=== PATIENT | female | born 1945 | race Caucasian/White ===

== ENCOUNTER 2020-02-07 12:49 | Inpatient (IN) | payer MEDICARE, OTHER, SELFPAY ==
[2020-02-07] VITALS (9 sets, daily range): BP systolic 96–131; BP diastolic 62–90; PULSE 85–101; RESP 18; TEMP 36.6–36.7; O2SAT 87–96; BMI 32.1
--- NOTE | 2020-02-07 13:00 | W.ED.FALL ---
HPI - Fall General: Chief Complaint: Fall Stated Complaint: FALL-HIP PAIN Time Seen by Provider: 02/07/20 13:00 History of Present Illness: HPI Narrative: 79-year-old female presents the emergency room via EMS from home. She had a mechanical fall around 730 this morning eventually her although the assistance of neighbors were able to get her up into a chair. She tried to maintain in the chair for a while realize she was not able to get up and get moving on her own and eventually did call the emergency room. She denied loss consciousness denied any other injuries not recently been sick she has any chest pain shortness of breath UTI symptoms any GI or symptoms. complaint: fall Onset (ago): hour(s) Fall witnessed: yes, by family Place fall occurred: home Loss of consciousness: None Symptoms prior to fall: none Context: tripped/slipped Associated symptoms-after fall: Denies abdominal pain or chest pain Review of Systems Const: Denies: fever(s), chills, body aches, change in appetite, fatigue or malaise ENMT: Denies: throat pain, ear or mastoid pain, nasal discharge or nasal congestion Card: Denies: chest pain, edema, dyspnea on exertion or orthopnea Resp: Denies: dyspnea, productive cough or non-productive cough GI: Denies: abdominal pain, nausea, vomiting, hematemesis, coffee ground emesis, diarrhea, constipation, bloating, hematochezia or melena : Denies: flank pain, difficulty voiding, dysuria, urinary frequency or urinary urgency Musc: Reports: joint pain (Left hip external rotation and shortening) Skin/Breast: Denies: rash or pruritus PFSH ED PFSH: Medical History Atrial fibrillation Branchial cleft cyst Congestive heart failure Diabetes mellitus Sciatica Surgical History H/O section H/O vein stripping History of appendectomy Family History Father Cancer Colon cancer - of this. Mother Broken hip Social History Smoking and tobacco status: former smoker Physical Exam Const: COMMON NORMALS: no acute distress GENERAL APPEARANCE: cooperative and comfortable ORIENTATION/CONSCIOUSNESS: Yes awake, Yes oriented to person, Yes oriented to place and Yes oriented to time HENMT: COMMON NORMALS: normocephalic, atraumatic, hearing grossly normal bilaterally, external ears normal, EAC's normal, TM's normal bilaterally, Normal nasal mucous membranes and turbinates present, moist oral mucous membranes and oropharynx normal HEAD & SCALP: normocephalic and atraumatic NOSE: Normal nasal mucous membranes and turbinates present EXTERNAL EAR: Yes external ears normal EXTERNAL AUDITORY CANAL: EAC's normal TYMPANIC MEMBRANE: TM's normal bilaterally Eye: COMMON NORMALS: Equal, round and reactive pupils present, EOMs intact bilaterally, conjunctivae normal and no scleral icterus CONJUNCTIVA: Yes conjunctivae normal PUPIL: Yes Equal, round and reactive pupils present Neck/C-Spine: COMMON NORMALS: full ROM, no lymphadenopathy, supple and no JVD Lymph: LYMPHATIC: no lymphadenopathy noted and no lymphedema noted Resp: COMMON NORMALS: normal respiratory effort, No retractions, No use of accessory muscles and clear to auscultation bilaterally AUSCULTATION: clear to auscultation bilaterally Cardio: COMMON NORMALS: no JVD, regular rate, regular rhythm and No murmurs present (Cardio) RATE: regular rate RHYTHM: regular rhythm GI: COMMON NORMALS: Soft to palpation and No hepatosplenomegaly present AUSCULTATION: Yes normoactive bowel sounds PALPATION: Yes Soft to palpation, No Tenderness to palpation present (GI), No Guarding due to palpation present (GI) and Yes No hepatosplenomegaly present Extremity: NARRATIVE EXTREMITY EXAM: External rotation and shortening of the left hip pulses at dorsalis pedis and posterior tibialis are present. Deformities consistent with fracture. Neuro: SENSORIUM/ORIENTATION: Yes oriented to person, Yes oriented to place and Yes oriented to time Skin: COMMON NORMALS: no rashes or lesions noted GENERAL SKIN EXAM: no rashes or lesions noted Course Vital Signs: Vital signs: Vital Signs Temperature 99.0 F 02/10/20 12:20 Pulse Rate 81 02/10/20 12:20 Respiratory Rate 16 02/10/20 12:20 Blood Pressure 106/61 02/10/20 12:20 Pulse Oximetry 97 02/10/20 11:35 MDM - Fall MDM Narrative: Medical decision making narrative: Intertrochanteric hip fracture. Discussed with Ortho and to the hospitalist will admit patient will need further evaluation prior to surgery. Lab Data: Labs: Lab Results 02/07/20 02/07/20 02/07/20 Range/Units 13:04 13:04 13:04 WBC 14.6 H (4.0-10.0) 10^3/ uL RBC 4.27 (4.1-5.3) 10^6/u L Hgb 11.8 (11.5-15.3) g/dL Hct 40.5 (37.0-47.0) % MCV 94.8 (81-99) fL MCH 27.6 L (28.0-34.0) pg MCHC 29.1 L (30.0-36.0) g/dL RDW 14.2 (12.1-15.1) % Plt Count 394 (130-400) 10^3/c mm MPV 10.2 (7.4-10.4) fL Neut % (Auto) 82.1 % Lymph % (Auto) 10.2 % [place] % (Auto) 6.5 % Eos % (Auto) 0.5 % Baso % (Auto) 0.3 % Neut # (Auto) 12.0 H (1.8-7.7) 10^3/u L Lymph # (Auto) 1.5 (0.8-4.8) 10^3/u L [place] # (Auto) 1.0 H (0.2-0.9) 10^3/u L Eos # (Auto) 0.1 (0.0-0.8) 10^3/u L Baso # (Auto) 0.1 (0.0-0.1) 10^3/u L Nucleated RBC % (a uto) 0 % Nucleated RBCs # 0.0 /100WBC PT 38.20 H (10.5-13.3) SECO NDS INR 3.71 H (0.8-1.2) Sodium 135 L (136-145) mmol/L Potassium 4.8 (3.5-5.1) mmol/L Chloride 95 L (98-107) mmol/L Carbon Dioxide 27 (22-29) mmol/L Anion Gap 17.8 (5-19) BUN 17 (8-23) mg/dL Creatinine 0.9 (0.5-0.9) mg/dL Glucose 193 H (65-115) mg/dL Calculated Osmolal ity 282 L (285-295) mOsm/k g Calcium 9.7 (8.5-10.5) mg/dL Total Bilirubin 0.3 (0.15-1.2) mg/dL AST 10 (0-32) U/L ALT 9 (0-33) U/L Alkaline Phosphata se 69 (35-105) IU/L Total Protein 8.2 (6.6-8.7) g/dL Albumin 4.1 (3.5-5.2) g/dL Globulin 4.1 (1.3-4.6) g/dL Discharge Plan Discharge Patient Disposition: Admitted As Inpatient Admit Provider: Yuni Weems Clinical Impression: Closed intertrochanteric fracture of left hip Qualifiers: Encounter type: subsequent encounter Fracture alignment: displaced Fracture healing: with routine healing Qualified Code(s): S72.142D - Displaced intertrochanteric fracture of left femur, subsequent encounter for closed fracture with routine healing Condition: Stable Referrals: Reece Garcia MD [Primary Care Provider] - Discharge Date/Time: 02/07/20 18:35 Coding Level of Care Code ED Manager Technical Training for Chg Fwd Exam Comprehensive
--- NOTE | 2020-02-07 13:01 | XR_ITS ---
WS: [id number] PELVIS AND LEFT HIP HISTORY: fall pain COMPARISON: None available. LEFT hip: Acute intertrochanteric hip fracture with avulsion of the lesser trochanter. There is impac tion along the fracture line. Osteophytic ridging around the acetabulum and mild joint space narrowin g. Bones are diffusely osteopenic throughout the pelvis. Bilateral osteoarthritis at the hip joints. XR/XR hip LT 2-3V wo/w pel* [id number] IMPRESSION: 1. Acute impacted LEFT intertrochanteric hip fracture with avulsion of the les ser trochanter. 2. Bilateral hip joint osteoarthritis.
[2020-02-07 13:41] LABS: Basophils # 0.1 10^3/uL (0.0-0.1); Basophils % 0.3 %; Eosinophils # 0.1 10^3/uL (0.0-0.8); Eosinophils % 0.5 %; Hematocrit 40.5 % (37.0-47.0); Hemoglobin 11.8 g/dL (11.5-15.3); Lymphocytes # 1.5 10^3/uL (0.8-4.8); Lymphocytes % 10.2 %; Mean Corpuscular HGB Conc 29.1 g/dL (30.0-36.0); Mean Corpuscular Hemoglobin 27.6 pg (28.0-34.0); Mean Corpuscular Volume 94.8 fL (81-99); Mean Platelet Volume 10.2 fL (7.4-10.4); Monocytes % 6.5 %; Neutrophils % 82.1 %; Nucleated Red Blood Cells % 0 %; Platelet Count 394 10^3/cmm (130-400); Red Blood Count 4.27 10^6/uL (4.1-5.3); Red Cell Distribution Width 14.2 % (12.1-15.1); White Blood Count 14.6 10^3/uL (4.0-10.0)
[2020-02-07 13:46] LABS: INR 3.71 (0.8-1.2)
--- NOTE | 2020-02-07 13:49 | PC.NURSE ---
portable xray at bedside
[2020-02-07 13:59] LABS: Alanine Aminotransferase 9 U/L (0-33); Albumin Level 4.1 g/dL (3.5-5.2); Alkaline Phosphatase 69 IU/L (35-105); Anion Gap 17.8 (5-19); Aspartate Amino Transferase 10 U/L (0-32); Blood Urea Nitrogen 17 mg/dL (8-23); Calcium 9.7 mg/dL (8.5-10.5); Carbon Dioxide 27 mmol/L (22-29); Chloride 95 mmol/L (98-107); Globulin 4.1 g/dL (1.3-4.6); Glucose 193 mg/dL (65-115); Osmolality Calculated 282 mOsm/kg (285-295); Potassium 4.8 mmol/L (3.5-5.1); Sodium 135 mmol/L (136-145); Total Bilirubin 0.3 mg/dL (0.15-1.2); Total Protein 8.2 g/dL (6.6-8.7)
--- NOTE | 2020-02-07 14:06 | XR_ITS ---
WS: [id number] PORTABLE CHEST HISTORY: hip fracture COMPARISON: 03/23/2008 Hyperinflated lungs. Slight elevation of the LEFT hemidiaphragm. No pleural effusion or pneumothorax. Cardiac size: Mildly enlarged cardiac silhouette. Mediastinum/Aorta: Ectatic thoracic aorta. No osseous abnormality seen. XR/XR chest 1V portable [id number] IMPRESSION: Chronic emphysema and cardiomegaly. No pneumonia.
[2020-02-07] MEDS: morphine 4 mg/mL SDV 1 mL IVP ×2 (14:13→18:26)
[2020-02-07] MEDS: ondansetron 2 mg/ML SDV 2 mL 4 MG IVP (14:13)
--- NOTE | 2020-02-07 17:24 | PM.CONSULT ---
Providers/Reason For Consult Consulting Physican/Specialty*: Mason fabian [facility]– [place][note 2] Orthopedic surgery Reason for Consult*: Left hip pain Primary Care Provider: Reece Garcia MD History of Present Illness History of Present Illness Darshana Puri is a 74 year old female who sustained a mechanical fall today. She had complaints of left hip pain. She was brought to the [facility] emergency room x-rays were taken which show displaced left intertrochanteric hip fracture and mild underlying osteoarthritis of the left hip. Review of Systems Const: Denies: fever(s) or chills Card: Reports: irregular heart rhythm (due to chronic afib) and swelling of feet/ankles; Denies: chest pain, palpitations, syncope or pre-syncope GI: Denies: abdominal pain, nausea or vomiting Musc: Reports: extremity pain (left hip due to fall) and joint pain (left hip); Denies: neck pain or back pain Neuro: Denies: frequent falls, dizziness or vertigo Psych: Denies: anxiety or depression Kade/Lymph: Reports: easy bruising (on coumadin) Meds/Allergies Home Medications and Allergies Home Medications Medication Instructions Recorded Confirmed Last Taken Type acetaminophen [Tylenol] 325 mg PO QID PRN 02/07/20 02/07/20 02/07/20 History amlodipine 2.5 mg PO DAILY 02/07/20 02/07/20 02/06/20 History carvedilol 25 mg PO BID 02/07/20 02/07/20 02/06/20 History citalopram 40 mg PO DAILY 02/07/20 02/07/20 02/06/20 History digoxin 0.25 mcg PO DAILY 02/07/20 02/07/20 02/06/20 History ferrous sulfate 65 mg PO BID 02/07/20 02/07/20 02/06/20 History furosemide 40 mg PO DAILY 02/07/20 02/07/20 02/06/20 History gabapentin 100 mg PO BID 02/07/20 02/07/20 02/06/20 History lisinopril 20 mg PO DAILY 02/07/20 02/07/20 02/06/20 History metformin See Rx Instructions .ROUTE .COMPLEX 02/07/20 02/07/20 02/06/20 History potassium chloride 20 meq PO DAILY 02/07/20 02/07/20 02/06/20 History simvastatin 40 mg PO DAILY 02/07/20 02/07/20 02/06/20 History warfarin See Rx Instructions .ROUTE .COMPLEX 02/07/20 02/07/20 02/06/20 History 5.5MG Allergies Allergy/AdvReac Type Severity Reaction Status Date / Time meperidine [From Demerol] Allergy Unknown Verified 02/07/20 13:00 PFSH Acute PFSH: Medical History (Updated 02/07/20 @ 20:31 by Reece Garcia MD) Atrial fibrillation Branchial cleft cyst Congestive heart failure Diabetes mellitus Sciatica Surgical History (Updated 02/07/20 @ 20:31 by Reece Garcia MD) H/O section H/O vein stripping History of appendectomy Family History (Updated 02/07/20 @ 20:33 by Reece Garcia MD) Father Cancer Colon cancer - of this. Mother Broken hip Social History (Updated 02/07/20 @ 15:11 by Alvaro Hillman DO) Smoking and tobacco status: former smoker Vitals/I&O/Wt Last Vital Signs Pulse 85 02/07/20 14:50 Resp 18 02/07/20 12:54 BP 109/65 02/07/20 14:50 Pulse Ox 90 02/07/20 14:50 Weight last 48 hrs Weight 250 lb Physical Exam Const: COMMON NORMALS: no acute distress, average body habitus, patient oriented x3, healthy appearing, alert and well nourished HENMT: COMMON NORMALS: atraumatic and moist oral mucous membranes HEAD & SCALP: atraumatic Neck/C-Spine: COMMON NORMALS: supple and no JVD Resp: COMMON NORMALS: normal respiratory effort, No use of accessory muscles and clear to auscultation bilaterally EFFORT & INSPECTION: Yes able to speak in complete sentences AUSCULTATION: clear to auscultation bilaterally Cardio: COMMON NORMALS: no JVD, regular rate, S1 normal heart sound present and S2 normal heart sound present; negative for regular rhythm RATE: regular rate RHYTHM: abnormal rhythm HEART SOUNDS: S1 normal heart sound present and S2 normal heart sound present Extremity: OTHER: left lower extremity shortened and externally rotated compared to right Neuro: COMMON NORMALS: patient oriented x3 SENSORIUM/ORIENTATION: Yes alert Urinary Catheter Management^: Cates: Cath Placed During This Visit: yes Reason for Continuing Indwelling Catheter: Required Immobilization for Trauma or Surgery or Anesthesia Urinary Catheter Date of Insertion: 02/07/20 Urinary Catheter Time of Insertion: 16:30 A&P Assessment and plan (1) Closed intertrochanteric fracture of left hip: Patient to be medically optimized prior to surgery for tomorrow. Coumadin placed on hold hospital team to work on reversing her Coumadin. The ER has already ordered a dose of oral vitamin K. Patient will most likely require fresh frozen plasma in the morning prior to surgery to normalize her INR Prophylactic antibiotic ordered prior to surgery but with IV cefazolin and vancomycin due to the high prevalence of MRSA in the local area and cefazolin as it is better to use for gram-positive organisms other than MRSA Tranexamic acid ordered preop and will be ordered prior to closure to decrease blood loss due to the patient's anticoagulation status Patient to be n.p.o. after midnight Type and screen and type and cross orders have been placed as well as a.m. labs to check CBC, BMP and INR Status: Acute (2) Diabetes mellitus: Status: Acute (3) Atrial fibrillation: Status: Acute (4) Congestive heart failure: Status: Acute (5) Sciatica: Status: Acute Consult Attestations Medical Necessity Statement: Patient's care will likely cover 2 overnight stays depending on her postoperative progress discharge from facility to long-term versus home. Plan will be for the patient be weightbearing as tolerated postoperatively Time Spent in Patient Care: 16 - 35 minutes (>than 50% of time spent in counselling and/or direct pt care on unit). Coding Level of Care Code Acute Nursing Informatics Specialist for Junior Kumar Diagnoses Closed intertrochanteric fracture of left hip S72.142A Diabetes mellitus E11.9 Atrial fibrillation I48.91 Congestive heart failure I50.9 Sciatica M54.30
[2020-02-07] MEDS: phytonadione (ADULT) 10 mg/mL Ampule 1 mL 5 MG PO (17:30)
[2020-02-07 17:45] LABS: Add Urine Microscopic? YES; Bilirubin Urine 1+ (NEGATIVE); Blood Urine 2+ (Negative); Glucose Urine UA Norm (Normal); Ketones Urine Negative (Negative); Leukocyte Esterase Urine Trace (Negative); Nitrate Urine Positive (Negative); Protein Urine Neg (Negative); Specific Gravity, Urine 1.015 (1.005-1.030); Urine Appearance Cloudy (CLEAR); Urine Color Yellow (Yellow); Urobilinogen Urine 1 mg/dL (Negative); pH Urine 5 (5-7)
[2020-02-07 17:58] LABS: Add Urine Culture? Yes; Bacteria Urine 4+; Squamous Epithelial Cell Urine 0-4 (0-5)
--- NOTE | 2020-02-07 20:25 | ECG_ITS ---
Measurements Intervals Winner Rate: 101 P: MT: 0 QRS: -44 QRSD: 101 T: 58 QT: 339 QTc: 439 ATRIAL FIBRILLATION WITH RAPID VENTRICULAR RESPONSE MARKED LEFT AXIS DEVIATION [QRS AXIS < -30] INCOMPLETE RIGHT BUNDLE BRANCH BLOCK [90+ ms QRS DURATION, TERMINAL R IN V1/V2, 40+ ms S IN I/aVL/V4/V5/V6] SEPTAL MYOCARDIAL INFARCTION [40+ ms Q WAVE IN V1/V2], PROBABLY OLD No previous ECG available for comparison Electronically Signed On 02-08-2020 11:49:23 CDT by Gigi Ortega M.D. [email or web address]
--- NOTE | 2020-02-07 20:26 | PM.HP ---
Providers/Chief Complaint Admitting Physician: Reece Garcia MD Primary Care Provider: Reece Garica MD Chief Complaint: fall History of Present Illness Darshana Puri is a 74 year old female with past medical history of CHF with ejection fraction of 35% in 2007, diabetes mellitus type 2, hypertension, atrial fibrillation on Coumadin, dyslipidemia, chronic low back pain. The patient was in her home and making her bed, when she got tripped up in her sheets and fell onto her left side. The patient says that she hit her head but did not lose consciousness. The patient noted significant pain in the left hip. She had difficulty with standing so her and a friend helped her and they came to the emergency department. In the ER the patient was found to have a fracture of the left hip. Dr. Russell has evaluated the patient. I have been consulted to address medical issues. The patient denies any current or recent chest pains. She denies any tightness, squeezing or pressure in her chest. Patient states that she could typically walk around without having significant dyspnea. The patient denies any cough, fever, nausea, vomiting, diarrhea, constipation, abdominal pain. She notes incontinence that is chronic in nature without dysuria. Medications/Allergies Home Medications Medication Instructions Recorded Confirmed Last Taken Type acetaminophen [Tylenol] 325 mg PO QID PRN 02/07/20 02/07/20 02/07/20 History amlodipine 2.5 mg PO DAILY 02/07/20 02/07/20 02/06/20 History carvedilol 25 mg PO BID 02/07/20 02/07/20 02/06/20 History citalopram 40 mg PO DAILY 02/07/20 02/07/20 02/06/20 History digoxin 0.25 mcg PO DAILY 02/07/20 02/07/20 02/06/20 History ferrous sulfate 65 mg PO BID 02/07/20 02/07/20 02/06/20 History furosemide 40 mg PO DAILY 02/07/20 02/07/20 02/06/20 History gabapentin 100 mg PO BID 02/07/20 02/07/20 02/06/20 History lisinopril 20 mg PO DAILY 02/07/20 02/07/20 02/06/20 History metformin See Rx Instructions .ROUTE .COMPLEX 02/07/20 02/07/20 02/06/20 History potassium chloride 20 meq PO DAILY 02/07/20 02/07/20 02/06/20 History simvastatin 40 mg PO DAILY 02/07/20 02/07/20 02/06/20 History warfarin See Rx Instructions .ROUTE .COMPLEX 02/07/20 02/07/20 02/06/20 History 5.5MG Allergies Allergy/AdvReac Type Severity Reaction Status Date / Time meperidine [From Demerol] Allergy Unknown Verified 02/07/20 13:00 PFSH Acute PFSH: Medical History (Updated 02/07/20 @ 20:31 by Reece Garcia MD) Atrial fibrillation Branchial cleft cyst Congestive heart failure Diabetes mellitus Sciatica Surgical History (Updated 02/07/20 @ 20:31 by Reece Garcia MD) H/O section H/O vein stripping History of appendectomy Family History (Updated 02/07/20 @ 20:33 by Reece Garcia MD) Father Cancer Colon cancer - of this. Mother Broken hip Social History (Updated 02/07/20 @ 20:33 by Reece Garcia MD) Smoking and tobacco status: former smoker Vitals/I&O/Wt Last Vital Signs Temp 98.0 F 02/07/20 19:55 Pulse 101 H 02/07/20 19:55 Resp 18 02/07/20 19:55 BP 131/90 02/07/20 19:55 Pulse Ox 91 02/07/20 19:55 02/07/20 02/07/20 02/07/20 06:59 14:59 22:59 Output Total 550 / 550 Balance -550 / -550 Weight last 48 hrs Weight 250 lb Physical Exam Narrative: EXAM NARRATIVE: General: Alert and oriented x3 Eyes: PERRLA, EOMI Mouth: Mildly dry mucous membranes without lesions Cardiac: Regular rate with irregularly irregular rhythm. No significant murmurs appreciated. Lungs: Decreased air entry bilaterally with occasional wheezes, without crackles or rhonchi. Abdomen: Soft, nontender, no hepatosplenomegaly noted Extremities: No edema. Good pulses in the bilateral feet. Tenderness over the left hip to palpation. Left leg is shorter than the right and everted. Urinary Catheter Management^: Cates: Cath Placed During This Visit: yes Reason for Continuing Indwelling Catheter: Required Immobilization for Trauma or Surgery or Anesthesia Urinary Catheter Date of Insertion: 02/07/20 Urinary Catheter Time of Insertion: 16:30 Data : 02/07/20 13:04 02/07/20 13:04 A&P Assessment and plan (1) Congestive heart failure: Status: Acute (2) Atrial fibrillation: Status: Acute (3) Diabetes mellitus: Status: Acute (4) Closed intertrochanteric fracture of left hip: Status: Acute (5) Hypertension: Status: Acute Additional A&P Information 1. Acute fracture of the left hip -the patient had a traumatic fracture of the left hip. She has been seen by Dr. Russell who plans to do surgery tomorrow. From a medical standpoint, the patient does have some underlying risks specifically related to her heart. I would like to get an echocardiogram to look for signs of change compared to her last done in 2007. This has been ordered for tomorrow morning. We will keep the patient n.p.o. after midnight and plan tentatively for surgery tomorrow depending on results. 2. Congestive heart failure -the patient had an ejection fraction of 35% on echocardiogram done in 2007. She had not wanted to follow-up with further testing in the past. The patient currently denies any chest pains, shortness of breath or other cardiac related symptoms. She has been able to ambulate well without significant dyspnea. I would like to get an echocardiogram to further evaluate her overall function prior to surgery if possible. If there are concerning signs, I may recommend that cardiology sees the patient prior to surgery to help assess the overall risk of a significant surgery. I did speak with the patient regarding her CODE STATUS and she would like to be full code at this time. She will speak with her and discuss possible nuances with him tomorrow morning prior to surgery. 3. Atrial fibrillation -the patient is currently rate controlled with her A. fib and has been on Coumadin. She was given vitamin K in the ER. We will recheck INR tomorrow. 4. Diabetes mellitus -I will check an A1c and have the patient use sliding scale insulin while in the hospital. 5. Hypertension -the patient's blood pressures currently stable. Continue with home medications. 6. Urinary tract infection -patient has a UTI and we will make sure that she gets IV antibiotics prior to surgery. Urine cultures currently pending. 7. Prophylaxis -SCDs for now and after surgery will plan for prophylactic medications per surgery's recommendations. Attestations Medical Necessity Statement*: The patient will be here for greater than 2 midnights due to treatment of hip fracture. Inpatient care is required. Coding Level of Care Code Acute Commercial Light Fixture Assembler for Junior Kumar Diagnoses Congestive heart failure I50.9 Atrial fibrillation I48.91 Diabetes mellitus E11.9 Closed intertrochanteric fracture of left hip S72.142A Hypertension I10
[2020-02-07] MEDS: sodium chloride 0.9% 1,000 ML 100 ML IV (20:35)
[2020-02-07] MEDS: carvedilol 25 mg Tablet PO (20:36)
[2020-02-07] MEDS: gabapentin 100 mg Capsule PO (20:36)
[2020-02-07 22:00] LABS: Glucose Point of Care 189 mg/dL (70-110)
[2020-02-07] MEDS: cefTRIAXone 2,000 MG in sodium chloride 0.9% (plus) 50 ML 100 MG IV (22:07)
[2020-02-08] VITALS (33 sets, daily range): BP systolic 91–140; BP diastolic 49–81; PULSE 77–112; RESP 15–21; TEMP 36.5–37.2; O2SAT 91–99
--- NOTE | 2020-02-08 | XR_ITS ---
WS: [id number] C-ARM RADIOGRAPHS LEFT HIP; 6 IMAGES HISTORY: Fracture fixation COMPARISON: 02/07/2020 Intraoperative imaging during intramedullary stefania and femoral neck screw placement for fixation of an intertrochanteric fracture. Fracture is now in good position alignment. Avulsion of the greater troch anter is also evident. XR/XR hip LT 2-3V wo/w pel* [id number] IMPRESSION: Status post ORIF LEFT intertrochanteric hip fracture in good alignment.
--- NOTE | 2020-02-08 | SCC_ITS ---
Procedure Done: Attempted closed followed by open reduction internal fixation with intramedullary nailing with proximal distal interlocking left intertrochanteric hip fracture 218.5 seconds of fluoroscopic guidance, for a cumulative dose of 60.14 mGy, was provided to Dr. Russell by the radiology department. C-arm images of the LEFT hip were saved for the patient's permanent record. [facility]
[2020-02-08 02:47] LABS: Alanine Aminotransferase 8 U/L (0-33); Albumin Level 3.4 g/dL (3.5-5.2); Alkaline Phosphatase 56 IU/L (35-105); Anion Gap 12.5 (5-19); Aspartate Amino Transferase 10 U/L (0-32); Blood Urea Nitrogen 14 mg/dL (8-23); Calcium 8.3 mg/dL (8.5-10.5); Carbon Dioxide 31 mmol/L (22-29); Chloride 97 mmol/L (98-107); Glucose 149 mg/dL (65-115); Osmolality Calculated 281 mOsm/kg (285-295); Phosphorus 3.9 mg/dL (2.5-4.5); Potassium 4.5 mmol/L (3.5-5.1); Sodium 136 mmol/L (136-145); Total Bilirubin 0.3 mg/dL (0.15-1.2); Total Protein 6.4 g/dL (6.6-8.7)
[2020-02-08 02:48] LABS: Basophils % 0.3 %; Eosinophils # 0.1 10^3/uL (0.0-0.8); Eosinophils % 0.9 %; Hemoglobin 9.4 g/dL (11.5-15.3); Lymphocytes # 1.2 10^3/uL (0.8-4.8); Lymphocytes % 14.8 %; Mean Corpuscular HGB Conc 29.4 g/dL (30.0-36.0); Mean Corpuscular Hemoglobin 27.8 pg (28.0-34.0); Mean Corpuscular Volume 94.7 fL (81-99); Mean Platelet Volume 9.9 fL (7.4-10.4); Monocytes # 0.8 10^3/uL (0.2-0.9); Monocytes % 10.5 %; Neutrophils # 5.7 10^3/uL (1.8-7.7); Neutrophils % 73.1 %; Nucleated Red Blood Cells % 0 %; Platelet Count 288 10^3/cmm (130-400); Red Blood Count 3.38 10^6/uL (4.1-5.3); Red Cell Distribution Width 14.2 % (12.1-15.1); White Blood Count 7.8 10^3/uL (4.0-10.0)
[2020-02-08 03:07] LABS: Estmated Average Glucose 154
[2020-02-08] MEDS: morphine 4 mg/mL SDV 1 mL 2 MG IVP ×2 (05:39→09:29)
[2020-02-08 06:12] LABS: Glucose Point of Care 170 mg/dL (70-110)
[2020-02-08] MEDS: sodium chloride 0.9% 1,000 ML 100 ML IV ×2 (07:26→17:19)
--- NOTE | 2020-02-08 07:56 | P.PN_ITS ---
Subjective Subjective: Interval history: Patient is feeling well today. She denies any chest pains or shortness of breath. She has had some pain with the hip fracture that is been well controlled with morphine as long as she does not move. Vitals/I&O/Wt Last Vital Signs Temp 98.2 F 02/08/20 04:00 Pulse 103 H 02/08/20 04:00 Resp 18 02/08/20 05:39 BP 132/70 02/08/20 04:00 Pulse Ox 96 02/08/20 04:00 02/07/20 02/08/20 02/08/20 22:59 06:59 14:59 Intake Total 1000 / 1000 50 / 50 Output Total 550 / 550 400 / 950 Balance -550 / -550 600 / 50 50 / 50 Weight last 48 hrs Weight 250 lb Physical Exam Narrative: EXAM NARRATIVE: General: Alert and oriented x3 Eyes: PERRLA, EOMI Mouth: Mucous membranes moist. Cardiac: Regular rate with irregularly irregular rhythm. No significant murmurs appreciated. Lungs: Decreased air entry bilaterally with occasional wheezes, without crackles or rhonchi. Abdomen: Soft, nontender, no hepatosplenomegaly noted Extremities: No edema. Good pulses in the bilateral feet. Tenderness over the left hip to palpation. Left leg is shorter than the right and everted. Urinary Catheter Management^: Cates: Cath Placed During This Visit: yes Reason for Continuing Indwelling Catheter: Required Immobilization for Trauma or Surgery or Anesthesia Urinary Catheter Date of Insertion: 02/07/20 Urinary Catheter Time of Insertion: 16:30 Data : 02/08/20 02:05 02/08/20 02:05 Micro: Microbiology 02/07/20 21:01 Blood Culture - Preliminary Blood SPECIMEN COLLECTED 02/07/20 20:53 Blood Culture - Preliminary Blood SPECIMEN COLLECTED A&P Assessment and plan (1) Congestive heart failure: Status: Acute (2) Atrial fibrillation: Status: Acute (3) Diabetes mellitus: Status: Acute (4) Closed intertrochanteric fracture of left hip: Status: Acute (5) Hypertension: Status: Acute Additional A&P Information 1. Acute fracture of the left hip -the patient had a traumatic fracture of the left hip. She has been seen by Dr. Russell who plans to do surgery later today. From a medical standpoint, the patient does have some underlying risks specifically related to her heart. Echocardiogram was done this morning and I would like to have cardiology look for signs of change compared to her last done in 2007. We will keep the patient n.p.o. after midnight and plan tentatively for surgery tomorrow depending on results. 2. Congestive heart failure -the patient had an ejection fraction of 35% on echocardiogram done in 2007. She had not wanted to follow-up with further testing in the past. The patient currently denies any chest pains, shortness of breath or other cardiac related symptoms. She has been able to ambulate well without significant dyspnea. Echocardiogram was done this morning. If there are concerning signs, I may recommend that cardiology sees the patient prior to surgery to help assess the overall risk of a significant surgery. I did speak with the patient regarding her CODE STATUS and she would like to be full code at this time. She will speak with her and discuss possible nuances with him tomorrow morning prior to surgery. 3. Atrial fibrillation -the patient is currently rate controlled with her A. fib and has been on Coumadin. She was given vitamin K in the ER. INR for this morning is pending. 4. Diabetes mellitus -I will check an A1c and have the patient use sliding scale insulin while in the hospital. 5. Hypertension -the patient's blood pressures currently stable. Continue with home medications. 6. Urinary tract infection -patient has a UTI and was given 2 g of Rocephin last night. We will continue with this every 24 hours unless she is given other antibiotics for surgical prophylaxis which would also cover. 7. Prophylaxis -SCDs for now and after surgery will plan for prophylactic medications per surgery's recommendations. Attestations Medical Necessity Statement*: The patient will be here for greater than 2 midnights for treatment of acute hip fracture. She continues to need inpatient care. Coding Level of Care Code Acute Phlebotomy Services Technician for Junior Kumar Diagnoses Congestive heart failure I50.9 Atrial fibrillation I48.91 Diabetes mellitus E11.9 Closed intertrochanteric fracture of left hip S72.142A Hypertension I10
[2020-02-08 08:08] LABS: INR 2.44 (0.8-1.2)
[2020-02-08] MEDS: amlodipine 5 mg Tablet 2.5 MG PO (08:53)
[2020-02-08] MEDS: FUROsemide 40 mg Tablet PO (08:53)
[2020-02-08] MEDS: atorvastatin 40 mg Tablet 20 MG PO (08:53)
[2020-02-08] MEDS: citalopram 20 mg Tablet 40 MG PO (08:53)
[2020-02-08] MEDS: carvedilol 25 mg Tablet PO ×2 (08:53→17:31)
[2020-02-08] MEDS: lisinopril 20 mg Tablet PO (08:54)
[2020-02-08] MEDS: gabapentin 100 mg Capsule PO ×2 (08:54→17:31)
[2020-02-08] MEDS: sodium chloride 0.9% (100 ml) 100 ML 50 ML (09:16)
[2020-02-08] MEDS: digoxin 250 mcg Tablet PO (09:30)
[2020-02-08 10:54] LABS: INR 1.43 (0.8-1.2)
[2020-02-08 11:04] LABS: Glucose Point of Care 169 mg/dL (70-110)
--- NOTE | 2020-02-08 11:24 | PC.CHAP ---
Pastoral Care Encounter/Spiritual Assessment Type of Contact [] Declined engine room helper visit [] Patient/Family/Request visit [] Outpatient visit [] Follow-up visit [] Physician referral [] Code/Alert [x] Routine visit [] Staff referral [] Actively dying [] Patient sleeping [] Family support [] [] Out of room [] Palliative care [] [] Receiving care in room [] Pre-surgical visit [] Trauma [] Long length of stay [] ICU visit [] Other: Relational/Emotional Strength [x] Patient feels connected with others/family/visitors/staff [] Distress [] Loneliness/isolation [] Abandonment Spirituality of Patient [x] Person of Mago [x] Attends Evangelical of their Mago [x] Believes in Prayer [x] Reads Bible or Oriental Orthodox materials [] There are Spiritual issues to be addressed Supervisor Garage Interventions [x] Prayer [x] Active listening [x] Non-anxious presence [x] Spiritual/emotional support [] Crisis/trauma care [] Spiritual counseling [] Bereavement support [] Provided bereavement packet [] Provided Bible/devotional materials [] Provided toy/stuffed animal, coloring book to patient or family member [] Provided Communion [] Anointing/[place] [] Salvation [x] Completed spiritual assessment [] Other: Impact on Illness or Injury [] Angry [] Fearful [] Anxious [] Often cries [] Exhaustion [] Unable to work [] Unable to attend buddhism [] Unable to walk/stand [] Unable to read [] Unable to drive [] Unable to eat/drink [] Unable to sleep [] Unable to be with family [] Patient intubated [x] Other: Summary Patient is strong in her committed mago in the person and work of Robert Jang. Time spent with patient 15 minutes
--- NOTE | 2020-02-08 11:37 | ANES.PREANE2 ---
Pre-Anesthetic Assessment Pre-Anesthetic Assessment: Height/Weight: Height 1.88 m Weight 113.398 kg Temp Pulse Resp BP Pulse Ox 98.5 F 84 16 100/56 94 02/08/20 10:55 02/08/20 10:55 02/08/20 10:55 02/08/20 10:55 02/08/20 10:55 Preop Diagnosis: displaced lef tintertrochanteric hip fracture Proposed Procedure: Operation Date: 02/08/20 12:30 Proposed Procedures p Hip Screw Closed Reduction Percutaneous Pinning Hip Screw(Left) - Mason Russell DO Last intake: Intake Last Liquid Date 02/07/20 Last Liquid Time 08:00 Last Solid Date 02/07/20 Last Solid Time 08:00 Social: Social History: Tobacco (quit) and No alcohol Exam: Pre-Anes Outpt Exam: alert, oriented x 3, clear to auscultation bilaterally and regular rate & rhythm (irreg rhythm) Airway: Submandibular: WNL Cervical ROM: WNL MP: 2 Dentition: False (upper and lower) History/ROS: No significant history except as noted Pulmonary: Pulmonary: PGAE CV/HEM: CV/HEM: Arrythmia (afib), CHF and HTN : : None reported Hepatic: Hepatic: None reported GI: GI: None reported Metabolic: Metabolic: DM, Hyperlipidemia and Morbid obesity Musc/skel: Musc/skel: OA/DJD Neuropsych: Neuropsych: Anxiety and Depression Anesthetic Plan: ASA status: 4 Anesthesia: Anesthesia Evaluation and General Risk of > 500 ml blood loss (7ml/kg in children): No Meds/Allergies Current Medications: Current Medications Generic Name Dose Route Start Last Admin Trade Name Freq PRN Reason Stop Dose Admin Amlodipine Besylat e 2.5 mg 02/08/20 09:00 02/08/20 08:53 Norvasc PO 2.5 mg DAILY EMY Administration Atorvastatin Calci um 20 mg 02/08/20 09:00 02/08/20 08:53 Lipitor PO 20 mg DAILY EMY Administration Carvedilol 25 mg 02/07/20 19:14 02/08/20 08:53 Coreg PO 25 mg BID EMY Administration Citalopram Hydrobr omide 40 mg 02/08/20 09:00 02/08/20 08:53 Celexa PO 40 mg DAILY EMY Administration Digoxin 250 mcg 02/08/20 09:30 02/08/20 09:30 Lanoxin PO 250 mcg DAILY EMY Administration Furosemide 40 mg 02/08/20 09:00 02/08/20 08:53 Lasix PO 40 mg DAILY EMY Administration Gabapentin 100 mg 02/07/20 19:14 02/08/20 08:54 Neurontin PO 100 mg BID EMY Administration Sodium Chloride 1,000 mls @ 100 m ls/hr 02/07/20 19:14 02/08/20 07:26 Sodium Chloride 0.9% IV 100 mls/hr .Q10H EMY Administration Insulin Aspart 0 unit 02/07/20 21:00 02/08/20 11:34 Novolog SUBCUT Not Given WM&BEDTIME EMY Protocol Lisinopril 20 mg 02/08/20 09:00 02/08/20 08:54 Prinivil PO 20 mg DAILY EMY Administration Morphine Sulfate 2 mg 02/07/20 19:14 02/08/20 09:29 Morphine IVP 2 mg Q4H PRN Administration SEVERE PAIN Non-Formulary Medi cation 65 mg 02/07/20 19:14 02/08/20 08:54 Ferrous Sulfate PO Not Given BID EMY Potassium Chloride 20 meq 02/08/20 09:00 02/08/20 08:53 Klor-Con 10 PO 20 meq DAILY EMY Administration PFSH Anesthesia PFSH: Medical History Atrial fibrillation Branchial cleft cyst Congestive heart failure Diabetes mellitus Sciatica Surgical History H/O section H/O vein stripping History of appendectomy Family History Father Cancer Colon cancer - of this. Mother Broken hip Social History Smoking and tobacco status: former smoker Data Anesthesia CBC & Chem 7: 02/08/20 02:05 02/08/20 02:05 Other Labs: Laboratory Results - last 48 hr 02/07/20 02/07/20 02/07/20 13:04 13:04 13:04 WBC 14.6 H RBC 4.27 Hgb 11.8 Hct 40.5 MCV 94.8 MCH 27.6 L MCHC 29.1 L RDW 14.2 Plt Count 394 MPV 10.2 Neut % (Auto) 82.1 Lymph % (Auto) 10.2 [place] % (Auto) 6.5 Eos % (Auto) 0.5 Baso % (Auto) 0.3 Neut # (Auto) 12.0 H Lymph # (Auto) 1.5 [place] # (Auto) 1.0 H Eos # (Auto) 0.1 Baso # (Auto) 0.1 Nucleated RBC % (auto) 0 Nucleated RBCs # 0.0 PT 38.20 H INR 3.71 H Sodium 135 L Potassium 4.8 Chloride 95 L Carbon Dioxide 27 Anion Gap 17.8 BUN 17 Creatinine 0.9 Glucose 193 H POC Glucose Estimat Average Glucose Hemoglobin A1c Calculated Osmolality 282 L Calcium 9.7 Phosphorus Magnesium Total Bilirubin 0.3 AST 10 ALT 9 Alkaline Phosphatase 69 C-React Prot High Sens Total Protein 8.2 Albumin 4.1 Globulin 4.1 Urine Color Urine Appearance Urine pH Ur Specific [place] Urine Protein Urine Glucose (UA) Urine Ketones Urine Blood Urine Nitrate Urine Bilirubin Urine Urobilinogen Ur Leukocyte Esterase Urine RBC Urine WBC Ur Squamous Epith Cells Urine Bacteria Blood Type Rho(D) Type Antibody Screen Crossmatch 02/07/20 02/07/20 02/07/20 16:24 17:29 21:58 WBC RBC Hgb Hct MCV MCH MCHC RDW Plt Count MPV Neut % (Auto) Lymph % (Auto) [place] % (Auto) Eos % (Auto) Baso % (Auto) Neut # (Auto) Lymph # (Auto) [place] # (Auto) Eos # (Auto) Baso # (Auto) Nucleated RBC % (auto) Nucleated RBCs # PT INR Sodium Potassium Chloride Carbon Dioxide Anion Gap BUN Creatinine Glucose POC Glucose 189 Estimat Average Glucose Hemoglobin A1c Calculated Osmolality Calcium Phosphorus Magnesium Total Bilirubin AST ALT Alkaline Phosphatase C-React Prot High Sens Total Protein Albumin Globulin Urine Color Yellow Urine Appearance Cloudy Urine pH 5 Ur Specific [place] 1.015 Urine Protein Neg Urine Glucose (UA) Norm Urine Ketones Negative Urine Blood 2+ H Urine Nitrate Positive H Urine Bilirubin 1+ H Urine Urobilinogen 1 H Ur Leukocyte Esterase Trace H Urine RBC 5-10 H Urine WBC 10-15 H Ur Squamous Epith Cells 0-4 H Urine Bacteria 4+ H Blood Type A Positive Rho(D) Type Positive Antibody Screen Negative Crossmatch See Detail 02/08/20 02/08/20 02/08/20 02:05 02:05 02:05 WBC 7.8 RBC 3.38 L Hgb 9.4 L Hct 32.0 L MCV 94.7 MCH 27.8 L MCHC 29.4 L RDW 14.2 Plt Count 288 MPV 9.9 Neut % (Auto) 73.1 Lymph % (Auto) 14.8 [place] % (Auto) 10.5 Eos % (Auto) 0.9 Baso % (Auto) 0.3 Neut # (Auto) 5.7 Lymph # (Auto) 1.2 [place] # (Auto) 0.8 Eos # (Auto) 0.1 Baso # (Auto) 0.0 Nucleated RBC % (auto) 0 Nucleated RBCs # 0.0 PT INR Sodium 136 Potassium 4.5 Chloride 97 L Carbon Dioxide 31 H Anion Gap 12.5 BUN 14 Creatinine 0.7 Glucose 149 H POC Glucose Estimat Average Glucose 154 Hemoglobin A1c 7.0 H Calculated Osmolality 281 L Calcium 8.3 L Phosphorus 3.9 Magnesium 2.0 Total Bilirubin 0.3 AST 10 ALT 8 Alkaline Phosphatase 56 C-React Prot High Sens 6.550 H Total Protein 6.4 L D Albumin 3.4 L Globulin 3.0 Urine Color Urine Appearance Urine pH Ur Specific [place] Urine Protein Urine Glucose (UA) Urine Ketones Urine Blood Urine Nitrate Urine Bilirubin Urine Urobilinogen Ur Leukocyte Esterase Urine RBC Urine WBC Ur Squamous Epith Cells Urine Bacteria Blood Type Rho(D) Type Antibody Screen Crossmatch 02/08/20 02/08/20 02/08/20 02:05 06:09 10:35 WBC RBC Hgb Hct MCV MCH MCHC RDW Plt Count MPV Neut % (Auto) Lymph % (Auto) [place] % (Auto) Eos % (Auto) Baso % (Auto) Neut # (Auto) Lymph # (Auto) [place] # (Auto) Eos # (Auto) Baso # (Auto) Nucleated RBC % (auto) Nucleated RBCs # PT 27.40 H 17.90 H D INR 2.44 H 1.43 H Sodium Potassium Chloride Carbon Dioxide Anion Gap BUN Creatinine Glucose POC Glucose 170 Estimat Average Glucose Hemoglobin A1c Calculated Osmolality Calcium Phosphorus Magnesium Total Bilirubin AST ALT Alkaline Phosphatase C-React Prot High Sens Total Protein Albumin Globulin Urine Color Urine Appearance Urine pH Ur Specific [place] Urine Protein Urine Glucose (UA) Urine Ketones Urine Blood Urine Nitrate Urine Bilirubin Urine Urobilinogen Ur Leukocyte Esterase Urine RBC Urine WBC Ur Squamous Epith Cells Urine Bacteria Blood Type Rho(D) Type Antibody Screen Crossmatch 02/08/20 10:51 WBC RBC Hgb Hct MCV MCH MCHC RDW Plt Count MPV Neut % (Auto) Lymph % (Auto) [place] % (Auto) Eos % (Auto) Baso % (Auto) Neut # (Auto) Lymph # (Auto) [place] # (Auto) Eos # (Auto) Baso # (Auto) Nucleated RBC % (auto) Nucleated RBCs # PT INR Sodium Potassium Chloride Carbon Dioxide Anion Gap BUN Creatinine Glucose POC Glucose 169 Estimat Average Glucose Hemoglobin A1c Calculated Osmolality Calcium Phosphorus Magnesium Total Bilirubin AST ALT Alkaline Phosphatase C-React Prot High Sens Total Protein Albumin Globulin Urine Color Urine Appearance Urine pH Ur Specific [place] Urine Protein Urine Glucose (UA) Urine Ketones Urine Blood Urine Nitrate Urine Bilirubin Urine Urobilinogen Ur Leukocyte Esterase Urine RBC Urine WBC Ur Squamous Epith Cells Urine Bacteria Blood Type Rho(D) Type Antibody Screen Crossmatch Micro: Microbiology 02/07/20 21:01 Blood Culture - Preliminary Blood SPECIMEN COLLECTED 02/07/20 20:53 Blood Culture - Preliminary Blood SPECIMEN COLLECTED Cardiac Studies: No Data to Display
[2020-02-08] MEDS: sodium chloride 0.9% 1,000 ML 30 ML IV (12:01)
[2020-02-08] MEDS: fentaNYL 50 mcg/mL INJ 2mL IVP (12:02)
--- NOTE | 2020-02-08 12:22 | W.PM.OPSUD ---
Surgery/Procedure H&P Update DATE OF PROCEDURE: February 08, 2020 DATE H&P PERFORMED: 02/07/20 H&P UPDATE INFORMATION: I have examined patient prior to procedure CHANGES TO PREVIOUS DOCUMENTATION: INR improved with vit K and 2 units of FFP now 1.43 down from 3.72 PREOP DIAGNOSIS: displaced left intertrochanteric hip fracture PRIMARY INDICATION FOR PROCEDURE: as above PLANNED PROCEDURE: Operation Date: 02/08/20 12:30 Proposed Procedures p Hip Screw Closed Reduction Percutaneous Pinning Hip Screw(Left) - Mason Russell DO
--- NOTE | 2020-02-08 12:33 | P.OP_ITS ---
Operative Report Date of procedure: February 08, 2020 Pre-op Diagnosis: displaced left intertrochanteric hip fracture Post-op diagnosis: same Post-op Findings: Satisfactory reduction of fracture placement of intramedullary nail with lag screw and distal interlocking screw. Procedure Done: Attempted closed followed by open reduction internal fixation with intramedullary nailing with proximal distal interlocking left intertrochanteric hip fracture Specimens removed/disposition: Not applicable Pathology: none sent Surgeon: Mason Russell Anesthesia: General Estimated blood loss (mL): 1,000 Urine output (mL): 350 Findings: Difficult fracture to reduce with interposed soft tissue requiring us to open the fracture site and put a bone-holding forceps on to reduce the fracture prior to perform the intramedullary nailing. Intraoperative risk against the knee demonstrate reduction of fracture and appropriate placement of implants within the intramedullary canal distal locking hole and within the femoral head and neck. Condition: stable Disposition: PACU Brief History: 74 y/o white female who fell at home yesterday while making her bed. She sustained a displaced intertrochanteric hip fracture. Patient on Coumadin for atrial fibrillation. Coumadin is been reversed. We discussed risks, benefits potential complications of surgery with the patient she is agreeable to proceed with surgery. Risk of surgery include are not limited to failure of all pain potential cut out or breakage of implants, failure fracture to heal, wound healing complications, blood clots, heart attack, stroke risk up to including . All questions were answered patient can be proceed with surgery. We discussed the potential for use of blood blood products to reverse the effect of her Coumadin as well as the potential need for blood neither during surgery or after surgery. All the patient's questions were answered she is agreeable to proceed with surgery. Procedure: Patient identified. Surgical site was signed. Surgical permit was signed. Patient received 2 g of Ancef intravenously for surgical prophylaxis. She was taken the operating. She was placed under general anesthesia. She was transferred to the fracture table. She was positioned for left hip surgery. The well leg was suspended in the well-leg [place]. The affected lower extremity was positioned in adduction, internal rotation and longitudinal traction. X- ray appeared well aligned on the AP imaging however lateral imaging demonstrated an offset anteriorly of the base of the femoral neck in the intertrochanteric region to the proximal femur. Attempted several different repositionings with no improved alignment. It appeared that there was interposed soft tissue. The patient was sterilely prepped and draped in usual fashion. A timeout was performed. An initial 4 inch incision was made proximal to the greater trochanter dissection was carried down deeply to the tip the greater trochanter. I placed a Zamorano elevator in line with the femoral head and neck and made a separate incision to allow us to place the Zamorano elevator and attempt to manipulate the base of the femoral neck and reapproximated to the shaft. This was not successful. I used a bone hook to attempt to disengage the head and neck from these shaft and potentially displace interposed tissue and this again was not successful. At this point I connected a proximal and distal incision made full-thickness skin flaps and dissected down to the fracture. There were small fragments of bone and interposed fracture hematoma. I was able to place a linear bone-holding forcep the inferior aspect of the neck fragment and compress it to the lateral aspect of the proximal femur. Fluoroscopic imaging in AP and lateral images demonstrated satisfactory reduction. Initial guidewire was plac ed through the tip of the greater trochanter which was very comminuted in nature from the patient's fracture. The guidewire was put in place and then was overdrilled with the starting drill reamer. A long guidewire was placed down the intramedullary canal of the femur and we reamed from a size 9 to a size 13 to allow for passage of the 11 x 120 degree neck angle by 180 mm length nail. Were able to insert the nail to the appropriate depth and adjusted the version trying to achieve a center center position in the femoral head. We inserted 105mm lag screw and then placed the set screw and then backed it off to allow compression the fracture was compressed. We then placed a distal interlocking screw using the set of cannulated sleeves. Fluoroscopic imaging demonstrated satisfactory placement of the implants and reduction of the fracture. I passed 2 limbs of a large Hemovac from anterior down to the neck as we made a separate incision and attempted to put pressure directly on the base of the neck for reduction. The incision was irrigated with Betadine containing saline solution followed by antibiotic daily saline solution. FloSeal was placed in the wound to achieve hemostasis. The wound was closed in layers followed by claire skin as well as the anterior incision were replaced her drain limbs 3-0 nylon sutures were placed. The incisions were injected with 20 cc of one-to-one mixture of 1% lidocaine with epinephrine half percent Marcaine. Antibiotic ointment was applied followed by sterile dressings. The Hemovac drain was hooked to the reservoir. The patient was transferred to her hospital bed. She was aroused from general anesthesia. She was taken recovery room. She tolerated surgery well. All counts are correct. Patient received 1 unit of packed red blood cells and 1 unit of fresh frozen plasma during the course of the surgical procedure.
--- NOTE | 2020-02-08 13:53 | SUR.OPER ---
1340 - Pt's updated via charge nurse.
[2020-02-08] MEDS: neomycin-poly-bacitracin oint 28 gm 1 APPLIC TOPICAL (14:50)
--- NOTE | 2020-02-08 14:54 | SUR.OPER ---
1453 - Pt's updated on surgery progress and pt status via his cell phone.
--- NOTE | 2020-02-08 15:59 | SUR.PHASEI ---
1400 BG 214 1400 PT L. PEDAL PULSE PALPATED, CAP REFILL <3 SEC, MOVEMENT TO L. FOOT, FIRST ICE APPLIED TO HIP
[2020-02-08 16:31] LABS: Glucose Point of Care 214 mg/dL (70-110)
[2020-02-08 17:05] LABS: Glucose Point of Care 228 mg/dL (70-110)
[2020-02-08] MEDS: iron polysaccharide complex 150 mg Capsule PO (17:31)
[2020-02-08] MEDS: sennosides-docusate Tablet 2 TAB PO (17:31)
[2020-02-08] MEDS: calcium carbonate 500 mg Chew Tablet 1000 MG PO (17:31)
--- NOTE | 2020-02-08 19:01 | PC.NURSE ---
150 drainage from hemovac emptied at this time.
--- NOTE | 2020-02-08 19:57 | USCV_ITS ---
Darshana Puri Age: 74 Gender: F : 1945 Exam Date: 02/08/2020 05:39 Ordering Phys: Reece Garcia MD Technologist: Skye Little [place] [facility] [place] PRE OP LT HIP FX HISTORY OF CHF BP: 132 / 70 HR: 82 Rhythm: Atrial fibrillation Technical Quality: TDS MEASUREMENTS (Male / Female) Normal Values 2D ECHO LV Diastolic Diameter PLAX 3.8 cm 4.2 - 5.9 / 3.9 - 5.3 cm LV Systolic Diameter PLAX 2.2 cm LV Chamber Size 4.2 cm IVS Diastolic Thickness 1.6 cm 0.6 - 1.0 / 0.6 - 0.9 cm IVS Systolic Thickness 2.4 cm LVPW Diastolic Thickness 1.7 cm 0.6 - 1.0 / 0.6 - 0.9 cm LVPW Systolic Thickness 1.9 cm RV Chamber Size 3.8 cm LVOT Diameter 2.1 cm LV Ejection Fraction 2D Teich 72.0 % LV Ejection Fraction MOD 2C 55.5 % LV Ejection Fraction 2C AL 55.9 % LA Diameter 5.3 cm LA Width 2.7 cm LA Height 6.3 cm RA Width 3.4 cm RA Height 6.1 cm Aorta at Sinotubular Diameter 2.8 cm M-MODE LV Diastolic Diameter MM 6.5 cm 4.2 - 5.9 / 3.9 - 5.3 cm LV Systolic Diameter MM 4.6 cm LV Ejection Fraction MM Teich 56.0 % IVS Diastolic Thickness MM 0.9 cm 0.6 - 1.0 / 0.6 - 0.9 cm IVS Systolic Thickness MM 1.9 cm LVPW Diastolic Thickness MM 1.5 cm 0.6 - 1.0 / 0.6 - 0.9 cm LVPW Systolic Thickness MM 1.4 cm RV Diastolic Diameter MM 2.4 cm Aortic Annulus Diameter 3.8 cm LA Ao Ratio MM 1.4 MV E Point Septal Separation 1.9 cm DOPPLER AV Peak Velocity 149.0 cm/s LVOT Peak Velocity 91.0 cm/s AV Area Cont Eq vti 2.7 cm squared AV Area Cont Eq pk 2.2 cm squared MV Area PHT 3.1 cm squared MV E' Velocity 15.0 cm/s Mitral E to MV E' Ratio 7.0 Mitral E to LV E' Lateral Ratio 6.5 Mitral E to LV E' Septal Ratio 7.7 TR Peak Velocity 7.0 cm/s TR Peak Gradient 0.0 mmHg TR Mean Velocity 195.8 cm/s TR Mean Gradient 20.0 mmHg TR Velocity Time Integral 67.7 cm TV Peak E Velocity 50.0 cm/s Right Atrial Pressure 3.0 mmHg Pulmonary Artery Systolic Pressu 3.0 mmHg PV Peak Velocity 67.0 cm/s RV Acceleration Time 0.2 s RV Ejection Time 0.3 s RV AcT/ET 0.6 FINDINGS Left Ventricle The ventricles not well seen. The rhythm is atrial fibrillation which decreases the sensitivity of the exam. The size and thickness of the ventricle is probably within normal limits. At least there is lower limit of normal left ventricular function. Wall motion disturbances cannot be determined. Diastolic function cannot be determined due to the rhythm. A rough estimate of the ejection fraction is 55%. Right Ventricle Normal right ventricular size and systolic function. Normal right ventricular systolic pressure. Right Atrium Moderately increased right atrial size. Left Atrium Moderately increased left atrial size. Mitral Valve Mitral valve not well visualized. Trace mitral valve regurgitation. Aortic Valve Aortic valve not well visualized. Tricuspid Valve Tricuspid valve not well visualized. [id number] tricuspid valve regurgitation. Pulmonic Valve Pulmonic valve not well visualized. Pericardium Normal pericardium without effusion. Aorta Normal ascending aorta dimension. CONCLUSIONS The ventricles not well seen. The rhythm is atrial fibrillation which decreases the sensitivity of the exam. The size and thickness of the ventricle is probably within normal limits. At least there is lower limit of normal left ventricular function. Wall motion disturbances cannot be determined. Diastolic function cannot be determined due to the rhythm. A rough estimate of the ejection fraction is 55%. Moderately increased right atrial size. Moderately increased left atrial size. Mitral valve not well visualized. Trace mitral valve regurgitation. Technically limited study. There are no prior echocardiogram studies to compare. Dr. Gigi Ortega MD (Electronically Signed) Final Date: 08 Feb 2020 08:13 S
[2020-02-08 20:26] LABS: Glucose Point of Care 205 mg/dL (70-110)
[2020-02-08] MEDS: acetaminophen 500 mg Tablet 1000 MG PO (20:35)
--- NOTE | 2020-02-08 20:49 | PC.NURSE ---
Transfusion started verified with jen cuba. pt notified to call with any changes.
[2020-02-08] MEDS: sodium chloride 0.9% (100 ml) 100 ML (23:12)
--- NOTE | 2020-02-08 23:14 | PC.NURSE ---
Transfusion complete pt without known reactions, will cont to monitor.
[2020-02-09] VITALS (9 sets, daily range): BP systolic 98–153; BP diastolic 60–79; PULSE 85–109; RESP 16–18; TEMP 36.2–37.4; O2SAT 92–98
[2020-02-09] MEDS: TRAMadol 50 mg Tablet PO (00:29)
[2020-02-09] MEDS: sodium chloride 0.9% 1,000 ML 100 ML IV ×3 (03:56→22:48)
[2020-02-09] MEDS: acetaminophen 500 mg Tablet 1000 MG PO ×3 (03:57→22:47)
[2020-02-09] MEDS: oxyCODONE 5 mg IR Tab/Cap PO ×2 (05:20→12:16)
[2020-02-09 06:34] LABS: Basophils % 0.3 %; Eosinophils # 0.1 10^3/uL (0.0-0.8); Eosinophils % 1.3 %; Hematocrit 28.5 % (37.0-47.0); Hemoglobin 8.9 g/dL (11.5-15.3); Lymphocytes % 10.1 %; Mean Corpuscular HGB Conc 31.2 g/dL (30.0-36.0); Mean Corpuscular Hemoglobin 29.7 pg (28.0-34.0); Neutrophils % 77.7 %; Nucleated Red Blood Cells % 0 %; Platelet Count 224 10^3/cmm (130-400); Red Cell Distribution Width 15.3 % (12.1-15.1); White Blood Count 10.3 10^3/uL (4.0-10.0)
[2020-02-09 06:42] LABS: INR 1.22 (0.8-1.2)
[2020-02-09 06:51] LABS: Glucose Point of Care 157 mg/dL (70-110)
[2020-02-09 06:52] LABS: Chloride 99 mmol/L (98-107); Potassium 4.3 mmol/L (3.5-5.1); Sodium 137 mmol/L (136-145)
[2020-02-09 07:34] LABS: Anion Gap 14.3 (5-19); Blood Urea Nitrogen 7 mg/dL (8-23); Calcium 8.5 mg/dL (8.5-10.5); Carbon Dioxide 28 mmol/L (22-29); Glucose 149 mg/dL (65-115); Osmolality Calculated 283 mOsm/kg (285-295)
[2020-02-09] MEDS: gabapentin 100 mg Capsule PO ×2 (08:54→18:00)
[2020-02-09] MEDS: iron polysaccharide complex 150 mg Capsule PO ×2 (08:54→18:00)
[2020-02-09] MEDS: FUROsemide 40 mg Tablet PO (08:56)
[2020-02-09] MEDS: multivitamin therapeutic Tablet 1 TAB PO (08:56)
[2020-02-09] MEDS: atorvastatin 40 mg Tablet 20 MG PO (08:56)
[2020-02-09] MEDS: digoxin 250 mcg Tablet PO (08:57)
[2020-02-09] MEDS: calcium carbonate 500 mg Chew Tablet 1000 MG PO ×2 (08:59→18:01)
[2020-02-09] MEDS: amlodipine 5 mg Tablet 2.5 MG PO (08:59)
[2020-02-09] MEDS: cholecalciferol (vitamin D3) 1,000 unit Tablet 1000 UNIT PO (09:00)
[2020-02-09] MEDS: citalopram 20 mg Tablet 40 MG PO (09:00)
[2020-02-09] MEDS: carvedilol 25 mg Tablet PO ×2 (09:01→18:00)
[2020-02-09 11:07] LABS: Glucose Point of Care 246 mg/dL (70-110)
--- NOTE | 2020-02-09 11:39 | PM.PN ---
Subjective Subjective: Interval history: 74-year-old white female postoperative day 1 status post ORIF with intramedullary nailing of comminuted and displaced left intertrochanteric hip fracture. Patient with no complaints of chest pain shortness of breath. She has no lightheadedness when she transfers. She has no complaints of palpitations or near syncope with activity. She states her left hip pain is much improved. In fact she has more complaints of discomfort from sciatica which is a chronic concern for her. Medications: Reviewed: Yes Vitals/I&O/Wt Last Vital Signs Temp 99.4 F 02/09/20 11:23 Pulse 91 02/09/20 11:23 Resp 16 02/09/20 11:23 BP 100/60 02/09/20 11:23 Pulse Ox 92 02/09/20 11:23 02/08/20 02/09/20 02/09/20 22:59 06:59 14:59 Intake Total 1557 / 2863 510 / 3373 240 / 240 Output Total 1999 / 2700 825 / 3525 Balance -443 / 163 -315 / -152 240 / 240 Weight last 48 hrs Weight 250 lb Physical Exam Narrative: EXAM NARRATIVE: 74-year-old white female in no acute distress. She is alert cooperative. Lungs are clear. Heart is regular rate. Abdomen soft/nontender. dressings are clean dry and intact. Hemovac drain with 2 limbs for wound drainage of the left hip are in place. Calves nontender Bilaterally Urinary Catheter Management^: Cates: Cath Placed During This Visit: yes Reason for Continuing Indwelling Catheter: Acute Urinary Retention or Obstruction Urinary Catheter Date of Insertion: 02/07/20 Urinary Catheter Time of Insertion: 16:30 Data : 02/10/20 04:53 02/10/20 04:53 Micro: Microbiology 02/07/20 21:01 Blood Culture - Preliminary Blood NEGATIVE TO DATE 02/07/20 20:53 Blood Culture - Preliminary Blood NEGATIVE TO DATE A&P Assessment and plan (1) Closed intertrochanteric fracture of left hip: Finish perioperative antibiotics Monitor hemoglobin hematocrit for potential need for further transfusion Mobilize Coumadin is restarted for her atrial fibrillation and chronic anticoagulation status Patient would like to be discharged home with home health depending on her postoperative progress I think this may be able to happen by Wednesday or Wednesday. Drain will be pulled tomorrow as well as dressing change. Status: Acute Qualifiers: Encounter type: subsequent encounter Fracture alignment: displaced Fracture healing: with routine healing Qualified Code(s): S72.142D - Displaced intertrochanteric fracture of left femur, subsequent encounter for closed fracture with routine healing (2) Postoperative anemia due to acute blood loss: Status: Acute Attestations Medical Necessity Statement*: Patient requires continued inpatient level care following her open external fixation of her left intertrochanteric hip fracture. Patient surgery was rather extensive. She is required 2 units of packed red blood cells transfusion following surgery may require more. She is being restarted on oral anticoagulant. Time Spent in Patient Care: less than 15 minutes (>than 50% of time spent in counselling and/or direct pt care on unit). 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
--- NOTE | 2020-02-09 13:47 | P.PN_ITS ---
Subjective Subjective: Interval history: The patient is awake and her pain is currently well controlled. The patient is sleepy. The patient states that she has more pain in her right sciatica region, than her left hip. She denies any chest pains or dyspnea. Overall she feels well. Medications: Reviewed: Yes Vitals/I&O/Wt Last Vital Signs Temp 99.4 F 02/09/20 11:23 Pulse 91 02/09/20 11:23 Resp 16 02/09/20 12:16 BP 100/60 02/09/20 11:23 Pulse Ox 92 02/09/20 11:23 02/08/20 02/09/20 02/09/20 22:59 06:59 14:59 Intake Total 1557 / 2863 560 / 3423 240 / 240 Output Total 1999 / 0 825 / 3525 1000 / 1000 Balance -443 / 163 -265 / -102 -760 / -760 Physical Exam Narrative: EXAM NARRATIVE: General: Alert and oriented x3 Cardiac: Regular rate with irregularly irregular rhythm. No significant murmurs appreciated. Lungs: Decreased air entry bilaterally with occasional wheezes, without crackles or rhonchi. Abdomen: Soft, nontender, no hepatosplenomegaly noted Extremities: Trace edema in the bilateral lower extremities. Left hip with drain in place. Urinary Catheter Management^: Cates: Cath Placed During This Visit: yes, but has since been removed by the nurse Reason for Continuing Indwelling Catheter: Decision to DC Catheter Urinary Catheter Date of Insertion: 02/07/20 Urinary Catheter Time of Insertion: 16:30 Date Urinary Catheter Removed: 02/09/20 Time Urinary Catheter Discontinued: 13:00 Data : 02/09/20 06:18 02/09/20 06:18 Micro: Microbiology 02/07/20 16:24 Urine Culture - Preliminary Urine,Clean Catch Gram Negative Rods 02/07/20 21:01 Blood Culture - Preliminary Blood NEGATIVE TO DATE 02/07/20 20:53 Blood Culture - Preliminary Blood NEGATIVE TO DATE A&P Assessment and plan (1) Congestive heart failure: Status: Acute (2) Atrial fibrillation: Status: Acute (3) Diabetes mellitus: Status: Acute (4) Closed intertrochanteric fracture of left hip: Status: Acute Qualifiers: Encounter type: subsequent encounter Fracture alignment: displaced Fracture healing: with routine healing Qualified Code(s): S72.142D - Displaced intertrochanteric fracture of left femur, subsequent encounter for closed fracture with routine healing (5) Hypertension: Status: Acute Additional A&P Information 1. Acute fracture of the left hip -the patient had a traumatic fracture of the left hip. She had an open reduction with internal fixation of the left hip done on 02/08/[address] Russell. The patient is recovering from this well. Continue with recommendations for this per Dr. Russell. 2. Congestive heart failure -the patient had an ejection fraction of 35% on echocardiogram done in 2007. Her follow-up echocardiogram on 02/08/2020 showed an estimated ejection fraction of 55%, however was difficult to give a good estimation secondary to atrial fibrillation. Overall the patient seems to be stable from a cardiac standpoint. We will continue to monitor this. 3. Atrial fibrillation -the patient is currently rate controlled with her A. fib. The patient has been on Coumadin for quite some time for this and I discussed the option of switching her to Eliquis today and she is in agreement. We will start her on 2.5 mg twice a day for prophylaxis after surgery and plan to increase to 5 mg twice a day for A. fib prophylaxis once her bleeding risk is decreasing. 4. Diabetes mellitus -sliding scale while the patient is in the hospital. Current A1c is 7.0. 5. Hypertension -the patient's blood pressure is on the low side. I will hold the amlodipine for now. 6. Urinary tract infection -patient has a UTI and was given 2 g of Rocephin last night. We will continue with this every 24 hours. Urine culture pending. 7. Prophylaxis -SCDs and Eliquis. Attestations Medical Necessity Statement*: Patient continues to need inpatient care as she recovers after hip surgery. She will likely be her for the next 2 to 3 days. 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
[2020-02-09 17:07] LABS: Glucose Point of Care 178 mg/dL (70-110)
[2020-02-09] MEDS: apixaban 5 mg Tablet 2.5 MG PO (18:00)
[2020-02-09] MEDS: sennosides-docusate Tablet 2 TAB PO (18:03)
[2020-02-09 21:33] LABS: Glucose Point of Care 169 mg/dL (70-110)
[2020-02-10] VITALS (19 sets, daily range): BP systolic 93–127; BP diastolic 59–80; PULSE 72–97; RESP 15–22; TEMP 36.6–37.3; O2SAT 90–98
[2020-02-10] MEDS: acetaminophen 500 mg Tablet 1000 MG PO ×3 (05:28→19:59)
[2020-02-10 06:00] LABS: Basophils % 0.2 %; Eosinophils # 0.1 10^3/uL (0.0-0.8); Eosinophils % 1.4 %; Hematocrit 26.7 % (37.0-47.0); Lymphocytes # 0.9 10^3/uL (0.8-4.8); Lymphocytes % 9.3 %; Mean Corpuscular Hemoglobin 29.1 pg (28.0-34.0); Mean Corpuscular Volume 97.1 fL (81-99); Mean Platelet Volume 10.1 fL (7.4-10.4); Monocytes # 1.3 10^3/uL (0.2-0.9); Monocytes % 12.6 %; Neutrophils # 7.6 10^3/uL (1.8-7.7); Neutrophils % 75.9 %; Nucleated Red Blood Cells % 0 %; Platelet Count 217 10^3/cmm (130-400); Red Blood Count 2.75 10^6/uL (4.1-5.3); Red Cell Distribution Width 14.8 % (12.1-15.1)
[2020-02-10 06:21] LABS: Alanine Aminotransferase 7 U/L (0-33); Alkaline Phosphatase 54 IU/L (35-105); Anion Gap 15.2 (5-19); Aspartate Amino Transferase 19 U/L (0-32); Blood Urea Nitrogen 9 mg/dL (8-23); Calcium 8.6 mg/dL (8.5-10.5); Carbon Dioxide 27 mmol/L (22-29); Chloride 100 mmol/L (98-107); Globulin 3.2 g/dL (1.3-4.6); Glucose 151 mg/dL (65-115); Osmolality Calculated 285 mOsm/kg (285-295); Potassium 4.2 mmol/L (3.5-5.1); Sodium 138 mmol/L (136-145); Total Bilirubin 0.4 mg/dL (0.15-1.2); Total Protein 6.2 g/dL (6.6-8.7)
[2020-02-10 06:50] LABS: Glucose Point of Care 166 mg/dL (70-110)
--- NOTE | 2020-02-10 08:56 | PC.NURSE ---
First unit of blood started at this time. Patient is tolerating well. Will remain at bedside to continue to monitor for the next 30 mins.
[2020-02-10] MEDS: sodium chloride 0.9% 1,000 ML 100 ML IV (09:09)
[2020-02-10] MEDS: iron polysaccharide complex 150 mg Capsule PO ×2 (09:09→18:07)
[2020-02-10] MEDS: multivitamin therapeutic Tablet 1 TAB PO (09:10)
[2020-02-10] MEDS: gabapentin 100 mg Capsule PO ×2 (09:10→18:07)
[2020-02-10] MEDS: citalopram 20 mg Tablet 40 MG PO (09:11)
[2020-02-10] MEDS: carvedilol 25 mg Tablet PO ×2 (09:12→18:07)
[2020-02-10] MEDS: digoxin 250 mcg Tablet PO (09:12)
[2020-02-10] MEDS: calcium carbonate 500 mg Chew Tablet 1000 MG PO (09:12)
[2020-02-10] MEDS: cholecalciferol (vitamin D3) 1,000 unit Tablet 1000 UNIT PO (09:12)
[2020-02-10] MEDS: atorvastatin 40 mg Tablet 20 MG PO (09:13)
--- NOTE | 2020-02-10 09:30 | PC.NURSE ---
First unit of blood continues to infuse without problem. Patient tolerating well. No obvious signs of a reaction.
[2020-02-10] MEDS: apixaban 5 mg Tablet 2.5 MG PO ×2 (09:56→18:03)
[2020-02-10 10:52] LABS: Glucose Point of Care 189 mg/dL (70-110)
--- NOTE | 2020-02-10 11:36 | PC.SOCIAL ---
*IMM* Patient received (updated) Important Message from Medicare. patient signed, original in chart, copy gave to the patient
[2020-02-10] MEDS: FUROsemide 10 mg/mL SDV 4mL 40 MG IVP (12:01)
--- NOTE | 2020-02-10 12:20 | PC.NURSE ---
Second unit of blood transfusing at this time. No obvious sign of reaction at this time. Patient up to recliner by PT.
--- NOTE | 2020-02-10 14:44 | P.PN_ITS ---
Subjective Subjective: Interval history: Darshana reports she is doing well. Minimal pain. No other specific complaints currently. Medications: Reviewed: Yes Vitals/I&O/Wt Last Vital Signs Temp 99.0 F 02/10/20 12:20 Pulse 81 02/10/20 12:20 Resp 16 02/10/20 12:20 BP 106/61 02/10/20 12:20 Pulse Ox 97 02/10/20 11:35 02/09/20 02/10/20 02/10/20 22:59 06:59 14:59 Intake Total 711.667 / 1951.667 0 / 4352.805 8349 / 1240 Output Total 0 / 1000 315 / 1315 600 / 600 Balance 711.667 / 951.667 -315 / 636.667 640 / 640 Physical Exam Narrative: EXAM NARRATIVE: General exam no apparent distress Cardiovascular regular rate and rhythm without murmur Lungs clear Abdomen soft, positive bowel sounds Surgical site clean and dry Extremities no cyanosis clubbing or edema Urinary Catheter Management^: Cates: Cath Placed During This Visit: yes, but has since been removed by the nurse Reason for Continuing Indwelling Catheter: Decision to DC Catheter Urinary Catheter Date of Insertion: 02/07/20 Urinary Catheter Time of Insertion: 16:30 Date Urinary Catheter Removed: 02/09/20 Time Urinary Catheter Discontinued: 13:00 Data : 02/10/20 04:53 02/10/20 04:53 Micro: Microbiology 02/07/20 16:24 Urine Culture - Final Urine,Clean Catch Klebsiella pneumoniae A&P Assessment and plan (1) Congestive heart failure: Compensated Last ejection fraction 55%2019 Status: Acute (2) Atrial fibrillation: Rate controlled Plan to discharge on 5 mg of Eliquis twice daily after risk of bleeding is less Status: Acute (3) Diabetes mellitus: Sliding scale insulin Status: Acute (4) Closed intertrochanteric fracture of left hip: Postoperative day #2 She appears to be progressing well She would like to be discharged home. Perhaps in the next 1 to 2 days depending upon progress with therapy Status: Acute Qualifiers: Encounter type: subsequent encounter Fracture alignment: displaced Fracture healing: with routine healing Qualified Code(s): S72.142D - Displaced intertrochanteric fracture of left femur, subsequent encounter for closed fracture with routine healing (5) Hypertension: Reduce lisinopril secondary to borderline hypotension. Status: Acute Additional A&P Information Acute postoperative blood loss anemia. She is receiving 1 unit of packed red blood cells currently by orthopedics for hemoglobin of 8. She has received 2 units previously. Repeat hemoglobin tomorrow. UTI, continue Rocephin. Urine grew Klebsiella Eliquis for DVT prophylaxis. Full code Attestations Medical Necessity Statement*: Specialization for close monitoring status post ORIF, left hip. Coding Level of Care Code Acute Consultant Intern for [facility] Diagnoses Congestive heart failure I50.9 Atrial fibrillation I48.91 Diabetes mellitus E11.9 Closed intertrochanteric fracture of left hip S72.142D Encounter type: subsequent encounter Fracture alignment: displaced Fracture healing: with routine healing Hypertension I10
[2020-02-10 16:12] LABS: Glucose Point of Care 152 mg/dL (70-110)
[2020-02-10] MEDS: oxyCODONE 5 mg IR Tab/Cap PO (18:14)
--- NOTE | 2020-02-10 19:40 | P.PN_ITS ---
Subjective Subjective: Interval history: 74-year-old white female postoperative day 2 status post open reduction internal fixation left intertrochanteric hip fracture. Patient received 1 unit of packed red blood cells during the surgical procedure and one unit of packed red blood cells the evening of surgery because of low or soft blood pressure. Despite her low hemoglobin she's been minimally symptomatic. She has no complaints of left hip pain her left-sided sciatica is improving. Physical therapy reports that she's having difficulty with ambulation and transfer. Notably that she would be safe to go home in the near future because of her difficulties with requiring significant assistance with transfer. She has no complaints of chest pain and lightheadedness palpitations cough. She has no complaints of nausea, vomiting or abdominal discomfort. Vitals/I&O/Wt Last Vital Signs Temp 97.9 F 02/10/20 19:26 Pulse 86 02/10/20 19:26 Resp 17 02/10/20 19:26 BP 127/80 02/10/20 19: Pulse Ox 90 02/10/20 19:26 02/10/20 02/10/20 02/10/20 06:59 14:59 22:59 Intake Total 0 / 1201.971 0729 / 1240 590 / 1830 Output Total 315 / 1315 600 / 600 600 / 1200 Balance -315 / 636.667 640 / 640 -10 / 630 Physical Exam Narrative: EXAM NARRATIVE: 74 female no distress. She is alert and cooperative. Lungs are clear heart regular rate rhythm at a soft nontender her dressings are removed her incision is intact with no evidence of erythema no active bleeding. Dressing is changed her drain is removed. She has no calf tenderness bilaterally Urinary Catheter Management^: Cates: Cath Placed During This Visit: yes, but has since been removed by the nurse Reason for Continuing Indwelling Catheter: Decision to DC Catheter Urinary Catheter Date of Insertion: 02/07/20 Urinary Catheter Time of Insertion: 16:30 Date Urinary Catheter Removed: 02/09/20 Time Urinary Catheter Discontinued: 13:00 Data : 02/10/20 04:53 02/10/20 04:53 Micro: Microbiology 02/07/20 16:24 Urine Culture - Final Urine,Clean Catch Klebsiella pneumoniae A&P Assessment and plan (1) Closed intertrochanteric fracture of left hip: patient's hemoglobin down to 8 g today and I will transfuse 2 units packed red blood cells with Lasix in between units and recheck hemoglobin hematocrit tomorrow. She's been changed from Coumadin to Eliquis at a decreased dose by the medical team. Will work on aggressive physical therapy. Informed the patient she is unable to do well with transfers she may require a brief stay at a rehabilitation. She is agreeable with this plan. Patient is weightbearing as tolerated on her postoperative left lower extremity. After discharge her plan will be to see her in the office in approximately 2 weeks on 02/23/2020 for staple removal application of Steri-Strips and follow-up x-rays. Status: Acute Qualifiers: Encounter type: subsequent encounter Fracture alignment: displaced Fracture healing: with routine healing Qualified Code(s): S72.142D - Displaced intertrochanteric fracture of left femur, subsequent encounter for closed fracture with routine healing (2) Postoperative anemia due to acute blood loss: Status: Acute Attestations Medical Necessity Statement*: patient requires continued inpatient level care. Working in physical therapy. Patient being transfused today. May require arrangements for transfer to skilled facility when medically stable. Time Spent in Patient Care: 16 - 35 minutes (>than 50% of time spent in counselling and/or direct pt care on unit) . 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
[2020-02-10 21:51] LABS: Glucose Point of Care 176 mg/dL (70-110)
[2020-02-11] VITALS (7 sets, daily range): BP systolic 90–127; BP diastolic 58–77; PULSE 75–88; RESP 17–20; TEMP 36.3–36.7; O2SAT 90–97
[2020-02-11] MEDS: sodium chloride 0.9% 1,000 ML 100 ML IV (00:54)
[2020-02-11] MEDS: acetaminophen 500 mg Tablet 1000 MG PO ×2 (04:34→12:18)
[2020-02-11 05:50] LABS: Basophils % 0.3 %; Eosinophils # 0.2 10^3/uL (0.0-0.8); Eosinophils % 2.9 %; Hematocrit 30.3 % (37.0-47.0); Hemoglobin 9.1 g/dL (11.5-15.3); Lymphocytes # 0.8 10^3/uL (0.8-4.8); Lymphocytes % 10.2 %; Mean Corpuscular Hemoglobin 28.3 pg (28.0-34.0); Mean Corpuscular Volume 94.1 fL (81-99); Mean Platelet Volume 9.5 fL (7.4-10.4); Monocytes # 0.9 10^3/uL (0.2-0.9); Monocytes % 11.8 %; Neutrophils # 5.8 10^3/uL (1.8-7.7); Neutrophils % 74.2 %; Nucleated Red Blood Cells % 0 %; Platelet Count 230 10^3/cmm (130-400); Red Blood Count 3.22 10^6/uL (4.1-5.3); Red Cell Distribution Width 15.6 % (12.1-15.1); White Blood Count 7.9 10^3/uL (4.0-10.0)
[2020-02-11 07:12] LABS: Glucose Point of Care 175 mg/dL (70-110)
[2020-02-11] MEDS: cholecalciferol (vitamin D3) 1,000 unit Tablet 1000 UNIT PO (08:51)
[2020-02-11] MEDS: calcium carbonate 500 mg Chew Tablet 1000 MG PO (08:51)
[2020-02-11] MEDS: gabapentin 100 mg Capsule PO (08:51)
[2020-02-11] MEDS: carvedilol 25 mg Tablet PO (08:51)
[2020-02-11] MEDS: multivitamin therapeutic Tablet 1 TAB PO (08:51)
[2020-02-11] MEDS: digoxin 250 mcg Tablet PO (08:52)
[2020-02-11] MEDS: sennosides-docusate Tablet 2 TAB PO (08:52)
[2020-02-11] MEDS: iron polysaccharide complex 150 mg Capsule PO (08:53)
[2020-02-11] MEDS: atorvastatin 40 mg Tablet 20 MG PO (08:53)
[2020-02-11] MEDS: apixaban 5 mg Tablet 2.5 MG PO (08:53)
[2020-02-11] MEDS: FUROsemide 40 mg Tablet PO (08:53)
[2020-02-11] MEDS: lisinopril 10 mg Tablet PO (08:53)
[2020-02-11] MEDS: citalopram 20 mg Tablet 40 MG PO (08:54)
[2020-02-11] MEDS: oxyCODONE 5 mg IR Tab/Cap PO ×2 (08:54→16:08)
[2020-02-11] MEDS: mupirocin oint 22 gm 1 APPLIC NASAL (09:00)
[2020-02-11 11:29] LABS: Glucose Point of Care 179 mg/dL (70-110)
--- NOTE | 2020-02-11 13:00 | P.PN_ITS ---
Subjective Subjective: Interval history: 74-year-old white female who is in good spirits today. She is having no complaints of postoperative left hip pain at all. Her sciatica complaints appear to be improving as well. She was able to ambulate with her up walker approximately 30feet. She would like to go home. Vitals/I&O/Wt Last Vital Signs Temp 98.1 F 02/11/20 11:10 Pulse 75 02/11/20 11:10 Resp 18 02/11/20 11:10 BP 107/66 02/11/20 11:10 Pulse Ox 90 02/11/20 11:10 02/10/20 02/11/20 02/11/20 22:59 06:59 14:59 Intake Total 1590 / 2830 240 / 3070 360 / 360 Output Total 600 / 1200 1200 / 2400 Balance 990 / 1630 -960 / 670 360 / 360 Physical Exam Narrative: EXAM NARRATIVE: 74-year-old white female in no acute distress. She is alert and cooperative. Dressing left thigh intact. She has no calf tenderness bilaterally. Urinary Catheter Management^: Cates: Cath Placed During This Visit: yes, but has since been removed by the nurse Reason for Continuing Indwelling Catheter: Decision to DC Catheter Urinary Catheter Date of Insertion: 02/07/20 Urinary Catheter Time of Insertion: 16:30 Date Urinary Catheter Removed: 02/09/20 Time Urinary Catheter Discontinued: 13:00 Data : 02/11/20 05:34 02/10/20 04:53 Micro: Microbiology 02/07/20 16:24 Urine Culture - Final Urine,Clean Catch Klebsiella pneumoniae A&P Assessment and plan (1) Closed intertrochanteric fracture of left hip: Status post open external fixation with intramedullary nail date of surgery 02/08/2020 Status: Acute Qualifiers: Encounter type: subsequent encounter Fracture alignment: displaced Fracture healing: with routine healing Qualified Code(s): S72.142D - Displaced intertrochanteric fracture of left femur, subsequent encounter for closed fracture with routine healing (2) Atrial fibrillation: Status: Acute (3) Congestive heart failure: Status: Acute (4) Sciatica: Improved during this hospitalization Status: Acute (5) Postoperative anemia due to acute blood loss: Improved following transfusion of blood products Status: Acute (6) Hypertension: Status: Acute Attestations Medical Necessity Statement*: Per patient request she would like to go home today we will set up home health for her with follow-up in the orthopedic clinic in 2 weeks follow-up per recommendations of medical team Time Spent in Patient Care: 16 - 35 minutes (>than 50% of time spent in counselling and/or direct pt care on unit) . 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
--- NOTE | 2020-02-11 13:30 | PM.DCS ---
Discharge Providers Date of Admission: 02/07/20 14:47 Date of Discharge: February 11, 2020 Attending Provider at Admission: Yuni Weems MD Attending Provider at Discharge: Paul Mitchell MD Primary Care Provider: Reece Garcia MD Diagnoses at Discharge Discharge Diagnosis (1) Closed intertrochanteric fracture of left hip: Status: Acute Problem details: Status post repair Qualifiers: Encounter type: subsequent encounter Fracture alignment: displaced Fracture healing: with routine healing Qualified Code(s): S72.142D - Displaced intertrochanteric fracture of left femur, subsequent encounter for closed fracture with routine healing (2) Atrial fibrillation: Status: Acute Problem details: Rate controlled (3) Congestive heart failure: Status: Acute (4) Sciatica: Status: Acute (5) Postoperative anemia due to acute blood loss: Status: Acute (6) Hypertension: Status: Acute Reason for Visit Reason for Visit: Reason For Visit: fall Hospital Course Hospital Course: Darshana is a 74-year-old white female who presented following a fall, and sustained a hip fracture, left side. Orthopedics was consulted. Urinary tract infection was also noted. She was placed on Rocephin for this. ORIF left hip was performed by orthopedics on February 07. She received 2 units of blood during or following the procedure. She had previously been on Coumadin for atrial fibrillation prior to the surgery. Postoperatively she did well and recovered with minimal discomfort. Urine culture ultimately grew Klebsiella and she will discharge on 5 more days of cefdinir. Coumadin therapy was changed to Eliquis which she will discharge on. She did receive 1 more unit of blood during her hospital stay, for hemoglobin drifting down to approximately 8. She will have home health and home physical therapy and follow-up with her primary care provider as well as orthopedics. She had no evidence of any active bleeding following the procedure. Physical Exam Narrative: EXAM NARRATIVE: General exam is no apparent distress Cardiovascular irregular, irregular Lungs clear Abdomen is soft with positive bowel sounds Left hip with dressing clean and dry. No significant edema, cap refill brisk Urinary Catheter Management^: Cates: Cath Placed During This Visit: yes, but has since been removed by the nurse Reason for Continuing Indwelling Catheter: Decision to DC Catheter Urinary Catheter Date of Insertion: 02/07/20 Urinary Catheter Time of Insertion: 16:30 Date Urinary Catheter Removed: 05/15/20 Time Urinary Catheter Discontinued: 13:00 Discharge Data Data Completed and Pending: Completed Studies During Hospitalization Category Date Time Status XR chest 1V alexy ble 23220 Stat Exams 02/07/20 14:06 Completed XR hip LT 2-3V wo /w pel* [id number] Rout ine Exams 02/08/20 Completed XR hip LT 2-3V wo /w pel* [id number] Stat Exams 02/07/20 13:01 Completed CV echo complete* [id number] Routine Ultrasound 02/08/20 19:57 Completed Pending at discharge Category Date Time Status ABO/Rh Type Routi ne Lab 02/08/20 04:00 Results Blood Culture Sta t Lab 02/07/20 21:01 Results Complete Crossmat ch Routine Lab 02/08/20 04:00 Results Frozem Plasma FZ <24 1st Cont Routi ne Lab 02/08/20 04:00 Results Leukocyte Reduced RBC Routine Lab 02/08/20 04:00 Results Retype for XM Rou alfa Lab 02/07/20 17:29 Results Type and Screen R outine Lab 02/08/20 04:00 Results Labs from last 24 hours 02/11/20 02/11/20 02/11/20 11:09 06:42 05:34 WBC 7.9 RBC 3.22 L Hgb 9.1 L Hct 30.3 L MCV 94.1 MCH 28.3 MCHC 30.0 RDW 15.6 H Plt Count 230 MPV 9.5 Neut % (Auto) 74.2 Lymph % (Auto) 10.2 Kinney % (Auto) 11.8 Eos % (Auto) 2.9 Baso % (Auto) 0.3 Neut # (Auto) 5.8 Lymph # (Auto) 0.8 Kinney # (Auto) 0.9 Eos # (Auto) 0.2 Baso # (Auto) 0.0 Nucleated RBC % (a uto) 0 Nucleated RBCs # 0.0 POC Glucose 179 175 Crossmatch 02/10/20 02/10/20 02/07/20 21:47 16:00 17:29 WBC RBC Hgb Hct MCV MCH MCHC RDW Plt Count MPV Neut % (Auto) Lymph % (Auto) Kinney % (Auto) Eos % (Auto) Baso % (Auto) Neut # (Auto) Lymph # (Auto) Kinney # (Auto) Eos # (Auto) Baso # (Auto) Nucleated RBC % (a uto) Nucleated RBCs # POC Glucose 176 152 Crossmatch See Detail Vitals: Last Vital Signs Temp 98.1 F 02/11/20 11:10 Pulse 75 02/11/20 11:10 Resp 18 02/11/20 11:10 BP 107/66 02/11/20 11:10 Pulse Ox 90 02/11/20 11:10 Discharge Plan Discharge Patient Disposition: Home Health Service Condition: Stable Prescriptions: New hydrocodone-acetaminophen 5-325 mg tablet 1 tab PO Q4H PRN (Reason: pain) Qty: 40 RF: 0 cefdinir 300 mg capsule 300 mg PO Q12H 5 Days Qty: 10 RF: 0 Eliquis 5 mg tablet 5 mg PO BID Qty: 60 RF: 0 Continued furosemide 40 mg tablet 40 mg PO DAILY RF: 0 metformin 500 mg tablet See Rx Instructions .ROUTE .COMPLEX RF: 0 carvedilol 25 mg tablet 25 mg PO BID RF: 0 Tylenol 325 mg Tablet 325 mg PO QID PRN (Reason: Pain) RF: 0 citalopram 40 mg tablet 40 mg PO DAILY RF: 0 lisinopril 20 mg tablet 20 mg PO DAILY RF: 0 amlodipine 2.5 mg tablet 2.5 mg PO DAILY RF: 0 digoxin 250 mcg (0.25 mg) tablet 0.25 mcg PO DAILY RF: 0 simvastatin 40 mg tablet 40 mg PO DAILY RF: 0 potassium chloride 20 mEq tablet,ER particles/crystals 20 meq PO DAILY RF: 0 ferrous sulfate 325 mg (65 mg iron) tablet 65 mg PO BID RF: 0 gabapentin 100 mg capsule 100 mg PO BID RF: 0 Discontinued warfarin 5 mg tablet See Rx Instructions .ROUTE .COMPLEX RF: 0 Discharge Orders: Discharge Order (Routine); Ordered 02/11/20 Ordered By: Mason Russell Referrals: [facility] [Outside] (Call [facility] Wednesdayand let them know that you have been discharge home and can continue services.) Mason Russell DO [Physician] - 02/23/20 (Call [phone] to set up precise appointment time for February 23, 2020. Crystal to be removed at that time. Follow-up x-rays of the left hip to be performed at that time as well.) Reece Garcia MD [Primary Care Provider] - 4-7 days (Call Wednesday and make a hospital follow up appointment in 4-[address] Garcia.) Discharge Diet: Diabetic Discharge Activity: Increase activity as tolerated and Use walker/crutches as instructed Activity Restrictions/Additional Instructions: Weightbearing as tolerated left lower extremity May shower if he can coordinate with the visiting nurse to do dressing change after showering may get soap and water on the incision line. 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
== END 2020-02-11 16:45 | disposition home health service (06) | DRG 481 ==
LOC: ER 18:11 → MEDSURG 18:14
PROVIDERS: Family Medicine; Orthopaedic Surgery; Admitting Provider Hospitalist; PCP Family Medicine; Visit Provider Internal Medicine
PROC: (CPT 27245; principal; 2020-02-08 12:30)
DX: S72.142A Displaced intertrochanteric fracture of left femur, initial encounter for closed fracture (principal); N39.0 Urinary tract infection, site not specified; D62 Acute posthemorrhagic anemia; W01.0XXA Fall on same level from slipping, tripping and stumbling without subsequent striking against object, initial encounter; M16.12 Unilateral primary osteoarthritis, left hip; I48.91 Unspecified atrial fibrillation; I50.9 Heart failure, unspecified; I11.0 Hypertensive heart disease with heart failure; E11.9 Type 2 diabetes mellitus without complications; M54.30 Sciatica, unspecified side; Z87.891 Personal history of nicotine dependence; Z79.01 Long term (current) use of anticoagulants; E78.5 Hyperlipidemia, unspecified; G89.29 Other chronic pain; M54.5 Low back pain; B96.1 Klebsiella pneumoniae [K. pneumoniae] as the cause of diseases classified elsewhere; Z79.84 Long term (current) use of oral hypoglycemic drugs
CPT/HCPCS: 12345; 36415; 36416; 36430; 51702; 71045; 73502; 76000; 80048; 80053; 81001; 82962; 83036; 83735; 84100; 85025; 85610; 86141; 86850; 86900; 86920; 86927; 87040; 87077; 87086; 87186; 93005; 93306; 96365; 96372; 96374; 96375; 97110; 97116; 97161; 97167; 97530; 97535; 99283; C1713; J0131; J0690; J0696; J1580; J1815; J1940; J2001; J2270; J2370; J2405; J2710; J3010; J3370; J3430; J3490; J7030; J7050; P9016; P9017

== ENCOUNTER → 2020-02-23 09:05 | Outpatient (BNVA) | payer MEDICARE, OTHER, SELFPAY | PROVIDERS: PCP Family Medicine; Visit Provider Orthopaedic Surgery | DX: M25.551 Pain in right hip (principal); Z48.89 Encounter for other specified surgical aftercare; Z87.81 Personal history of (healed) traumatic fracture | CPT/HCPCS: 73502 ==

== ENCOUNTER → 2020-03-22 11:20 | Outpatient (BNVA) | payer MEDICARE, OTHER, SELFPAY | PROVIDERS: PCP Family Medicine; Visit Provider Orthopaedic Surgery | DX: T84.125A Displacement of internal fixation device of left femur, initial encounter (principal); X58.XXXA Exposure to other specified factors, initial encounter | CPT/HCPCS: 73502 ==

== ENCOUNTER 2020-03-26 15:57 | Inpatient (IN) | payer MEDICARE, OTHER, SELFPAY ==
[2020-03-22 13:38] VITALS: BMI 38.5
[2020-03-22 14:19] LABS: Basophils % 0.3 %; Eosinophils # 0.1 10^3/uL (0.0-0.8); Eosinophils % 1.3 %; Hematocrit 43.7 % (37.0-47.0); Hemoglobin 12.7 g/dL (11.5-15.3); Lymphocytes # 1.2 10^3/uL (0.8-4.8); Lymphocytes % 13.3 %; Mean Corpuscular HGB Conc 29.1 g/dL (30.0-36.0); Mean Corpuscular Hemoglobin 27.9 pg (28.0-34.0); Monocytes # 0.6 10^3/uL (0.2-0.9); Monocytes % 6.5 %; Neutrophils # 7.2 10^3/uL (1.8-7.7); Neutrophils % 78.3 %; Nucleated Red Blood Cells % 0 %; Platelet Count 417 10^3/cmm (130-400); Red Blood Count 4.55 10^6/uL (4.1-5.3); Red Cell Distribution Width 14.9 % (12.1-15.1); White Blood Count 9.1 10^3/uL (4.0-10.0)
[2020-03-22 14:24] LABS: INR 1.33 (0.8-1.2)
[2020-03-22 14:29] LABS: Alanine Aminotransferase 12 U/L (0-33); Albumin Level 3.7 g/dL (3.5-5.2); Alkaline Phosphatase 138 IU/L (35-105); Anion Gap 14.7 (5-19); Aspartate Amino Transferase 13 U/L (0-32); Blood Urea Nitrogen 16 mg/dL (8-23); Calcium 9.9 mg/dL (8.5-10.5); Carbon Dioxide 28 mmol/L (22-29); Chloride 97 mmol/L (98-107); Creatinine Clr Calc Pharmacy 98.4197; Globulin 3.6 g/dL (1.3-4.6); Glucose 131 mg/dL (65-115); Osmolality Calculated 278 mOsm/kg (285-295); Potassium 4.7 mmol/L (3.5-5.1); Sodium 135 mmol/L (136-145); Total Bilirubin 0.4 mg/dL (0.15-1.2); Total Protein 7.3 g/dL (6.6-8.7)
[2020-03-26] VITALS (15 sets, daily range): BP systolic 81–118; BP diastolic 60–76; PULSE 72–114; RESP 18–25; TEMP 36.2–37.2; O2SAT 89–98
--- NOTE | 2020-03-26 | XR_ITS ---
WS: [id number] INTRAOPERATIVE TECHNIQUE: 4 Spot fluoroscopic images for intraoperative purposes. FLUOROSCOPY TIME: 47.5 seconds CLINICAL INFORMATION: ORIF LEFT HIP COMPARISON: None. FINDINGS: Left JILLIAN with intramedullary stefania. Hardware appears in good position. Acetabular fixation screws. XR/XR hip LT 1V wo/w pel [id number] IMPRESSION: Images obtained for intraoperative purposes.
--- NOTE | 2020-03-26 | SCC_ITS ---
Procedure Done: removal of retained deep hardware left hip left total hip arthroplasty using revision stem for femur 57.4 seconds of fluoroscopic guidance, for a cumulative dose of 14.33 mGy, was provided to Dr. Russell by the radiology department. C-arm images of the LEFT hip were saved for the patient's permanent record. ISSAC
--- NOTE | 2020-03-26 07:14 | ANES.PREANE2 ---
Pre-Anesthetic Assessment Pre-Anesthetic Assessment: Height/Weight: Height 1.88 m Weight 136.078 kg Temp Pulse Resp BP Pulse Ox 97.1 F L 96 18 118/73 91 03/26/20 06:57 03/26/20 06:57 03/26/20 06:57 03/26/20 06:57 03/26/20 06:57 Preop Diagnosis: orthopedic implant complication left hip Proposed Procedure: Operation Date: 03/26/20 07:00 Proposed Procedures p Hardware Removal Hip Screw 82921 20704 lateral position(Left) - Mason Russell DO s Total Hip Arthroplasty(Left) - Mason Russell DO Last intake: Intake Last Liquid Date 03/25/20 Last Liquid Time 17:30 Last Solid Date 03/25/20 Last Solid Time 17:30 Social: Comment: former smoker Airway: Cervical ROM: WNL MP: 2 Dentition: False Pulmonary: Pulmonary: PAGE CV/HEM: CV/HEM: AIDS, CHF and HTN Metabolic: Metabolic: DM, Hyperlipidemia and Morbid obesity Musc/skel: Musc/skel: OA/DJD Neuropsych: Neuropsych: Anxiety Anesthetic Plan: Anesthesia: General Risk of > 500 ml blood loss (7ml/kg in children): Yes, adequate IV access and fluids planned PFSH Anesthesia PFSH: Medical History (Updated 03/24/20 @ 15:14 by Mason Russell DO) Atrial fibrillation Rate controlled Branchial cleft cyst Complication involving orthopedic internal fixation device Congestive heart failure Diabetes mellitus History of fracture of left hip Sciatica Surgical History H/O section H/O vein stripping History of appendectomy Family History Father Cancer Colon cancer - of this. Mother Broken hip Social History Smoking and tobacco status: former smoker Data Anesthesia CBC & Chem 7: 03/22/20 13:24 03/22/20 13:24 Cardiac Studies: No Data to Display
[2020-03-26 07:22] LABS: Glucose Point of Care 158 mg/dL (70-110)
[2020-03-26] MEDS: sodium chloride 0.9% 1,000 ML 30 ML IV (07:25)
--- NOTE | 2020-03-26 08:46 | W.PM.OPSUD ---
Surgery/Procedure H&P Update DATE OF PROCEDURE: March 26, 2020 DATE H&P PERFORMED: 03/22/20 H&P UPDATE INFORMATION: I have reviewed H&P completed within last 30 days and I have examined patient prior to procedure PREOP DIAGNOSIS: orthopedic implant complication left hip PRIMARY INDICATION FOR PROCEDURE: as above PLANNED PROCEDURE: Operation Date: 03/26/20 07:00 Proposed Procedures p Hardware Removal Hip Screw 82974 18400 lateral position(Left) - DO mirna Romero Total Hip Arthroplasty(Left) - Mason Russell DO
--- NOTE | 2020-03-26 08:47 | PM.OP ---
Operative Report Date of procedure: March 26, 2020 Pre-op Diagnosis: orthopedic implant complication left hip Post-op diagnosis: same Procedure Done: removal of retained deep hardware left hip left total hip arthroplasty using revision stem for femur Implants: Trident II Tritanium clusterhole 58 mm Alpha code F #2-6.5 mm x 30 mm low-profile hex screws Trident X3 10? polyethylene insert 36 mm inner diameter alpha code F oriental orthodox modular hip system stem length 195 mm distal diameter 16mm bowed stem Zoroastrianism modular hip size 23 mm height +10 mm V 40 taper L fit anatomic V 40 fem 36 mm diameter head -5 mm offset Specimens removed/disposition: gamma nail, lag screw, distal interlocking screw Femoral head and neck Pathology: portions of femoral head and neck submitted for pathology Surgeon: Mason Russell Anesthesia: General Estimated blood loss (mL): 1,500 IV fluids (mL): 1,500 (+ 700 mL (2 units of PRBCs)) Urine output (mL): 300 Findings: cut out of gamma nail lag screw from left femoral head and neck Condition: stable Brief History: 74-year-old white female who previously sustained a left basocervical intertrochanteric type fracture. She underwent surgery in January of this year. She had no intraoperative and postoperative complications. The patient was doing well. She had initial postoperative follow-up in the office which showed stable appearance of her implants with some compression at the fracture site but no evidence of cut out of the lag screw of her cephalo-medullary nail (gamma nail). She's having no complaints of pain at that time. She was seen at approximately one month after surgery for routine follow-up visit. The patient's incision is having increasing complaints of discomfort. Radiographs at that time showed that the patient sustained complete cut out of the lag screw from the femoral head and is now impinging on the superolateral rim of the acetabulum. The components of the gamma nail appeared to be intact with no fracture of any screws the lag screw or the nail itself. The patient was fully anticoagulated on Coumadin for this time. We had her hold her Coumadin and arrangements were made to admit the patient when arrangements could be made to revise her gamma nail to a total hip arthroplasty. Due to the lack of a femoral neck because of her fracture type we needed to use a revision stem. I discussed with her that performing this surgery would be extensive. There is risk for limb length inequality and instability of her hip. Other risks include infection, nerve/blood vessel/tendon injury, potential of failure of the implants. She could require revision surgery at a later date. Due to the extensive nature of the surgery she will most likely require transfusions of packed red blood cells or potentially other blood products. Risks of transfusion include but aren't limited to transmission of infectious diseases such as hepatitis and AIDS all of which can be fatal. Medical complications associated with surgery can include blood clots, heart attack, stroke risk up to including . All questions were answered the patient is agreeable to proceed with surgery. Procedure: 3 gram Ancef repeat 3 g p 2 hrs 1.5 g Vancomycin 1 g TXA at incision and the closure Patient identified. Surgical site was signed. Surgical permit was signed. The patient received 3 g of cefazolin and 1.5 g of vancomycin intravenously for surgical prophylaxis. She was taken back to the operating room. She was placed supine on the operating room table and placed under general endotracheal anesthesia without difficulty. Cates catheter is placed for urinary drainage. Urine specimen submitted. Results of urine specimen showed no evidence of urinary tract infection. The patient is then positioned in the right lateral decubitus position with the left hip superior. She was then sterilely prepped and draped usual fashion. We made sure that we were able to appreciate the patient's patellar height as well as the medial malleoli for later assessment of limb length. After timeout was performed. the patient received 1 g of the x-ray intravenously for additional hemostasis. We used the patient's previous incision to begin our incision proximally and continued it distally for a total length was approximately 35 cm. Skin edge bleeders were coagulated with the bipolar cautery and regular cautery. We incised through the iliotibial band. Charnley retractor was put into place. Then split at the tip of the greater trochanter along the outline of the insertion of gluteus medius tendon and elevated this off using electrocautery the full thickness sleeve extending around the anterior aspect of the femoral neck to the level of the normal location of the lesser trochanter. We incised the vastus lateralis muscle in line with its fibers and using a Zamorano elevator to elevate the fibers off of the bone. Using a screwdriver remove the set screw from the gamma nail. We then removed the lag screw. We then identified the distal locking screw. The patella extraction bolt into the proximal aspect of the gamma nail. Removed the distal interlocking screw and then back slapped to extricate the gamma nail from the femur. Fluoroscopic imaging demonstrated this was done without any complication. We now turned our attention to elevation of the anterior capsule along with the gluteus medius and minimus muscles at the anterior aspect of the femoral neck. Retractors were placed about the acetabulum. We used a T-handle corkscrew to remove the femoral head and neck. Otherwise unable to perform this in one piece due to the soft nature of the bone. The head and neck were removed piecemeal and cemented for pathologic exam. Then excised the labrum. We then performed successive reaming with fluoroscopic guidance and inserted a 58 mm acetabular shell which was impacted into place again with fluoroscopic guidance and inserted to 6.5 mm x 30 mm cancellus screws for additional fixation. We then elected to place a 10? elevated liner to assist with stability of the hip. Fluoroscopic images demonstrated satisfactory placement of the acetabular components. We now turned our attention to the femoral stem. We performed successive reaming of the proximal femur after using the canal finder from 11 up to 16 mm. We selected a 16 mm diameter bowed stem and inserted as to the appropriate depth. Fluoroscopic imaging was performed and demonstrated appropriate placement of the distal portion of the stem without complication. We then reamed for the proximal body. We reamed proximally to a size 23 and measured that we delay +10 mm in length. We then a trial body and then performed a closed reduction initially trying to do a 0 neck length followed by decreasing to a -5 neck length as the standard neck length was too long and difficult to reduce. Fluoroscopic imaging with the trial components in place showed no apparent complication. The tip of the greater trochanter was at the level of the center of rotation of the femoral head. Patient had approximately 1-2 mm of shuck with traction. There is good stability of the hip with range of motion. The hip was dislocated. The actual body or proximal component was inserted and tightened into place using the torque limiter with the appropriate version. We did a trial reduction once more time with -5 neck extension is been no changes. Stability was identical shuck was 1-2 mm. We dislocated the hip for more time and then impacted the actual 36 mm outer diameter -5 mm cobalt chrome femoral head component into place. We reduced the hip. Fluoroscopic images demonstrated no apparent complications. Stiffly no fractures about the stem. The distal aspect the stem went at least 3 shaft diameters distal to the distal interlocking screw decrease risk of fractured the tip of the stem. Patellar heights and medial malleolar position was found to be a symmetric indicating appropriate oriental orthodox of limb length. The operative wound was irrigated with pulsatile lavage containing antibiotic solution. We then placed a Betadine -containing saline solution and the wound to allow the wound to do so. This was then suctioned and rinsed with antibiotic containing saline solution. A large Hemovac drain was placed from inside out. 2 suture anchors were placed in the proximal femur and this was used to repair the gluteus medius medius and minimus tendons along with the anterior joint capsule back down to bone. Surgical floor was placed in the wound. As we were closing the wound the patient received an additional 1 g of training scenic acid for hemostasis. She had been transfused at this 2 units of packed red blood cells. Due to an estimated blood loss approximately 1500 mL. Vancomycin powder was placed in the wound. We then repaired the iliotibial band with multiple inverted sutures of #2 FiberWire. The wound was then closed in layers with claire and skin glue on skin. Sterile dressings were applied. The patient had a a hip abduction wedge put into place. She is then transferred to her hospital bed in stable and satisfactory condition having total procedure well. She was extubated and taken to the Intensive Care Unit per plan due to the lateness of the hour and for close monitoring. All her splint needle and sponge counts were correct. The patient tolerated procedure well.
[2020-03-26 08:54] LABS: INR 0.97 (0.8-1.2)
[2020-03-26] MEDS: ceFAZolin 3,000 MG in sodium chloride 0.9% (100 ml) 100 ML 200 MG IV ×3 (12:00→21:22)
[2020-03-26 12:31] LABS: Bacteria Urine TRACE; Bilirubin Urine 1+ (NEGATIVE); Blood Urine Neg (Negative); Glucose Urine UA Norm (Normal); Ketones Urine 1+ (Negative); Leukocyte Esterase Urine Negative (Negative); Nitrate Urine Negative (Negative); Protein Urine Neg (Negative); Urine Appearance Clear (CLEAR); Urine Color Yellow (Yellow); Urobilinogen Urine 4 mg/dL (Negative); pH Urine 5 (5-7)
[2020-03-26 12:32] LABS: Add Urine Culture? No; Mucus Urine 4+; Squamous Epithelial Cell Urine 0-4 (0-5); WBC Urine 0-4 /hpf (0-5)
[2020-03-26] MEDS: vancomycin 1,000 MG SDV 1000 MG XX (12:41)
[2020-03-26] MEDS: neomycin-poly-bacitracin oint 28 gm 1 APPLIC TOPICAL (15:06)
--- NOTE | 2020-03-26 17:16 | XR_ITS ---
WS: [id number] HIP WITH PELVIS LEFT TECHNIQUE: 3 views of the left hip with pelvis CLINICAL INFORMATION: post op thr COMPARISON: None. FINDINGS: Postoperative left JILLIAN. Intramedullary femoral stefania. Acetabular screws. Postoperative changes in left thigh with subcutaneous air. XR/XR hip LT 2-3V wo/w pel* [id number] IMPRESSION: Satisfactory early postoperative left JILLIAN with intramedullary femoral stefania
[2020-03-26] MEDS: sodium chloride 0.9% 1,000 ML 100 ML IV (17:39)
[2020-03-26] MEDS: acetaminophen 500 mg Tablet 1000 MG PO ×2 (17:42→23:49)
[2020-03-26] MEDS: warfarin 5 mg Tablet 10 MG PO (17:42)
[2020-03-26] MEDS: carvedilol 25 mg Tablet PO (17:42)
[2020-03-26] MEDS: chlorhexidine gluconate 0.12% Btl 473 mL 30 ML MUCOUS MEM (19:28)
[2020-03-26] MEDS: sennosides-docusate Tablet 2 TAB PO (19:29)
[2020-03-26] MEDS: calcium carbonate 500 mg Chew Tablet 1000 MG PO (19:29)
[2020-03-26] MEDS: iron polysaccharide complex 150 mg Capsule PO (19:30)
[2020-03-26] MEDS: gabapentin 100 mg Capsule PO (19:30)
[2020-03-26 20:06] LABS: Glucose Point of Care 187 mg/dL (70-110)
--- NOTE | 2020-03-26 20:38 | PM.CONSULT ---
Providers/Reason For Consult Consulting Physican/Specialty*: Reece Garcia MD, family medicine Reason for Consult*: Consult for medical complications Attending Physician: Mason Russell DO Primary Care Provider: Reece Garcia MD History of Present Illness History of Present Illness Darshana Puri is a 74 year old female who presented for a scheduled revision of her left hip. The patient had a hip fracture in January 2020 and had pinning done, however this did not hold. For this reason the patient presented for follow-up with Dr. Russell and a revision was planned with a total left hip arthroplasty. Patient had this done on 03/26/2020. The patient currently feels well. She denies any chest pains, shortness breath, abdominal pain, nausea, vomiting, diarrhea, constipation. Her pain is currently well controlled. Meds/Allergies Home Medications and Allergies Home Medications Medication Instructions Recorded Confirmed Last Taken Type acetaminophen [Tylenol] 325 mg PO QID PRN 02/07/20 03/26/20 03/25/20 History amlodipine 2.5 mg PO DAILY 02/07/20 03/26/20 03/25/20 History carvedilol 25 mg PO BID 02/07/20 03/26/20 03/25/20 History citalopram [Celexa] 40 mg PO DAILY 02/07/20 03/26/20 03/25/20 History digoxin 0.25 mcg PO DAILY 02/07/20 03/26/20 03/25/20 History ferrous sulfate 65 mg PO BID 02/07/20 03/26/20 03/25/20 History furosemide 40 mg PO DAILY 02/07/20 03/26/20 03/25/20 History gabapentin 100 mg PO BID 02/07/20 03/26/20 03/25/20 History lisinopril 20 mg PO DAILY 02/07/20 03/26/20 03/25/20 History metformin See Rx Instructions .ROUTE .COMPLEX 02/07/20 03/26/20 03/24/20 History potassium chloride 20 meq PO DAILY 02/07/20 03/26/20 03/25/20 History simvastatin 40 mg PO DAILY 02/07/20 03/26/20 03/25/20 History oxycodone-acetaminophen 5 mg-325 1 tab PO Q4H PRN 6 Days #40 tab 0603/26/20 03/19/20 Rx mg tablet warfarin [Coumadin] 5 mg PO DAILY 03/22/20 03/22/20 03/22/20 History tramadol 25 mg PO BID PRN 03/26/20 03/26/20 03/26/20 04:30 History Allergies Allergy/AdvReac Type Severity Reaction Status Date / Time meperidine [From Demerol] Allergy Unknown Verified 03/22/20 11:21 Current Medications Current Medications Generic Name Dose Route Start Last Admin Trade Name Freq PRN Reason Stop Dose Admin Acetaminophen 1,000 mg 03/26/20 17:30 03/26/20 17:42 Tylenol PO 1,000 mg Q8H EMY Administration Calcium Carbonate 1,000 mg 03/26/20 18:00 03/26/20 19:29 Tums PO 1,000 mg BID EMY Administration Carvedilol 25 mg 03/26/20 18:00 03/26/20 17:42 Coreg PO 25 mg BID EMY Administration Chlorhexidine Gluconate 30 ml 03/26/20 17:16 03/26/20 19:31 Perigard MUCOUS MEM Not Given QID EMY Gabapentin 100 mg 03/26/20 18:00 03/26/20 19:30 Neurontin PO 100 mg BID EMY Administration Sodium Chloride 1,000 mls @ 100 mls/hr 03/26/20 17:16 03/26/20 20:22 Sodium Chloride 0.9% IV 100 mls/hr .Q10H EMY Infusion Insulin Aspart 0 unit 03/26/20 18:00 03/26/20 20:05 Novolog SUBCUT 6 unit WM&BEDTIME EMY Administration Protocol Mupirocin 1 applic 03/26/20 18:00 03/26/20 19:30 Bactroban NASAL 03/31/20 17:59 Not Given BID EMY Polysaccharide Iron Complex 150 mg 03/26/20 18:00 03/26/20 19:30 Ferrex PO 150 mg BIDWM EMY Administration Senna/Docusate Sodium 2 tab 03/26/20 18:00 03/26/20 19:29 Senna-S PO 2 tab BID EMY Administration PFSH Acute PFSH: Medical History Atrial fibrillation Rate controlled Branchial cleft cyst Complication involving orthopedic internal fixation device Congestive heart failure Diabetes mellitus History of fracture of left hip Sciatica Surgical History H/O section H/O vein stripping History of appendectomy Family History Father Cancer Colon cancer - of this. Mother Broken hip Social History Smoking and tobacco status: former smoker Vitals/I&O/Wt Last Vital Signs Temp 98.5 F 03/26/20 20:17 Pulse 94 03/26/20 20:17 Resp 21 H 03/26/20 20:17 BP 104/60 03/26/20 20:17 Pulse Ox 95 03/26/20 20:17 03/26/20 03/26/20 03/26/20 06:59 14:59 22:59 Intake Total 560 / 560 391.667 / 951.667 Output Total 300 / 300 200 / 500 Balance 260 / 260 191.667 / 451.667 Physical Exam Narrative: EXAM NARRATIVE: General: Alert and oriented x3. Eyes: PERRLA, EOMI Mouth: Mucous membranes moist without lesions Cardiac: Mild tachycardia with irregularly irregular rhythm without murmurs. Distant heart sounds. Lungs: Clear to auscultation bilaterally Abdomen: Soft, nontender without appreciable masses Extremities: Left hip has a Hemovac drain. Bilateral lower extremities with 1+ pitting edema. SCDs in place. Urinary Catheter Management^: Cates: Cath Placed During This Visit: yes Urinary Catheter Date of Insertion: 03/26/20 Urinary Catheter Time of Insertion: 11:35 A&P Assessment and plan (1) Hypertension: Status: Acute (2) Diabetes mellitus: Status: Acute (3) Atrial fibrillation: Status: Acute (4) Congestive heart failure: Status: Acute (5) Complication involving orthopedic internal fixation device: Status: Acute Qualifiers: Internal fixation site: femur Device complication type: mechanical Mechanical complication type: displacement Encounter type: initial encounter Laterality: left Qualified Code(s): T84.125A - Displacement of internal fixation device of left femur, initial encounter Additional A&P Information 1. Status post left hip arthroplasty -the patient had a left hip arthroplasty done and is currently doing well with it. She did have blood loss during the surgery and we will expect anemia. We will recheck hemoglobin at 4 AM and transfuse if needed. Patient's pain is currently well controlled. Continue with pain medications as scheduled. 2. Hypertension -the patient's blood pressure is currently soft. We will hold blood pressure meds for now and restart them as needed. This is likely low secondary to postoperative changes. 3. Diabetes mellitus -insulin sliding scale. Hold metformin. 4. Atrial fibrillation -currently rate controlled. We will need to restart Coumadin postoperatively. This can be done likely starting tomorrow if orthopedics is okay with this. We will need to bridge with Lovenox. I will await recommendations from orthopedics before starting medication for this. 5. Congestive heart failure -the patient's ejection fraction was 55% in January of this year. We will be careful with any additional fluids, however she is currently stable. 6. Blood loss complicating surgery -check hemoglobin in the morning and follow. Will likely need to transfuse depending on levels. 7. Prophylaxis -SCDs for now. Transition to Lovenox and Coumadin as able per orthopedics findings. Consult Attestations Medical Necessity Statement: The patient will be here for greater than 2 midnights due to postoperative changes and recovery after hip surgery. Coding Level of Care Code Acute Special Warfare Boat Operator for Junior Kumar Diagnoses Hypertension I10 Diabetes mellitus E11.9 Atrial fibrillation I48.91 Congestive heart failure I50.9 Complication involving orthopedic internal fixation device T84.125A Internal fixation site: femur Device complication type: mechanical Mechanical complication type: displacement Encounter type: initial encounter Laterality: left
[2020-03-27] VITALS (62 sets, daily range): BP systolic 92–134; BP diastolic 63–82; PULSE 74–127; RESP 15–28; TEMP 37.2–37.4; O2SAT 89–98
[2020-03-27] MEDS: sodium chloride 0.9% 1,000 ML 100 ML IV (04:21)
[2020-03-27 04:53] LABS: Basophils % 0.2 %; Eosinophils % 0.5 %; Hemoglobin 10.1 g/dL (11.5-15.3); Lymphocytes # 0.9 10^3/uL (0.8-4.8); Lymphocytes % 11.2 %; Mean Corpuscular HGB Conc 29.7 g/dL (30.0-36.0); Mean Corpuscular Hemoglobin 28.5 pg (28.0-34.0); Mean Platelet Volume 10.3 fL (7.4-10.4); Monocytes # 0.8 10^3/uL (0.2-0.9); Monocytes % 10.1 %; Neutrophils # 6.4 10^3/uL (1.8-7.7); Neutrophils % 77.6 %; Nucleated Red Blood Cells % 0 %; Platelet Count 262 10^3/cmm (130-400); Red Blood Count 3.54 10^6/uL (4.1-5.3); Red Cell Distribution Width 15.2 % (12.1-15.1); White Blood Count 8.3 10^3/uL (4.0-10.0)
[2020-03-27 04:54] LABS: INR 1.43 (0.8-1.2)
[2020-03-27 05:19] LABS: Anion Gap 13.6 (5-19); Blood Urea Nitrogen 10 mg/dL (8-23); Calcium 8.8 mg/dL (8.5-10.5); Carbon Dioxide 28 mmol/L (22-29); Chloride 104 mmol/L (98-107); Creatinine Clr Calc Pharmacy 98.4197; Glucose 140 mg/dL (65-115); Osmolality Calculated 290 mOsm/kg (285-295); Potassium 4.6 mmol/L (3.5-5.1); Sodium 141 mmol/L (136-145)
[2020-03-27] MEDS: ceFAZolin 3,000 MG in sodium chloride 0.9% (100 ml) 100 ML 200 MG IV ×2 (05:24→15:48)
[2020-03-27] MEDS: oxyCODONE 5 mg IR Tab/Cap PO ×2 (05:38→09:34)
[2020-03-27 05:59] LABS: Glucose Point of Care 140 mg/dL (70-110)
--- NOTE | 2020-03-27 07:24 | P.PN_ITS ---
Subjective Subjective: Interval history: 74-year-old white female postoperative day 1 status post removal of gamma nail which had cut out through the left femoral head and neck impinging on the acetabulum. Patient then underwent essentially a revision stem placement with total hip arthroplasty. Patient was transferred to the ICU per plan postoperatively for close monitoring overnight. No complaints of lightheadedness, dizziness, chest pain or shortness of breath. No complaints of nausea or vomiting. Hip pain and sciatica pain that the patient was having has now resolved largely. She is quite pleased. Vitals/I&O/Wt Last Vital Signs Temp 98.9 F 03/27/20 04:00 Pulse 115 H 03/27/20 07:10 Resp 15 03/27/20 07:10 BP 110/68 03/27/20 07:10 Pulse Ox 94 03/27/20 07:10 03/26/20 03/27/20 03/27/20 22:59 06:59 14:59 Intake Total 595.001 / 2048.566 6678.667 / 2241.668 Output Total 510 / 810 605 / 1415 Balance 85.001 / 345.001 481.667 / 826.668 Physical Exam Narrative: EXAM NARRATIVE: 74-year-old white female no acute distress. She is alert and cooperative. Speech is fluent. Lungs are clear to auscultation. No rales crackles or wheezes appreciated. Heart tachycardic without appreciated. Abdomen soft. Abdomen is non-tender nor distended. Hip incision is intact with minor strikethrough through dressing. Hemovac remains in place. Significant output overnight will leave drain in an additional day but will be removed without fail tomorrow. No calf tenderness bilaterally. Patient is an abduction wedge to prevent hip instability. Limb length compared using medial malleoli. Limb lengths appear equivalent. Patient is able to actively dorsiflex and plantarflex her ankle as well as her toes. She reports no numbness. Urinary Catheter Management^: Cates: Cath Placed During This Visit: yes, but has since been removed by the nurse Reason for Continuing Indwelling Catheter: Decision to DC Catheter Urinary Catheter Date of Insertion: 03/26/20 Urinary Catheter Time of Insertion: 11:35 Date Urinary Catheter Removed: 03/27/20 Time Urinary Catheter Discontinued: 05:55 Data : 03/27/20 04:20 03/27/20 04:20 A&P Assessment and plan (1) History of total left hip arthroplasty: Postoperative day 1 for left total hip arthroplasty Finish IV perioperative antibiotics, startextended oral ceftin tomorrow VTE prophylaxis, pharmacologic ( bridging lovenox with restart of coumadin), sequential compression devices, mobilization?highest risk Pain control Remove drain from operative site with dressing change Remove Cates catheter today Weight bearing status: Weight bearing as tolerated on operative limb Anterior latera hip precautions Monitor hemoglobin and hematocrit Transfer to regular medical surgical floor today Discharge planning SNF preferred versus home health Status: Acute (2) Complication involving orthopedic internal fixation device: Status: Acute Qualifiers: Device complication type: mechanical Encounter type: initial encounter Internal fixation site: femur Laterality: left Mechanical complication type: displacement Qualified Code(s): T84.125A - Displacement of internal fixation device of left femur, initial encounter (3) At risk for falls: Status: Acute (4) Hypertension: Status: Acute Qualifiers: Hypertension type: essential hypertension Qualified Code(s): I10 - Essential (primary) hypertension (5) Diabetes mellitus: Status: Acute Qualifiers: Diabetes mellitus complication status: without complication Diabetes mellitus assisted insulin use: without buttermaker use Diabetes mellitus type: type 2 Qualified Code(s): E11.9 - Type 2 diabetes mellitus without complications (6) Atrial fibrillation: Status: Acute Qualifiers: Atrial fibrillation type: unspecified Qualified Code(s): I48.91 - Unspecified atrial fibrillation (7) Congestive heart failure: Status: Acute Qualifiers: Heart failure chronicity: chronic Heart failure type: unspecified Qualified Code(s): I50.9 - Heart failure, unspecified Attestations Medical Necessity Statement*: Patient requires continued inpatient level care following removal of hardware with complications from previous hip fracture surgery requiring us to perform a total hip arthroplasty using revision stem components. Depending on patient's postoperative progress she may benefit from short stay in a retirement facility versus being discharged to home with home health. Her favors a short-term stay in a retirement facility as he is having issues with low back pain and does not feel that he is able to provide significant assistance to his Time Spent in Patient Care: 16 - 35 minutes (>than 50% of time spent in counselling and/or direct pt care on unit) . Coding Level of Care Code Acute Forepart Reducer for Chg Fwd Diagnoses History of total left hip arthroplasty Z96.642 Complication involving orthopedic internal fixation device T84.125A Device complication type: mechanical Encounter type: initial encounter Internal fixation site: femur Laterality: left Mechanical complication type: displacement At risk for falls Z91.81 Hypertension I10 Hypertension type: essential hypertension Diabetes mellitus E11.9 Diabetes mellitus complication status: without complication Diabetes mellitus buttermaker insulin use: without assisted use Diabetes mellitus type: type 2 Atrial fibrillation I48.91 Atrial fibrillation type: unspecified Congestive heart failure I50.9 Heart failure chronicity: chronic Heart failure type: unspecified
--- NOTE | 2020-03-27 07:50 | P.PN_ITS ---
Subjective Subjective: Interval history: The patient is feeling well today. She denies any chest pains or shortness of breath. She does have pain from the surgical area and oral pain meds are controlling it for now. Patient denies any constipation or diarrhea. She states that she does not want to go to the assisted for rehab. Vitals/I&O/Wt Last Vital Signs Temp 98.9 F 03/27/20 04:00 Pulse 115 H 03/27/20 07:10 Resp 15 03/27/20 07:10 BP 110/68 03/27/20 07:10 Pulse Ox 94 03/27/20 07:10 03/26/20 03/27/20 03/27/20 22:59 06:59 14:59 Intake Total 595.001 / 3602.732 3881.667 / 2241.668 Output Total 510 / 810 605 / 1415 Balance 85.001 / 345.001 481.667 / 826.668 Physical Exam Narrative: EXAM NARRATIVE: General: Alert and oriented x3. Eyes: PERRLA, EOMI Mouth: Mucous membranes moist without lesions Cardiac: Mild tachycardia with irregularly irregular rhythm without murmurs. Distant heart sounds. Lungs: Clear to auscultation bilaterally Abdomen: Soft, nontender without appreciable masses Extremities: Left hip has a Hemovac drain. Bilateral lower extremities with 1+ pitting edema. SCDs in place. Urinary Catheter Management^: Cates: Cath Placed During This Visit: yes, but has since been removed by the nurse Reason for Continuing Indwelling Catheter: Decision to DC Catheter Urinary Catheter Date of Insertion: 03/26/20 Urinary Catheter Time of Insertion: 11:35 Date Urinary Catheter Removed: 03/27/20 Time Urinary Catheter Discontinued: 05:55 Data : 03/27/20 04:20 03/27/20 04:20 A&P Assessment and plan (1) Hypertension: Status: Acute Qualifiers: Hypertension type: essential hypertension Qualified Code(s): I10 - Essential (primary) hypertension (2) Diabetes mellitus: Status: Acute Qualifiers: Diabetes mellitus type: type 2 Diabetes mellitus skilled nursing insulin use: without skilled nursing use Diabetes mellitus complication status: without complication Qualified Code(s): E11.9 - Type 2 diabetes mellitus without complications (3) Atrial fibrillation: Status: Acute Qualifiers: Atrial fibrillation type: unspecified Qualified Code(s): I48.91 - Unspecified atrial fibrillation (4) Congestive heart failure: Status: Acute Qualifiers: Heart failure type: unspecified Heart failure chronicity: chronic Qualified Code(s): I50.9 - Heart failure, unspecified (5) Complication involving orthopedic internal fixation device: Status: Acute Qualifiers: Internal fixation site: femur Device complication type: mechanical Mechanical complication type: displacement Encounter type: initial encounter Laterality: left Qualified Code(s): T84.125A - Displacement of internal fixation device of left femur, initial encounter Additional A&P Information 1. Status post left hip arthroplasty -the patient had a left hip arthroplasty done on 03/26/2020 and is currently doing well with it. She did have blood loss during the surgery but her hemoglobin is stable at this time. We will recheck hemoglobin at 3 PM and transfuse if needed. Patient's pain is currently well controlled. Continue with pain medications as scheduled. 2. Hypertension -the patient's blood pressure is currently soft. I will continue with carvedilol for rate control, but hold her other blood pressure meds for now. 3. Diabetes mellitus -insulin sliding scale. Hold metformin. 4. Atrial fibrillation -currently mildly tachycardic. Coumadin will be started and bridged with Lovenox. Currently the patient is asymptomatic. 5. Congestive heart failure -the patient's ejection fraction was 55% in January of this year. We will be careful with any additional fluids, however she is currently stable. Okay to continue with Lasix. 6. Blood loss complicating surgery -so far we will not need to transfusion. We will follow hemoglobin to see if this is necessary. 7. Prophylaxis -SCDs for now. Transition to Lovenox and Coumadin as able per orthopedics recommendations. Attestations Medical Necessity Statement*: The patient continues need inpatient care and will be here for greater than 2 midnights. She continues need ICU care to follow her multiple comorbidities. She may be able to be transferred out later this afternoon depending on her course. 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 Machine Feeder for Junior Kumar Diagnoses Hypertension I10 Hypertension type: essential hypertension Diabetes mellitus E11.9 Diabetes mellitus type: type 2 Diabetes mellitus skilled nursing insulin use: without skilled nursing use Diabetes mellitus complication status: without complication Atrial fibrillation I48.91 Atrial fibrillation type: unspecified Congestive heart failure I50.9 Heart failure type: unspecified Heart failure chronicity: chronic Complication involving orthopedic internal fixation device T84.125A Internal fixation site: femur Device complication type: mechanical Mechanical complication type: displacement Encounter type: initial encounter Laterality: left
[2020-03-27] MEDS: enoxaparin 40 mg/0.4 mL Syringe SUBCUT (07:56)
[2020-03-27] MEDS: digoxin 250 mcg Tablet PO (07:56)
[2020-03-27] MEDS: iron polysaccharide complex 150 mg Capsule PO ×2 (07:56→17:01)
[2020-03-27] MEDS: FUROsemide 40 mg Tablet PO (07:57)
[2020-03-27] MEDS: citalopram 20 mg Tablet 40 MG PO (07:57)
[2020-03-27] MEDS: atorvastatin 40 mg Tablet 20 MG PO (07:57)
[2020-03-27] MEDS: carvedilol 25 mg Tablet PO ×2 (07:57→17:00)
[2020-03-27] MEDS: cholecalciferol (vitamin D3) 1,000 unit Tablet 1000 UNIT PO (07:58)
[2020-03-27] MEDS: multivitamin therapeutic Tablet 1 TAB PO (07:58)
[2020-03-27] MEDS: acetaminophen 500 mg Tablet 1000 MG PO ×2 (07:58→16:57)
[2020-03-27] MEDS: gabapentin 100 mg Capsule PO ×2 (07:58→17:00)
[2020-03-27] MEDS: sennosides-docusate Tablet 2 TAB PO ×2 (07:58→17:00)
[2020-03-27] MEDS: calcium carbonate 500 mg Chew Tablet 1000 MG PO ×2 (07:58→17:01)
[2020-03-27] MEDS: chlorhexidine gluconate 0.12% Btl 473 mL 30 ML MUCOUS MEM ×4 (07:59→20:57)
[2020-03-27] MEDS: potassium chloride ER 10 mEq Tablet 20 MEQ PO (07:59)
[2020-03-27 11:20] LABS: Glucose Point of Care 202 mg/dL (70-110)
[2020-03-27 15:24] LABS: Hematocrit 32.2 % (37.0-47.0); Hemoglobin 9.5 g/dL (11.5-15.3)
[2020-03-27] MEDS: warfarin 5 mg Tablet 7.5 MG PO (15:41)
[2020-03-27] MEDS: mupirocin oint 22 gm 1 APPLIC NASAL (17:01)
[2020-03-27 17:16] LABS: Glucose Point of Care 154 mg/dL (70-110)
[2020-03-27 20:52] LABS: Glucose Point of Care 172 mg/dL (70-110)
--- NOTE | 2020-03-27 21:02 | PC.NURSE ---
Patient refused to wear embolic stockings but agrees to wearing scd's.
[2020-03-28] VITALS (9 sets, daily range): BP systolic 86–121; BP diastolic 52–74; PULSE 48–118; RESP 18–20; TEMP 36.4–36.9; O2SAT 89–94
[2020-03-28] MEDS: acetaminophen 500 mg Tablet 1000 MG PO ×3 (03:31→18:27)
[2020-03-28 06:01] LABS: Basophils % 0.2 %; Eosinophils # 0.1 10^3/uL (0.0-0.8); Eosinophils % 0.8 %; Hematocrit 30.4 % (37.0-47.0); Hemoglobin 9.1 g/dL (11.5-15.3); Lymphocytes % 11.4 %; Mean Corpuscular HGB Conc 29.9 g/dL (30.0-36.0); Mean Corpuscular Hemoglobin 29.2 pg (28.0-34.0); Mean Corpuscular Volume 97.4 fL (81-99); Mean Platelet Volume 10.1 fL (7.4-10.4); Monocytes % 10.6 %; Neutrophils # 6.9 10^3/uL (1.8-7.7); Neutrophils % 76.6 %; Nucleated Red Blood Cells % 0 %; Platelet Count 231 10^3/cmm (130-400); Red Blood Count 3.12 10^6/uL (4.1-5.3); Red Cell Distribution Width 15.3 % (12.1-15.1)
--- NOTE | 2020-03-28 06:29 | PC.NURSE ---
Shift Summary Patient rested though the night in recliner. Patient is incontinent with 3 voids. Incision bandage was reinforced once with a 4x4 and tegad[place] where the drain tubing is placed. Patient was able to stand using the walker and ambulate to [facility] [place].
[2020-03-28 06:35] LABS: Alanine Aminotransferase < 5 U/L (0-33); Albumin Level 2.5 g/dL (3.5-5.2); Alkaline Phosphatase 76 IU/L (35-105); Aspartate Amino Transferase 9 U/L (0-32); Blood Urea Nitrogen 8 mg/dL (8-23); Calcium 8.6 mg/dL (8.5-10.5); Carbon Dioxide 28 mmol/L (22-29); Chloride 100 mmol/L (98-107); Creatinine Clr Calc Pharmacy 98.4197; Globulin 3.1 g/dL (1.3-4.6); Glucose 143 mg/dL (65-115); Osmolality Calculated 282 mOsm/kg (285-295); Sodium 137 mmol/L (136-145); Total Bilirubin 0.3 mg/dL (0.15-1.2); Total Protein 5.6 g/dL (6.6-8.7)
[2020-03-28 06:38] LABS: Glucose Point of Care 156 mg/dL (70-110)
--- NOTE | 2020-03-28 07:51 | P.PN_ITS ---
Subjective Subjective: Interval history: 74-year-old white female postoperative day 2 status post removal of deep orthopedic implants due to cut out of gamma nail from femoral head and neck. Patient underwent left-sided total hip arthroplasty using revision stem components. Patient transferred from ICU yesterday as she was doing well. Vitals/I&O/Wt Last Vital Signs Temp 97.8 F 03/28/20 04:00 Pulse 97 03/28/20 04:00 Resp 18 03/28/20 04:00 BP 114/74 03/28/20 04:00 Pulse Ox 91 03/28/20 04:00 03/27/20 03/28/20 03/28/20 22:59 06:59 14:59 Output Total 25 / 125 150 / 275 Balance -25 / 115 -150 / -35 Physical Exam Narrative: EXAM NARRATIVE: 74-year-old white female in no acute distress. She is alert and cooperative. Lungs are clear to auscultation heart regular rate and rhythm. Patient became tachycardic from monitor with standing during dressing change. Abdomen soft nontender Dressing was changed proximal incision is intact with no bleeding. Drain was removed from distal to the incision Jim amount of bloody fluid drained spontaneously from the wound. Bulky dressing was applied to the distal pole of the incision [place]a [place] dressing was applied. No calf tenderness bilaterally. Patient denied chest pain and lightheadedness with standing but became fatigued very easily. Urinary Catheter Management^: Cates: Cath Placed During This Visit: yes, but has since been removed by the nurse Reason for Continuing Indwelling Catheter: Decision to DC Catheter Urinary Catheter Date of Insertion: 03/26/20 Urinary Catheter Time of Insertion: 11:35 Date Urinary Catheter Removed: 03/27/20 Time Urinary Catheter Discontinued: 05:55 Data : 03/29/20 05:20 03/29/20 05:20 Micro: Microbiology 03/26/20 12:00 Urine Culture - Preliminary Urine,Clean Catch A&P Assessment and plan (1) History of total left hip arthroplasty: dressing change today Pull drain from left hip incision start extended oral prophylaxis using Ceftin 500 mg 1 by mouth twice a day for 7 days stop Lovenox continue Coumadin try to maintain INR 1.5-2.5 and postoperative period, also stopping Lovenox to prevent over anticoagulation the could lead to increased postoperative bleeding that can drive the need to do postoperative transfusion. Check hemoglobin hematocrit later today as well as monitor vital signs for potential for transfusion. 2 units of packed red blood cells are available. Continue physical therapy to mobilize patient. Discharge planning home with home health his preferred by patient. Discussed with patient going to a skilled facility for a brief stay and she was agreeable to this. I discussed this with the cyber policy and strategy planner. Status: Acute (2) Complication involving orthopedic internal fixation device: Status: Acute Qualifiers: Device complication type: mechanical Encounter type: initial encounter Internal fixation site: femur Laterality: left Mechanical complication type: d isplacement Qualified Code(s): T84.125A - Displacement of internal fixation device of left femur, initial encounter (3) Postoperative anemia due to acute blood loss: Status: Acute (4) Diabetes mellitus: Status: Acute Qualifiers: Diabetes mellitus complication status: without complication Diabetes mellitus press tender long goods insulin use: without press tender long goods use Diabetes mellitus type: type 2 Qualified Code(s): E11.9 - Type 2 diabetes mellitus without complications (5) Atrial fibrillation: Status: Acute Qualifiers: Atrial fibrillation type: unspecified Qualified Code(s): I48.91 - Unspecified atrial fibrillation (6) Hypertension: Status: Acute Qualifiers: Hypertension type: essential hypertension Qualified Code(s): I10 - Essential (primary) hypertension Attestations Medical Necessity Statement*: patient requires continued inpatient level care. Blood pressure soft overnight. Patient still may require blood transfusion during this hospitalization. Patient's preferences to go home with home health. We will work towards that end. Coding Level of Care Code Acute Explosive Ordnance Handler for Junior Kumar Diagnoses History of total left hip arthroplasty Z96.642 Complication involving orthopedic internal fixation device T84.125A Device complication type: mechanical Encounter type: initial encounter Internal fixation site: femur Laterality: left Mechanical complication type: displacement Postoperative anemia due to acute blood loss D62 Diabetes mellitus E11.9 Diabetes mellitus complication status: without complication Diabetes mellitus intermediate insulin use: without intermediate use Diabetes mellitus type: type 2 Atrial fibrillation I48.91 Atrial fibrillation type: unspecified Hypertension I10 Hypertension type: essential hypertension
--- NOTE | 2020-03-28 08:00 | P.PN_ITS ---
Subjective Subjective: Interval history: The patient states that her pain is improving. The patient states that she is able to stand by the bed for 10 to 15 minutes at a time. Upon further questioning she was not able to get up to void in the bedside commode. She does not want to go to the intermediate for rehabilitation, however is wondering if it may be necessary. She is trying to decide what would be best. The patient denies any chest pains, shortness of breath or abdominal pain. Vitals/I&O/Wt Last Vital Signs Temp 97.8 F 03/28/20 04:00 Pulse 97 03/28/20 04:00 Resp 18 03/28/20 04:00 BP 114/74 03/28/20 04:00 Pulse Ox 91 03/28/20 04:00 03/27/20 03/28/20 03/28/20 22:59 06:59 14:59 Output Total 25 / 125 150 / 275 Balance -25 / 115 -150 / -35 Physical Exam Narrative: EXAM NARRATIVE: General: Alert and oriented x3. Eyes: PERRLA, EOMI Mouth: Mucous membranes moist without lesions Cardiac: Mild tachycardia with irregularly irregular rhythm without murmurs. Distant heart sounds. Lungs: Clear to auscultation bilaterally Abdomen: Soft, nontender without appreciable masses Extremities: Left hip has a Hemovac drain. Bloodstained gauze over the left hip. Bilateral lower extremities with 1+ pitting edema. SCDs in place. Urinary Catheter Management^: Cates: Cath Placed During This Visit: yes, but has since been removed by the nurse Reason for Continuing Indwelling Catheter: Decision to DC Catheter Urinary Catheter Date of Insertion: 03/26/20 Urinary Catheter Time of Insertion: 11:35 Date Urinary Catheter Removed: 03/27/20 Time Urinary Catheter Discontinued: 05:55 Data : 03/28/20 05:40 03/28/20 05:40 Micro: Microbiology 03/26/20 12:00 Urine Culture - Preliminary Urine,Clean Catch A&P Assessment and plan (1) Hypertension: Status: Acute Qualifiers: Hypertension type: essential hypertension Qualified Code(s): I10 - Essential (primary) hypertension (2) Diabetes mellitus: Status: Acute Qualifiers: Diabetes mellitus type: type 2 Diabetes mellitus adjunct faculty for medical terminology insulin use: without adjunct faculty for medical terminology use Diabetes mellitus complication status: without c omplication Qualified Code(s): E11.9 - Type 2 diabetes mellitus without co mplications (3) Atrial fibrillation: Status: Acute Qualifiers: Atrial fibrillation type: unspecified Qualified Code(s): I48.91 - Unspecified atrial fibrillation (4) Congestive heart failure: Status: Acute Qualifiers: Heart failure type: unspecified Heart failure chronicity: chronic Qualified Code(s): I50.9 - Heart failure, unspecified (5) Complication involving orthopedic internal fixation device: Status: Acute Qualifiers: Internal fixation site: femur Device complication type: mechanical Mechanical complication type: displacement Encounter type: initial encounter Laterality: left Qualified Code(s): T84.125A - Displacement of internal fixation device of left femur, initial encounter Additional A&P Information 1. Status post left hip arthroplasty -the patient had a left hip arthroplasty done on 03/26/2020 and is currently doing well with it. She did have blood loss during the surgery but her hemoglobin is stable at this time. The patient's pain is currently well controlled. The patient's bandage is blood soaked. Will defer to Ortho for this. Continue with pain medications as scheduled. Personally I would recommend that the patient goes to a rehab facility as she did not do well with her prior stent at home. I discussed this with her today and she will consider it. 2. Hypertension -the patient's blood pressure is currently soft. I will continue with carvedilol for rate control, but hold her amlodipine. Decrease lisinopril by half. 3. Diabetes mellitus -insulin sliding scale. Hold metformin. 4. Atrial fibrillation -currently mildly tachycardic. Coumadin will be started and bridged with Lovenox. Currently the patient is asymptomatic. INR for tomorrow pending. 5. Congestive heart failure -the patient's ejection fraction was 55% in January of this year. We will be careful with any additional fluids, however she is currently stable. Okay to continue with Lasix. 6. Blood loss complicating surgery -so far we will not need to transfusion. We will follow hemoglobin to see if this is necessary. 7. Prophylaxis -SCDs for now. Transition to Lovenox and Coumadin as able per orthopedics recommendations. Attestations Medical Necessity Statement*: Per orthopedics. Coding Level of Care Code Acute Entry Specialist for Junior Kumar Diagnoses Hypertension I10 Hypertension type: essential hypertension Diabetes mellitus E11.9 Diabetes mellitus type: type 2 Diabetes mellitus adjunct faculty for medical terminology insulin use: without detention use Diabetes mellitus complication status: without complication Atrial fibrillation I48.91 Atrial fibrillation type: unspecified Congestive heart failure I50.9 Heart failure type: unspecified Heart failure chronicity: chronic Complication involving orthopedic internal fixation device T84.125A Internal fixation site: femur Device complication type: mechanical Mechanical complication type: displacement Encounter type: initial encounter Laterality: left
[2020-03-28 08:02] LABS: INR 3.09 (0.8-1.2)
[2020-03-28] MEDS: calcium carbonate 500 mg Chew Tablet 1000 MG PO ×2 (08:46→18:27)
[2020-03-28] MEDS: sennosides-docusate Tablet 2 TAB PO ×2 (08:46→18:27)
[2020-03-28] MEDS: cholecalciferol (vitamin D3) 1,000 unit Tablet 1000 UNIT PO (08:46)
[2020-03-28] MEDS: citalopram 20 mg Tablet 40 MG PO (08:47)
[2020-03-28] MEDS: digoxin 250 mcg Tablet PO (08:47)
[2020-03-28] MEDS: cefUROXime 250 mg Tablet 500 MG PO ×2 (08:48→18:27)
[2020-03-28] MEDS: potassium chloride ER 10 mEq Tablet 20 MEQ PO (08:48)
[2020-03-28] MEDS: atorvastatin 40 mg Tablet 20 MG PO (08:48)
[2020-03-28] MEDS: FUROsemide 40 mg Tablet PO (08:48)
[2020-03-28] MEDS: carvedilol 25 mg Tablet PO ×2 (08:48→18:28)
[2020-03-28] MEDS: multivitamin therapeutic Tablet 1 TAB PO (08:48)
[2020-03-28] MEDS: iron polysaccharide complex 150 mg Capsule PO ×2 (08:49→18:27)
[2020-03-28] MEDS: gabapentin 100 mg Capsule PO ×2 (08:49→18:27)
[2020-03-28] MEDS: pantoprazole DR 40 mg Tablet PO (08:49)
[2020-03-28] MEDS: lisinopril 10 mg Tablet PO (08:49)
[2020-03-28] MEDS: enoxaparin 40 mg/0.4 mL Syringe SUBCUT (09:02)
[2020-03-28] MEDS: sodium chloride 0.9% (100 ml) 100 ML 50 ML (09:59)
--- NOTE | 2020-03-28 10:51 | PC.OT ---
OT AM treatment attempted but pt declined due to tiredness. Pt agreed to PM treatment; OT will attempt again in PM.-BRENDA Lowe/Heather
--- NOTE | 2020-03-28 10:55 | PC.CHAP ---
Pastoral Care Encounter/Spiritual Assessment Type of Contact [] Declined college professor visit [] Patient/Family/Request visit [] Outpatient visit [] Follow-up visit [] Physician referral [] Code/Alert [x] Routine visit [] Staff referral [] Actively dying [] Patient sleeping [] Family support [] [] Out of room [] Palliative care [] [] Receiving care in room [] Pre-surgical visit [] Trauma [] Long length of stay [] ICU visit [] Other: Relational/Emotional Strength [x] Patient feels connected with others/family/visitors/staff [] Distress [] Loneliness/isolation [] Abandonment Spirituality of Patient [x] Person of Mago [] Attends Jewish of their Mago [] Believes in Prayer [] Reads Bible or Caodaism materials [] There are Spiritual issues to be addressed Physician Non Invasive Cardiologist Interventions [x] Prayer [x] Active listening [x] Non-anxious presence [] Spiritual/emotional support [] Crisis/trauma care [] Spiritual counseling [] Bereavement support [] Provided bereavement packet [] Provided Bible/devotional materials [] Provided toy/stuffed animal, coloring book to patient or family member [] Provided Communion [] Anointing/[place] [] Salvation [] Completed spiritual assessment [] Other: Impact on Illness or Injury [] Angry [] Fearful [] Anxious [] Often cries [] Exhaustion [] Unable to work [] Unable to attend yazidi [] Unable to walk/stand [] Unable to read [] Unable to drive [] Unable to eat/drink [] Unable to sleep [] Unable to be with family [] Patient intubated [] Other: Summary Time spent with patient 3 minutes
[2020-03-28 12:51] LABS: Glucose Point of Care 162 mg/dL (70-110)
[2020-03-28 17:10] LABS: Glucose Point of Care 146 mg/dL (70-110)
[2020-03-28] MEDS: chlorhexidine gluconate 0.12% Btl 473 mL 30 ML MUCOUS MEM ×2 (18:28→21:52)
[2020-03-28 21:35] LABS: Glucose Point of Care 162 mg/dL (70-110)
[2020-03-28 21:36] LABS: Hematocrit 34.4 % (37.0-47.0); Hemoglobin 10.2 g/dL (11.5-15.3)
[2020-03-28] MEDS: sodium chloride 0.9% 1,000 ML 100 ML IV (22:42)
[2020-03-29] VITALS (8 sets, daily range): BP systolic 86–120; BP diastolic 56–67; PULSE 68–91; RESP 16–20; TEMP 36.4–36.8; O2SAT 88–96
[2020-03-29] MEDS: acetaminophen 500 mg Tablet 1000 MG PO (04:53)
[2020-03-29 05:42] LABS: Basophils % 0.4 %; Eosinophils # 0.2 10^3/uL (0.0-0.8); Hematocrit 34.2 % (37.0-47.0); Hemoglobin 10.4 g/dL (11.5-15.3); Lymphocytes # 0.9 10^3/uL (0.8-4.8); Lymphocytes % 12.5 %; Mean Corpuscular HGB Conc 30.4 g/dL (30.0-36.0); Mean Corpuscular Hemoglobin 29.1 pg (28.0-34.0); Mean Corpuscular Volume 95.8 fL (81-99); Mean Platelet Volume 9.8 fL (7.4-10.4); Monocytes # 0.9 10^3/uL (0.2-0.9); Monocytes % 11.8 %; Neutrophils # 5.3 10^3/uL (1.8-7.7); Neutrophils % 71.9 %; Nucleated Red Blood Cells % 0 %; Platelet Count 205 10^3/cmm (130-400); Red Blood Count 3.57 10^6/uL (4.1-5.3); Red Cell Distribution Width 16.1 % (12.1-15.1); White Blood Count 7.3 10^3/uL (4.0-10.0)
[2020-03-29 05:59] LABS: INR 2.44 (0.8-1.2)
[2020-03-29 06:01] LABS: Alanine Aminotransferase < 5 U/L (0-33); Albumin Level 2.5 g/dL (3.5-5.2); Alkaline Phosphatase 74 IU/L (35-105); Anion Gap 12.2 (5-19); Aspartate Amino Transferase 9 U/L (0-32); Blood Urea Nitrogen 9 mg/dL (8-23); Calcium 8.5 mg/dL (8.5-10.5); Carbon Dioxide 28 mmol/L (22-29); Chloride 104 mmol/L (98-107); Creatinine Clr Calc Pharmacy 98.4197; Globulin 3.2 g/dL (1.3-4.6); Glucose 133 mg/dL (65-115); Osmolality Calculated 288 mOsm/kg (285-295); Potassium 4.2 mmol/L (3.5-5.1); Sodium 140 mmol/L (136-145); Total Bilirubin 0.4 mg/dL (0.15-1.2); Total Protein 5.7 g/dL (6.6-8.7)
[2020-03-29 07:23] LABS: Glucose Point of Care 145 mg/dL (70-110)
[2020-03-29] MEDS: potassium chloride ER 10 mEq Tablet 20 MEQ PO (08:24)
[2020-03-29] MEDS: carvedilol 12.5 mg Tablet PO (08:24)
[2020-03-29] MEDS: iron polysaccharide complex 150 mg Capsule PO (08:24)
[2020-03-29] MEDS: pantoprazole DR 40 mg Tablet PO (08:24)
[2020-03-29] MEDS: multivitamin therapeutic Tablet 1 TAB PO (08:25)
[2020-03-29] MEDS: citalopram 20 mg Tablet 40 MG PO (08:25)
[2020-03-29] MEDS: lisinopril 10 mg Tablet PO (08:25)
[2020-03-29] MEDS: atorvastatin 40 mg Tablet 20 MG PO (08:25)
[2020-03-29] MEDS: enoxaparin 40 mg/0.4 mL Syringe SUBCUT (08:27)
[2020-03-29] MEDS: sodium chloride 0.9% 1,000 ML 100 ML IV (08:27)
[2020-03-29] MEDS: cholecalciferol (vitamin D3) 1,000 unit Tablet 1000 UNIT PO (08:28)
[2020-03-29] MEDS: calcium carbonate 500 mg Chew Tablet 1000 MG PO (08:28)
[2020-03-29] MEDS: FUROsemide 40 mg Tablet PO (08:32)
[2020-03-29] MEDS: cefUROXime 250 mg Tablet 500 MG PO (08:32)
[2020-03-29] MEDS: digoxin 250 mcg Tablet PO (08:32)
[2020-03-29] MEDS: gabapentin 100 mg Capsule PO (08:32)
--- NOTE | 2020-03-29 09:01 | P.DS_ITS ---
Discharge Providers Date of Admission: 03/26/20 15:57 Date of Discharge: March 29, 2020 Attending Provider at Admission: Mason Russell DO Attending Provider at Discharge: Mason Russell DO Primary Care Provider: Reece Garcia MD Diagnoses at Discharge Discharge Diagnosis (1) History of total left hip arthroplasty: Status: Acute (2) Complication involving orthopedic internal fixation device: Status: Acute Qualifiers: Device complication type: mechanical Encounter type: initial encounter Internal fixation site: femur Laterality: left Mechanical complication type: displacement Qualified Code(s): T84.125A - Displacement of internal fixation device of left femur, initial encounter (3) Postoperative anemia due to acute blood loss: Status: Acute (4) Diabetes mellitus: Status: Acute Qualifiers: Diabetes mellitus complication status: without complication Diabetes mellitus termination clerk insulin use: without termination clerk use Diabetes mellitus type: type 2 Qualified Code(s): E11.9 - Type 2 diabetes mellitus without complications (5) Atrial fibrillation: Status: Acute Problem details: Rate controlled Qualifiers: Atrial fibrillation type: unspecified Qualified Code(s): I48.91 - Unspecified atrial fibrillation (6) Hypertension: Status: Acute Qualifiers: Hypertension type: essential hypertension Qualified Code(s): I10 - Essential (primary) hypertension Reason for Visit Reason for Visit: Left hip painful hardware Hospital Course Hospital Course: Patient was a 74-year-old white female who previously undergone open reduction internal fixation using a cephalo-medullary nail for a comminuted intertrochanteric hip fracture. She was doing well at her two-week postoperative visit on February 23, 2020. She was then seen at her 6-week postop visit and had an increase in pain. X-rays at that time showed cut out of the lag screw and threads from the head and neck of the left hip with threads of the lag screw impinging on the superior lateral aspect of the acetabulum. I recommended the patient undergo revision surgery. She was on Coumadin. We had her stop her Coumadin and made arrangements to [facility] revision hip arthroplasty components to deal with her proximal femoral loss of bone specifically the area of the calcar above the lesser trochanter and the loss of the femoral neck. She was admitted on March 26 to the hospital after undergoing removal of deep rika dware (gamma nail) and undergoing total hip arthroplasty using a revision stem. The patient received both vancomycin and cefazolin pre-and postoperatively intravenously for surgical prophylaxis. She received 2 units of packed red blood cells during the surgical procedure. Intraoperative fluoroscopic images and postoperative images showed satisfactory placement of implants with no apparent complications. Following surgery the patient was transferred to the intensive care unit overnight for close monitoring. She did well and was transferred the next day to the medical surgical floor. The patient's blood pressure was soft and she became tachycardic without symptoms with simply standing so she was transfused an additional 2 units of packed red blood cells. Hemoglobin the time of discharge was 10.1. She is not having any orthostatic symptoms no complaints of chest pain shortness of breath or dizziness. The patient was restarted on Coumadin and had bridging low molecular weight heparin. The heparin was discontinued and she is continued on her Coumadin at discharge 5 mg/day. She was started on extended oral prophylaxis due to her extended surgery and diabetes using cefuroxime 500 mg 1 p.o. twice daily for 7 days. Her pain is well controlled. Patient be discharged on Percocet 5/325 1 p.o. every 4 hours as needed pain. She is weightbearing as tolerated on the left lower ex tremity. Patient is allowed to shower with change of her dressings. The incision is closed with claire covered with skin glue. Patient will use an abduction wedge while sleeping until she is seen in the office. Her follow-up appointment with me is on April 17 at 1 PM. Patient be discharged [place] a [place] [facility] where she can have close observation she is a fall risk. Also this will give her a chance to participate actively in rehabilitation exercises. Follow-up with Dr. Garcia (PCP) per his recommendations. Discharge Summary: See below for discharge orders and disposition Physical Exam Narrative: EXAM NARRATIVE: 74-year-old white female in no acute distress. She is alert and cooperative. Speech is fluent. Using a lift chair the patient was able to stand her walker to allow us to do a dressing change. Dressings were removed. Incision is intact claire covered with skin glue in place over the incision. Her drain site has closed overnight I was unable to express any bloody fluid or serosanguineous fluid from the drain site. Triple antibiotic ointment and absorbent 4 x 4 dressing with waterproof tape was applied as well as Telfa island dressing to the incision line. Her lungs are clear to auscultation specifically no wheezing crackles or rales appreciated. Heart is regular rate and rhythm. Abdomen is soft and nontender. No calf tenderness bilaterally. Urinary Catheter Management^: Cates: Cath Placed During This Visit: yes, but has since been removed by the nurse Reason for Continuing Indwelling Catheter: Decision to DC Catheter Urinary Catheter Date of Insertion: 03/26/20 Urinary Catheter Time of Insertion: 11:35 Date Urinary Catheter Removed: 03/27/20 Time Urinary Catheter Discontinued: 05:55 Discharge Data Data Completed and Pending: Completed Studies During Hospitalization Category Date Time Status XR hip LT 1V wo/[place] pel [id number] Routine Exams 03/26/20 Completed XR hip LT 2-3V wo /w pel* [id number] Rout ine Exams 03/26/20 17:16 Completed Pending at discharge Category Date Time Status Complete Blood Co unt w/Auto Routine Lab 03/29/20 09:11 Ordered Comprehensive Met abolic Panel AM LA BS Lab 03/30/20 04:00 Ordered Leukocyte Reduced RBC Routine Lab 03/26/20 07:25 Results Prothrombin Time INR Routine Lab 03/29/20 09:11 Ordered Retype for XM Rou alfa Lab 03/26/20 07:25 Results Type and Screen R outine Lab 03/26/20 07:25 Results Pathology: Surgic al [PTH] Routine Pth 03/26/20 16:08 Received Labs from last 24 hours 03/29/20 03/29/20 03/29/20 07:19 05:20 05:20 WBC RBC Hgb Hct MCV MCH MCHC RDW Plt Count MPV Neut % (Auto) Lymph % (Auto) [place] % (Auto) Eos % (Auto) Baso % (Auto) Neut # (Auto) Lymph # (Auto) [place] # (Auto) Eos # (Auto) Baso # (Auto) Nucleated RBC % (a uto) Nucleated RBCs # PT 27.40 H INR 2.44 H Sodium 140 Potassium 4.2 Chloride 104 Carbon Dioxide 28 Anion Gap 12.2 BUN 9 Creatinine 0.4 L Glucose 133 H POC Glucose 145 Calculated Osmolal ity 288 Calcium 8.5 Total Bilirubin 0.4 AST 9 ALT < 5 Alkaline Phosphata se 74 Total Protein 5.7 L Albumin 2.5 L Globulin 3.2 Blood Type Rho(D) Type Antibody Screen Crossmatch 07/03/20 07/02/20 07/02/20 05:20 21:30 21:11 WBC 7.3 RBC 3.57 L Hgb 10.4 L 10.2 L Hct 34.2 L 34.4 L MCV 95.8 MCH 29.1 MCHC 30.4 RDW 16.1 H Plt Count 205 MPV 9.8 Neut % (Auto) 71.9 Lymph % (Auto) 12.5 [place] % (Auto) 11.8 Eos % (Auto) 3.0 Baso % (Auto) 0.4 Neut # (Auto) 5.3 Lymph # (Auto) 0.9 [place] # (Auto) 0.9 Eos # (Auto) 0.2 Baso # (Auto) 0.0 Nucleated RBC % (a uto) 0 Nucleated RBCs # 0.0 PT INR Sodium Potassium Chloride Carbon Dioxide Anion Gap BUN Creatinine Glucose POC Glucose 162 Calculated Osmolal ity Calcium Total Bilirubin AST ALT Alkaline Phosphata se Total Protein Albumin Globulin Blood Type Rho(D) Type Antibody Screen Crossmatch 03/28/20 03/28/20 03/26/20 17:04 12:28 07:25 WBC RBC Hgb Hct MCV MCH MCHC RDW Plt Count MPV Neut % (Auto) Lymph % (Auto) [place] % (Auto) Eos % (Auto) Baso % (Auto) Neut # (Auto) Lymph # (Auto) [place] # (Auto) Eos # (Auto) Baso # (Auto) Nucleated RBC % (a uto) Nucleated RBCs # PT INR Sodium Potassium Chloride Carbon Dioxide Anion Gap BUN Creatinine Glucose POC Glucose 146 162 Calculated Osmolal ity Calcium Total Bilirubin AST ALT Alkaline Phosphata se Total Protein Albumin Globulin Blood Type A Positive Rho(D) Type Positive Antibody Screen Negative Crossmatch See Detail Vitals: Last Vital Signs Temp 98.0 F 03/29/20 08:00 Pulse 91 03/29/20 08:00 Resp 20 H 03/29/20 08:00 BP 102/66 03/29/20 08:00 Pulse Ox 88 L 03/29/20 08:00 Discharge Plan Discharge Patient Disposition: Xfer SNF Condition: Stable Prescriptions: New oxycodone-acetaminophen 5-325 mg tablet 1 tab PO Q4H PRN (Reason: pain) Qty: 40 RF: 0 cefuroxime axetil 500 mg tablet 500 mg PO BID 7 Days Qty: 14 RF: 0 No Action oxycodone-acetaminophen [Percocet] 5-325 mg tablet 1 tab PO Q4H PRN (Reason: pain) 6 Days Qty: 40 RF: 0 furosemide 40 mg tablet 40 mg PO DAILY RF: 0 metformin 500 mg tablet See Rx Instructions .ROUTE .COMPLEX RF: 0 carvedilol 25 mg tablet 25 mg PO BID RF: 0 acetaminophen [Tylenol] 325 mg Tablet 325 mg PO QID PRN (Reason: Pain) RF: 0 citalopram [Celexa] 40 mg tablet 40 mg PO DAILY RF: 0 lisinopril 20 mg tablet 20 mg PO DAILY RF: 0 amlodipine 2.5 mg tablet 2.5 mg PO DAILY RF: 0 digoxin 250 mcg (0.25 mg) tablet 0.25 mcg PO DAILY RF: 0 simvastatin 40 mg tablet 40 mg PO DAILY RF: 0 potassium chloride 20 mEq tablet,ER particles/crystals 20 meq PO DAILY RF: 0 ferrous sulfate 325 mg (65 mg iron) tablet 65 mg PO BID RF: 0 gabapentin 100 mg capsule 100 mg PO BID RF: 0 Coumadin 5 mg Tablet 5 mg PO DAILY RF: 0 tramadol 50 mg Tablet 25 mg PO BID PRN (Reason: Pain) RF: 0 Discharge Orders: Discharge Order (Routine); Ordered 03/29/20 Ordered By: Mason Russell Referrals: [facility] [Outside] Mason Russell DO [Physician] - 04/17/20 1:00 pm Discharge Diet: Diabetic Discharge Activity: Use walker/crutches as instructed Activity Restrictions/Additional Instructions: Telfa island dressing to hip incision and to drain site until no drainage. When no drainage from incision or drain site, no dressing is required. At drain site please apply antibiotic ointment. use abduction wedge when in bed. Patient may shower followed by dressing change. Weightbearing as tolerated left lower extremity with anterolateral hip precautions Therapy [facility] [place] should work on gait and transfer training. No exercises targeting left hip abductors Therapy may work on upper and lower body strengthening and conditioning. Discharge Attestations Time Spent in Discharge Care*: greater than 30 min Specific Discharge Activities: Specific discharge activities: educating patient and discussing with correctional counselor/case manager/social workers/dc planners Quality Metrics Clinical Quality Measures During this hospital stay, did patient experience: None Coding Level of Care Code Acute Sausage Inspector for Junior Fwryann Diagnoses History of total left hip arthroplasty Z96.642 Complication involving orthopedic internal fixation device T84.125A Device complication type: mechanical Encounter type: initial encounter Internal fixation site: femur Laterality: left Mechanical complication type: displacement Postoperative anemia due to acute blood loss D62 Diabetes mellitus E11.9 Diabetes mellitus complication status: without complication Diabetes mellitus senior care insulin use: without termination clerk use Diabetes mellitus type: type 2 Atrial fibrillation I48.91 Atrial fibrillation type: unspecified Hypertension I10 Hypertension type: essential hypertension
--- NOTE | 2020-03-29 09:43 | DCPLANNER ---
Pg 2 of IM updated and explained to pt. No questions, copy provided.
[2020-03-29 10:15] LABS: Basophils % 0.5 %; Eosinophils # 0.2 10^3/uL (0.0-0.8); Eosinophils % 2.9 %; Hematocrit 36.8 % (37.0-47.0); Lymphocytes # 0.9 10^3/uL (0.8-4.8); Lymphocytes % 10.5 %; Mean Corpuscular HGB Conc 29.9 g/dL (30.0-36.0); Mean Corpuscular Hemoglobin 28.8 pg (28.0-34.0); Mean Corpuscular Volume 96.3 fL (81-99); Mean Platelet Volume 9.7 fL (7.4-10.4); Monocytes # 0.7 10^3/uL (0.2-0.9); Monocytes % 8.1 %; Neutrophils # 6.3 10^3/uL (1.8-7.7); Neutrophils % 77.5 %; Nucleated Red Blood Cells % 0 %; Platelet Count 264 10^3/cmm (130-400); Red Blood Count 3.82 10^6/uL (4.1-5.3); Red Cell Distribution Width 16.1 % (12.1-15.1); White Blood Count 8.1 10^3/uL (4.0-10.0)
--- NOTE | 2020-03-29 10:18 | PC.CHAP ---
Pastoral Care Encounter/Spiritual Assessment Type of Contact [] Declined ear muff assembler visit [] Patient/Family/Request visit [] Outpatient visit [] Follow-up visit [] Physician referral [] Code/Alert [x] Routine visit [] Staff referral [] Actively dying [] Patient sleeping [] Family support [] [] Out of room [] Palliative care [] [] Receiving care in room [] Pre-surgical visit [] Trauma [] Long length of stay [] ICU visit [] Other: Relational/Emotional Strength [] Patient feels connected with others/family/visitors/staff [] Distress [] Loneliness/isolation [] Abandonment Spirituality of Patient [] Person of Mago [] Attends Cheondoism of their [place] [] Believes in Prayer [] Reads Bible or Yazidism materials [] There are Spiritual issues to be addressed Assembler Mechanical Ordnance Interventions [x] Prayer [x] Active listening [x] Non-anxious presence [x] Spiritual/emotional support [] Crisis/trauma care [] Spiritual counseling [] Bereavement support [] Provided bereavement packet [] Provided Bible/devotional materials [] Provided toy/stuffed animal, coloring book to patient or family member [] Provided Communion [] Anointing/[place] [] Salvation [x] Completed spiritual assessment [] Other: Impact on Illness or Injury [] Angry [] Fearful [] Anxious [] Often cries [] Exhaustion [] Unable to work [] Unable to attend zoroastrian [] Unable to walk/stand [] Unable to read [] Unable to drive [] Unable to eat/drink [] Unable to sleep [] Unable to be with family [] Patient intubated [] Other: Summary hip surgery- going to rehab today!! delightful lady Time spent with patient 25 min
[2020-03-29 10:23] LABS: INR 2.26 (0.8-1.2)
--- NOTE | 2020-03-29 10:45 | P.PN_ITS ---
Subjective Subjective: Interval history: The patient is feeling better. She denies any chest pains. Her pain is well controlled. The patient denies any shortness of breath, nausea, vomiting, diarrhea, constipation. She has decided that she would like to go to nursing home for rehabilitation. Vitals/I&O/Wt Last Vital Signs Temp 98.0 F 03/29/20 08:00 Pulse 91 03/29/20 08:32 Resp 20 H 03/29/20 08:00 BP 102/66 03/29/20 08:00 Pulse Ox 88 L 03/29/20 08:00 03/28/20 03/29/20 03/29/20 22:59 06:59 14:59 Intake Total 200 / 600 240 / 840 1095 / 1095 Output Total 200 / 200 Balance 200 / 300 240 / 540 895 / 895 Physical Exam Narrative: EXAM NARRATIVE: General: Alert and oriented x3. Mouth: Mucous membranes moist without lesions Cardiac: Mild tachycardia with irregularly irregular rhythm without murmurs. Distant heart sounds. Lungs: Clear to auscultation bilaterally Abdomen: Soft, nontender without appreciable masses Extremities: Bilateral lower extremities with 1+ pitting edema. Urinary Catheter Management^: Cates: Cath Placed During This Visit: yes, but has since been removed by the nurse Reason for Continuing Indwelling Catheter: Decision to DC Catheter Urinary Catheter Date of Insertion: 03/26/20 Urinary Catheter Time of Insertion: 11:35 Date Urinary Catheter Removed: 03/27/20 Time Urinary Catheter Discontinued: 05:55 Data : 03/29/20 10:05 03/29/20 05:20 Micro: Microbiology 03/26/20 12:00 Urine Culture - Final Urine,Clean Catch A&P Assessment and plan (1) Hypertension: Status: Acute Qualifiers: Hypertension type: essential hypertension Qualified Code(s): I10 - Essential (primary) hypertension (2) Diabetes mellitus: Status: Acute Qualifiers: Diabetes mellitus type: type 2 Diabetes mellitus fpc insulin use: without termite control servicer use Diabetes mellitus complication status: without complication Qualified Code(s): E11.9 - Type 2 diabetes mellitus without complications (3) Atrial fibrillation: Status: Acute Qualifiers: Atrial fibrillation type: unspecified Qualified Code(s): I48.91 - Unspecified atrial fibrillation (4) Congestive heart failure: Status: Acute Qualifiers: Heart failure type: unspecified Heart failure chronicity: chronic Qualified Code(s): I50.9 - Heart failure, unspecified (5) Complication involving orthopedic internal fixation device: Status: Acute Qualifiers: Internal fixation site: femur Device complication type: mechanical Mechanical complication type: displacement Encounter type: initial encounter Laterality: left Qualified Code(s): T84.125A - Displacement of internal fixation device of left femur, initial encounter Additional A&P Information 1. Status post left hip arthroplasty -the patient had a left hip arthroplasty done on 03/26/2020 and is currently doing well with it. She did have blood loss during the surgery but her hemoglobin is stable at this time. The patient's pain is currently well controlled. Continue with pain medications as scheduled. The patient has agreed to go to a rehab facility for rehabilitation of her hip. 2. Hypertension -the patient's blood pressure had been soft. Lisinopril will be decreased to 10 mg daily, amlodipine will be stopped, and carvedilol will be decreased to 12.5 mg twice a day. These may need to be increased again as an outpatient depending on her course. 3. Diabetes mellitus -okay to restart metformin upon discharge 4. Atrial fibrillation -currently mildly tachycardic. The patient is back on Coumadin and her INR is in a therapeutic range. 5. Congestive heart failure -the patient's ejection fraction was 55% in January of this year. We will be careful with any additional fluids, however she is currently stable. Okay to continue with Lasix. 6. Blood loss complicating surgery -so far we will not need to transfusion. We will follow hemoglobin to see if this is necessary. 7. Prophylaxis -SCDs for now. patient is back on Coumadin for prophylaxis Attestations Medical Necessity Statement*: The patient will be discharged today per Ortho Coding Level of Care Code Acute Continuous Miner for [facility] Diagnoses Hypertension I10 Hypertension type: essential hypertension Diabetes mellitus E11.9 Diabetes mellitus type: type 2 Diabetes mellitus termite control servicer insulin use: without termite control servicer use Diabetes mellitus complication status: without complication Atrial fibrillation I48.91 Atrial fibrillation type: unspecified Congestive heart failure I50.9 Heart failure type: unspecified Heart failure chronicity: chronic Complication involving orthopedic internal fixation device T84.125A Internal fixation site: femur Device complication type: mechanical Mechanical complication type: displacement Encounter type: initial encounter Laterality: left
[2020-03-29 11:06] LABS: Glucose Point of Care 230 mg/dL (70-110)
--- NOTE | 2020-03-29 12:16 | PC.NURSE ---
Report given to Heather MORGAN at [facility] at this time.
--- NOTE | 2020-03-29 13:09 | PC.NURSE ---
Reviewed patient discharge with patient at this time. Patient is being discharged to [facility] for rehabilitation. Patient went by private car to [facility] Patient's IV removed intact. Patient is A&Ox3. Respirations even and non-labored on room air.
--- NOTE | 2020-03-29 13:13 | PC.NURSE ---
Reviewed patient's discharge with patient at this time. Patient discharged to [facility] for rehabilitation. Patient is A&Ox3. Respirations even and non-labored on room air. Patient wheel chaired to private car to be driven to [facility]. Patent's IV was removed intact.
== END 2020-03-29 13:00 | disposition skilled nursing facility (03) | DRG 469 ==
LOC: ICU 15:58 → MEDSURG 03-27 10:53
PROVIDERS: Admitting Provider Orthopaedic Surgery; PCP Family Medicine; Visit Provider Orthopaedic Surgery
PROC: 0SPB04Z Removal of Internal Fixation Device from Left Hip Joint, Open Approach (ICD-10-PCS; CPT 20680; principal; 2020-03-26 07:00)
PROC: 0SPB04Z Removal of Internal Fixation Device from Left Hip Joint, Open Approach (ICD-10-PCS; CPT 27130; 2020-03-26 07:00)
DX: T84.125A Displacement of internal fixation device of left femur, initial encounter (principal); S72.142A Displaced intertrochanteric fracture of left femur, initial encounter for closed fracture; I50.32 Chronic diastolic (congestive) heart failure; D62 Acute posthemorrhagic anemia; I11.0 Hypertensive heart disease with heart failure; E11.9 Type 2 diabetes mellitus without complications; I48.91 Unspecified atrial fibrillation; Z79.84 Long term (current) use of oral hypoglycemic drugs; Z79.01 Long term (current) use of anticoagulants; M19.90 Unspecified osteoarthritis, unspecified site; E78.5 Hyperlipidemia, unspecified; E66.01 Morbid (severe) obesity due to excess calories; Z68.38 Body mass index [BMI] 38.0-38.9, adult; F41.9 Anxiety disorder, unspecified; Z87.891 Personal history of nicotine dependence; X58.XXXA Exposure to other specified factors, initial encounter; Y69 Unspecified misadventure during surgical and medical care
CPT/HCPCS: 12345; 36415; 36416; 51702; 73501; 73502; 76000; 80048; 80053; 81001; 82962; 85014; 85018; 85025; 85610; 86850; 86900; 86920; 87086; 88304; 96365; 96372; 97110; 97116; 97162; 97167; 97530; 97535; C1713; C1776; J0131; J0690; J1580; J1650; J1815; J2001; J2250; J2704; J3010; J3370; J3490; J7030; J7050; P9016

== ENCOUNTER 2020-04-07 20:23 | Inpatient (IN) | payer MEDICARE, OTHER, SELFPAY ==
[2020-04-07] VITALS (7 sets, daily range): BP systolic 80–113; BP diastolic 43–58; PULSE 84–96; RESP 14–24; TEMP 30–36.5; O2SAT 81–99; BMI 27.7
--- NOTE | 2020-04-07 20:29 | XR_ITS ---
WS: [id number] CHEST XRAY TECHNIQUE: Portable chest. CLINICAL INFORMATION: dyspnea COMPARISON: February 07, 2020 FINDINGS: Enteric tube below the diaphragm. Heart: Cardiomegaly. Lungs: Mild chronic emphysematous changes. No acute pulmonary infiltrates. Elevation left hemidiaphra gm with colonic interposition. Bones: Normal visualized bony structures. XR/XR chest 1V portable [id number] IMPRESSION: 1. Elevation left hemidiaphragm with colonic interposition. 2. Enteric tube with tip below the diaphragm. 3. No significant acute infiltrates.
--- NOTE | 2020-04-07 20:29 | CTR_ITS ---
PROCEDURE INFORMATION: Exam: CT Abdomen And Pelvis With Contrast Exam date and time: 04/07/2020 8:52 PM Age: 74 years old Clinical indication: Bloating; Abdominal pain; Generalized; Additional info: Abd pain TECHNIQUE: Imaging protocol: Computed tomography of the abdomen and pelvis with intravenous contrast. Radiation optimization: All CT scans at this facility use at least one of these dose optimization techniques: automated exposure control; mA and/or kV adjustment per patient size (includes targeted exams where dose is matched to clinical indication); or iterative reconstruction. Contrast material: OMNI 300; Contrast volume: 95 ml; Contrast route: INTRAVENOUS (IV); COMPARISON: CR XR hip LT 2-3V wo/w pel* [id number] 03/26/2020 7:27 PM RADIATION DOSE METRICS: Total DLP (mGy-cm): 1610 FINDINGS: Liver: Normal. No mass. Gallbladder and bile ducts: Normal. No calcified stones. No ductal dilation. Pancreas: Normal. No ductal dilation. Spleen: Normal. No splenomegaly. Adrenals: Normal. No mass. Kidneys and ureters: 14 mm right renal cyst has benign features. Follow-up is not necessary. No hydronephrosis. Stomach and bowel: Artifact from the left total hip replacement somewhat obscures the sigmoid colon. There is a prominent large bowel dilatation involving the ascending, transverse, and descending colon with the transition point at the junction of the sigmoid colon. There is rectal mucosal thickening. There is pneumatosis intestinalis of the ascending colon. Appendix: No evidence of appendicitis. Intraperitoneal space: Unremarkable. No free air. No significant fluid collection. Vasculature: Lower abdominal aorta is ectatic measuring 2.7 cm in AP dimension.Calcified plaque is present within multiple vascular structures. Lymph nodes: Unremarkable. No enlarged lymph nodes. Bladder: Unremarkable as visualized. Reproductive: There are comminuted fractures in the left greater and lesser trochanter of unknown chronicity. Bones/joints: Left total hip replacement. There are severe degenerative changes across the right hip joint. Degenerative changes are present in the visualized spine. Soft tissues: There is a small midline lower abdominal/pelvic ventral hernia containing fat fluid. There is no extrusion of bowel. There is a complex fluid collection in the soft tissues surrounding the left total hip prosthesis extending to the overlying soft tissues which is not completely visualized however measures approximately 17.2 x 10.5 cm in the craniocaudad/transverse dimensions. CT/CT abdomen pelvis w con* [id number] IMPRESSION: 1. There is a complex fluid collection in the soft tissues surrounding the left total hip prosthesis extending to the overlying soft tissues. Differential includes abscess and hematoma. 2. There are comminuted fractures in the left greater and lesser trochanters of unknown chronicity. 3. Distal large bowel obstruction with a transition point at the level the sigmoid colon. There is large bowel dilatation and pneumatosis intestinalis of the ascending colon. 4. There is rectal mucosal thickening consistent with proctitis. Follow-up to exclude neoplasm as clinically warranted. Radiation Dose CTDIVOL = (mGy): DLP = 1610 (mGy-cm)
--- NOTE | 2020-04-07 20:30 | ECG_ITS ---
[facility] Test Date: 2020-04-07 Pat Name: Darshana Puri Department: Room: Gender: Female Program Attendant: : 1945 Requested By: Giovana Briceño Order Number: [id number] Cecilia MD: Gigi Ortega M.D. Measurements Intervals [place] Rate: 85 P: IN: -1 QRS: -68 QRSD: 98 T: 71 QT: 421 QTc: 503 Interpretive Statements ATRIAL FIBRILLATION LOW QRS VOLTAGE IN EXTREMITY LEADS [QRS DEFLECTION < 0.5 mV IN LIMB LEADS] INFERIOR MYOCARDIAL INFARCTION , PROBABLY OLD [40+ ms Q WAVE AND/OR ST/T ABNORMALITY IN II/aVF] Compared to ECG 02/08/2020 00:57:39 Low QRS voltage now present Left-axis deviation no longer present Incomplete right bundle-branch block no longer present Myocardial infarct finding still present Electronically Signed On 04-08-2020 16:37:55 CDT by Gigi Ortega M.D. [id number]
--- NOTE | 2020-04-07 20:34 | W.ED.GIBLEED ---
HPI - GI Bleed General: Chief complaint: GI Bleed Stated complaint: Abd Distended, Hypotensive, GI Bleed Time Seen by Provider: 04/07/20 20:30 Source: patient and EMS Mode of arrival: EMS Limitations: no limitations History of Present Illness: HPI Narrative: 74-year-old female who had hip surgery 2 weeks ago. EMS was called the snf due to abdominal distention and pain. Patient is also had brown emesis. Patient denies any bloody emesis and she is had no blood in her stools. She does have some bleeding from her incision site. Denies any fever. Associated symptoms: Reports abdominal pain, nausea and vomiting; Denies chills, easy bruising, fever(s), headache(s) or rash Review of Systems Const: Denies: fever(s), chills, body aches or change in appetite Eyes: Denies: blurry vision or eye discomfort ENMT: Denies: throat pain or dental pain Card: Denies: chest pain Resp: Denies: dyspnea GI: Reports: abdominal pain, nausea and vomiting : Denies: dysuria Musc: Denies: neck pain or back pain Skin/Breast: Denies: rash Neuro: Denies: headache(s) Psych: Denies: depression Kade/Lymph: Denies: easy bruising All/Imm: Denies: urticaria PFSH ED PFSH: Medical History (Updated 04/07/20 @ 22:48 by Giovana Briceño MD) Atrial fibrillation Rate controlled Branchial cleft cyst Complication involving orthopedic internal fixation device Congestive heart failure Diabetes mellitus History of fracture of left hip Sciatica Surgical History (Updated 03/27/20 @ 07:27 by Mason Russell DO) H/O section H/O vein stripping History of appendectomy History of total left hip arthroplasty Family History Father Cancer Colon cancer - of this. Mother Broken hip Social History Smoking and tobacco status: former smoker Physical Exam Const: COMMON NORMALS: no acute distress, patient oriented x3 and healthy appearing HENMT: COMMON NORMALS: normocephalic and atraumatic HEAD & SCALP: normocephalic and atraumatic Eye: COMMON NORMALS: Equal, round and reactive pupils present and EOMs intact bilaterally PUPIL: Yes Equal, round and reactive pupils present Neck/C-Spine: COMMON NORMALS: full ROM and supple Chest: COMMONS NORMALS: normal inspection of the chest and normal palpation of entire chest wall Resp: COMMON NORMALS: normal respiratory effort, No retractions, No use of accessory muscles and clear to auscultation bilaterally AUSCULTATION: clear to auscultation bilaterally Cardio: COMMON NORMALS: regular rate, regular rhythm and No murmurs present (Cardio) RATE: regular rate RHYTHM: regular rhythm GI: COMMON NORMALS: Normal to inspection, nondistended, normoactive bowel sounds present and no masses OTHER: Diffuse tenderness with distention of her abdomen and decreased bowel sounds : OTHER: Stool is brown and Hemoccult negative Extremity: COMMON NORMALS: normal to inspection and full ROM OTHER: Incisions clean with no signs of infection. She does have 1 small portion that is oozing blood Neuro: COMMON NORMALS: patient oriented x3, moves all extremities and no focal motor deficits Psych: COMMON NORMALS: mental status grossly normal, Normal thought process present and cooperative THOUGHT PROCESS: Normal thought process present Skin: COMMON NORMALS: no rashes or lesions noted and no wounds GENERAL SKIN EXAM: no rashes or lesions noted Course Vital Signs: Vital signs: Vital Signs Temperature 97.7 F 04/07/20 20:27 Pulse Rate 88 04/07/20 22:00 Respiratory Rate 24 H 04/07/20 22:00 Blood Pressure 113/52 04/07/20 22:00 Pulse Oximetry 96 04/07/20 22:00 MDM - GI Bleed MDM Narrative: Medical decision making narrative: Patient presents here with septic shock versus hemorrhage. Patient's initial blood pressures in the 80s and is now improved to the 100 after IV fluids. Patient does have a large hematoma to left thigh likely from her elevated INR. Patient's INR here was 12. I did reverse that with FFP along with vitamin K. Will give patient 1 unit of blood as well. Patient has an elevated white count and lactate. CT scan shows small bowel obstruction. Patient pain is much improved after NG tube placement. I did speak to Dr. Lobo who is consulted. There are some concerns for ischemic bowel and will monitor her pain and lactate. Patient's INR has to be reversed as well. Patient started on IV antibiotics. I spoke to Dr. Horowitz of orthopedics and will have Dr. Russell consulted for the hematoma from surgery. Dr. Weems seen the patient in the ER and will admit to the ICU. Lab Data: Labs: Lab Results 04/07/20 04/07/20 04/07/20 Range/Units 20:35 20:35 20:35 WBC 24.1 H (4.0-10.0) 10^3/ uL RBC 3.40 L (4.1-5.3) 10^6/u L Hgb 9.7 L (11.5-15.3) g/dL Hct 32.3 L (37.0-47.0) % MCV 95.0 (81-99) fL MCH 28.5 (28.0-34.0) pg MCHC 30.0 (30.0-36.0) g/dL RDW 15.3 H (12.1-15.1) % Plt Count 551 H (130-400) 10^3/c mm MPV 9.6 (7.4-10.4) fL Neut % (Auto) 88.7 % Lymph % (Auto) 4.2 % [place] % (Auto) 6.3 % Eos % (Auto) 0.0 % Baso % (Auto) 0.1 % Neut # (Auto) 21.37 H (1.8-7.7) 10^3/u L Lymph # (Auto) 1.0 (0.8-4.8) 10^3/u L [place] # (Auto) 1.5 H (0.2-0.9) 10^3/u L Eos # (Auto) 0.0 (0.0-0.8) 10^3/u L Baso # (Auto) 0.0 (0.0-0.1) 10^3/u L Nucleated RBC % (a uto) 0 % Nucleated RBCs # 0.0 /100WBC PT 102.10 H (10.5-13.3) SECO NDS INR 12.80 H* (0.8-1.2) Sodium 136 (136-145) mmol/L Potassium 3.0 L (3.5-5.1) mmol/L Chloride 93 L (98-107) mmol/L Carbon Dioxide 26 (22-29) mmol/L Anion Gap 20.0 H (5-19) BUN 33 H (8-23) mg/dL Creatinine 2.4 H (0.5-0.9) mg/dL Glucose 200 H (65-115) mg/dL Calculated Osmolal ity 285 (285-295) mOsm/k g Lactate (0.5-2.2) mmol/L Calcium 7.3 L (8.5-10.5) mg/dL Total Bilirubin 0.3 (0.15-1.2) mg/dL AST 10 (0-32) U/L ALT 9 (0-33) U/L Alkaline Phosphata se 114 H (35-105) IU/L Total Protein 6.0 L (6.6-8.7) g/dL Albumin 2.7 L (3.5-5.2) g/dL Globulin 3.3 (1.3-4.6) g/dL 04/07/20 04/07/20 Range/Units 20:35 21:54 WBC (4.0-10.0) 10^3/ uL RBC (4.1-5.3) 10^6/u L Hgb 9.2 L (11.5-15.3) g/dL Hct 30.9 L (37.0-47.0) % MCV (81-99) fL MCH (28.0-34.0) pg MCHC (30.0-36.0) g/dL RDW (12.1-15.1) % Plt Count (130-400) 10^3/c mm MPV (7.4-10.4) fL Neut % (Auto) % Lymph % (Auto) % [place] % (Auto) % Eos % (Auto) % Baso % (Auto) % Neut # (Auto) (1.8-7.7) 10^3/u L Lymph # (Auto) (0.8-4.8) 10^3/u L [place] # (Auto) (0.2-0.9) 10^3/u L Eos # (Auto) (0.0-0.8) 10^3/u L Baso # (Auto) (0.0-0.1) 10^3/u L Nucleated RBC % (a uto) % Nucleated RBCs # /100WBC PT (10.5-13.3) SECO NDS INR (0.8-1.2) Sodium (136-145) mmol/L Potassium (3.5-5.1) mmol/L Chloride (98-107) mmol/L Carbon Dioxide (22-29) mmol/L Anion Gap (5-19) BUN (8-23) mg/dL Creatinine (0.5-0.9) mg/dL Glucose (65-115) mg/dL Calculated Osmolal ity (285-295) mOsm/k g Lactate 3.1 H (0.5-2.2) mmol/L Calcium (8.5-10.5) mg/dL Total Bilirubin (0.15-1.2) mg/dL AST (0-32) U/L ALT (0-33) U/L Alkaline Phosphata se (35-105) IU/L Total Protein (6.6-8.7) g/dL Albumin (3.5-5.2) g/dL Globulin (1.3-4.6) g/dL Imaging Data^: CT Abd/Pel: Attestation: I personally reviewed and interpreted this imaging study as follows: Radiologist's impression: [place] [address] CT Scan Report Signed with Addenda Patient: Darshana Puri Unit #: [id number] : 1945 Age/Sex: 74 / F ADM Date: 04/07/20 Loc: ER Room/Bed: Attending Dr: Ordering Provider/Ordering MD: Giovana Briceño MD Date of Service: 04/07/20 Procedure(s): CT abdomen pelvis w con* [id number] Accession Number(s): [id number] Report Number: [id number]/CT abdomen pelvis w con* [id number] CRITICAL RESULT: The study was personally discussed on the telephone with giovana Lemus on 04/07/2020 9:41 PM CDT. The results were understood and acknowledged. Radiation Dose CTDIVOL = (mGy): DLP = 1610 (mGy-cm) Addendum Dictated By: La Seay MD Addendum Signed By: La Seay MD Signed Date/Time: 04/07/202141 Addendum Cosigned By: PROCEDURE INFORMATION: Exam: CT Abdomen And Pelvis With Contrast Exam date and time: 04/07/2020 8:52 PM Age: 74 years old Clinical indication: Bloating; Abdominal pain; Generalized; Additional info: Abd pain TECHNIQUE: Imaging protocol: Computed tomography of the abdomen and pelvis with intravenous contrast. Radiation optimization: All CT scans at this facility use at least one of these dose optimization techniques: automated exposure control; mA and/or kV adjustment per patient size (includes targeted exams where dose is matched to clinical indication); or iterative reconstruction. Contrast material: OMNI 300; Contrast volume: 95 ml; Contrast route: INTRAVENOUS (IV); COMPARISON: CR XR hip LT 2-3V wo/w pel* [id number] 03/26/2020 7:27 PM RADIATION DOSE METRICS: Total DLP (mGy-cm): 1610 FINDINGS: Liver: Normal. No mass. Gallbladder and bile ducts: Normal. No calcified stones. No ductal dilation. Pancreas: Normal. No ductal dilation. Spleen: Normal. No splenomegaly. Adrenals: Normal. No mass. Kidneys and ureters: 14 mm right renal cyst has benign features. Follow-up is not necessary. No hydronephrosis. Stomach and bowel: Artifact from the left total hip replacement somewhat obscures the sigmoid colon. There is a prominent large bowel dilatation involving the ascending, transverse, and descending colon with the transition point at the junction of the sigmoid colon. There is rectal mucosal thickening. There is pneumatosis intestinalis of the ascending colon. Appendix: No evidence of appendicitis. Intraperitoneal space: Unremarkable. No free air. No significant fluid collection. Vasculature: Lower abdominal aorta is ectatic measuring 2.7 cm in AP dimension.Calcified plaque is present within multiple vascular structures. Lymph nodes: Unremarkable. No enlarged lymph nodes. Bladder: Unremarkable as visualized. Reproductive: There are comminuted fractures in the left greater and lesser trochanter of unknown chronicity. Bones/joints: Left total hip replacement. There are severe degenerative changes across the right hip joint. Degenerative changes are present in the visualized spine. Soft tissues: There is a small midline lower abdominal/pelvic ventral hernia containing fat fluid. There is no extrusion of bowel. There is a complex fluid collection in the soft tissues surrounding the left total hip prosthesis extending to the overlying soft tissues which is not completely visualized however measures approximately 17.2 x 10.5 cm in the craniocaudad/transverse dimensions. CT/CT abdomen pelvis w con* [id number] IMPRESSION: 1. There is a complex fluid collection in the soft tissues surrounding the left total hip prosthesis extending to the overlying soft tissues. Differential includes abscess and hematoma. 2. There are comminuted fractures in the left greater and lesser trochanters of unknown chronicity. 3. Distal large bowel obstruction with a transition point at the level the sigmoid colon. There is large bowel dilatation and pneumatosis intestinalis of the ascending colon. 4. There is rectal mucosal thickening consistent with proctitis. Follow-up to exclude neoplasm as clinically warranted. EKG Data^: EKG 1: Attestation: I personally reviewed and interpreted this EKG as follows: EKG interpretation date: 04/07/20 EKG interpretation time: 20:44 Interpretation: afib hr [address] or t wave abnormalities qrs 98 qtc 464 Critical Care Time Critical Care Time: Critical Care Time: Yes Total Critical Care Time: 36 Attestation: This case had a high probability of a clinically significant, sudden, or life threatening deterioration of this patient's condition which required my full and direct attention, intervention and personal management. Discharge Plan Discharge Patient Disposition: Admitted As Inpatient Clinical Impression: Small bowel obstruction, Septic shock, Elevated INR Hematoma of leg Qualifiers: Encounter type: initial encounter Laterality: left Qualified Code(s): S80.12XA - Contusion of left lower leg, initial encounter Condition: Stable Referrals: Reece Garcia MD [Primary Care Provider] - Coding Level of Care Code ED Car Parker for g Fwd Exam Comprehensive
[2020-04-07] MEDS: sodium chloride 0.9% 1,000 ML 999 ML IV ×2 (20:42→22:13)
[2020-04-07 20:46] LABS: Basophils % 0.1 %; Hematocrit 32.3 % (37.0-47.0); Hemoglobin 9.7 g/dL (11.5-15.3); Lymphocytes % 4.2 %; Mean Corpuscular Hemoglobin 28.5 pg (28.0-34.0); Mean Platelet Volume 9.6 fL (7.4-10.4); Monocytes # 1.5 10^3/uL (0.2-0.9); Monocytes % 6.3 %; Neutrophils # 21.37 10^3/uL (1.8-7.7); Neutrophils % 88.7 %; Nucleated Red Blood Cells % 0 %; Platelet Count 551 10^3/cmm (130-400); Red Cell Distribution Width 15.3 % (12.1-15.1); White Blood Count 24.1 10^3/uL (4.0-10.0)
[2020-04-07 21:01] LABS: Lactate (Lactic Acid level) 3.1 mmol/L (0.5-2.2)
[2020-04-07 21:02] LABS: Alanine Aminotransferase 9 U/L (0-33); Albumin Level 2.7 g/dL (3.5-5.2); Alkaline Phosphatase 114 IU/L (35-105); Aspartate Amino Transferase 10 U/L (0-32); Blood Urea Nitrogen 33 mg/dL (8-23); Calcium 7.3 mg/dL (8.5-10.5); Carbon Dioxide 26 mmol/L (22-29); Chloride 93 mmol/L (98-107); Globulin 3.3 g/dL (1.3-4.6); Glucose 200 mg/dL (65-115); Osmolality Calculated 285 mOsm/kg (285-295); Sodium 136 mmol/L (136-145); Total Bilirubin 0.3 mg/dL (0.15-1.2)
[2020-04-07] MEDS: iohexol 300 mg/mL 100 mL Btl IV (21:10)
--- NOTE | 2020-04-07 21:11 | PC.NURSE ---
Notified Dr. Briceño of critical INR and PT, no orders given at this time
[2020-04-07 22:00] LABS: Hematocrit 30.9 % (37.0-47.0); Hemoglobin 9.2 g/dL (11.5-15.3)
[2020-04-07] MEDS: phytonadione (ADULT) 10 mg/mL Ampule 1 mL IV (22:37)
[2020-04-07] MEDS: vancomycin 1,000 MG in sodium chloride 0.9% 250 ML 250 MG IV (22:37)
[2020-04-07] MEDS: piperacillin-tazobactam 3.375 GM in sodium chloride 0.9% (plus) 50 ML IV (22:38)
[2020-04-07 23:03] LABS: Partial Thromboplastin Time 66.5 SECONDS (23.9-36.7)
[2020-04-08] VITALS (215 sets, daily range): BP systolic 56–127; BP diastolic 36–79; PULSE 0–102; RESP 0–38; TEMP 36.2–36.6; O2SAT 61–100; BMI 16.1
--- NOTE | 2020-04-08 00:27 | P.HP_ITS ---
Providers/Chief Complaint Admitting Physician: Yuni Weems MD Primary Care Provider: Reece Garcia MD Chief Complaint: Abd Distended, Hypotensive, GI Bleed History of Present Illness Darshana Puri is a 74 year old female who underwent a left hip hemiarthroplasty on March 26. She had originally had a fall sustaining a hip fracture in January. It was initially pinned but she subsequently required revision. She has been staying at the [facility]way for rehabilitation. It was reported that she was having some dark-colored emesis and abdominal distention along with abdominal pain. She has had some constipation. She was ultimately found to have evidence of large bowel obstruction on CT imaging and had NG tube placement in the ER. With this she did sustain some relief and states that she is feeling better from this standpoint. The case was discussed with Dr. Lobo who will see her in consultation. Also upon arrival in the emergency room, patient was noted to have some bleeding from her incision site at her left hip. Work-up revealed an INR of 12. She is chronically on Coumadin for a history of atrial fibrillation and it was restarted postoperatively. She was taking 5 mg most days and 10 mg on some other days according to the [facility]-way records. Upon discharge from the hospital on March 29, she was given a prescription for cefuroxime. INR at the time of discharge on 03/29 was 2.26. Patient received some vitamin K and was started on some FFP in the emergency room. Additionally unit of blood was ordered. She had saturated bedsheet from the bleeding from her left hip. Dr. Horowitz was contacted by ER physician and he will let Dr. Russell know about the patient's admission in the morning. Patient was hypotensive in the emergency room though initially seemed to respond to fluids. She did have an elevated lactic acid. She was found to have m ultiple other abnormalities and is being admitted to the intensive care unit for close monitoring. She reports feeling weak and tired. She has had the vomiting, abdominal pain and constipation. No recent fevers. No other areas of bleeding. Does not recall seeing blood in her stools or black tarry stools. She is incontinent of urine. Review of Systems Const: Reports: chills and change in appetite; Denies: fever(s) Eyes: Denies: change in vision ENMT: Reports: dry mouth; Denies: throat pain or nasal congestion Card: Denies: chest pain or palpitations Resp: Denies: dyspnea, productive cough or non-productive cough GI: Reports: abdominal pain, nausea, vomiting and constipation; Denies: diarrhea : Reports: urinary incontinence; Denies: difficulty voiding or urinary frequency Musc: Reports: extremity pain (Hip has been improving from a pain standpoint) Skin/Breast: Reports: other (Surgical site healing); Denies: pruritus Neuro: Reports: weakness in extremities and dizziness; Denies: headache(s) or numbness in extremities Psych: Denies: anxiety or depression Kade/Lymph: Reports: easy bruising and easy bleeding Medications/Allergies Home Medications Medication Instructions Recorded Confirmed Last Taken Type acetaminophen [Tylenol] 325 mg PO QID PRN 02/07/20 04/08/20 03/25/20 History citalopram [Celexa] 40 mg PO DAILY 02/07/20 03/26/20 03/25/20 History digoxin 0.25 mcg PO DAILY 02/07/20 03/26/20 03/25/20 History ferrous sulfate 65 mg PO BID 02/07/20 03/26/20 03/25/20 History furosemide 40 mg PO DAILY 02/07/20 03/26/20 03/25/20 History gabapentin 100 mg PO BID 02/07/20 03/26/20 03/25/20 History metformin See Rx Instructions .ROUTE .COMPLEX 02/07/20 03/26/20 03/24/20 History potassium chloride 20 meq PO DAILY 02/07/20 03/26/20 03/25/20 History simvastatin 40 mg PO DAILY 02/07/20 03/26/20 03/25/20 History Coumadin 5 mg PO DAILY 03/22/20 03/22/20 03/22/20 History carvedilol 12.5 mg PO BID #60 tab 03/29/20 04/08/20 Unknown Rx cefuroxime axetil 500 mg PO BID 7 Days #14 tab 03/29/20 Unknown Rx lisinopril 10 mg PO DAILY #30 tab 03/29/20 Unknown Rx oxycodone-acetaminophen 1 tab PO Q4H PRN #40 tab 03/29/20 Unknown Rx Allergies Allergy/AdvReac Type Severity Reaction Status Date / Time meperidine [From Demerol] Allergy Unknown Verified 03/22/20 11:21 PFSH Acute PFSH: Medical History Atrial fibrillation Rate controlled Branchial cleft cyst Congestive heart failure Diabetes mellitus Dyslipidemia Hypertension Sciatica Surgical History H/O section H/O vein stripping History of appendectomy History of fracture of left hip (~01/2020) with pinning History of total left hip arthroplasty (~02/2020) with revision 02/2020 Family History Father Cancer Colon cancer - of this. Mother Broken hip Social History (Updated 04/08/20 @ 04:07 by Yuni Weems MD) Smoking and tobacco status: former smoker Alcohol intake: never Substance/Drug Use: never Housing: Skilled Nursing Marital status: Vitals/I&O/Wt Last Vital Signs Temp 97.3 F L 04/08/20 00:00 Pulse 87 04/08/20 00:10 Resp 24 H 04/08/20 00:10 BP 91/52 04/08/20 00:10 Pulse Ox 94 04/08/20 00:10 04/07/20 04/07/20 04/08/20 14:59 22:59 06:59 Intake Total 1000 / 1000 Balance 1000 / 1000 Weight last 48 hrs Weight 97.976 kg Physical Exam Const: OTHER: Sleepy but awakens easily, answers simple questions, knows she is in the hospital. Quick to fall back asleep. HENMT: OTHER: Normocephalic, dry mucous membranes Eye: OTHER: Pupils are reactive bilaterally, extraocular movements are intact Neck/C-Spine: OTHER: Supple Resp: OTHER: Clear to auscultation bilaterally anteriorly without any accessory muscle use noted, mildly tachypneic, no Rales or wheezes Cardio: OTHER: Irregular rhythm, distant heart sounds, no murmur noted GI: OTHER: Abdomen rotund, tender to palpation throughout, some rebound tenderness, not tympanic, decreased but present bowel sounds in both lower quadrants : OTHER: Normal external genitalia Extremity: NARRATIVE EXTREMITY EXAM: Chronic stasis changes noted to both lower extremities. Currently no pitting edema distally. Left hip still has claire in place from him arthroplasty. There is edema around the surgical site. ABD pads are on top of this and area of bleeding was noted on the pad with a blue marker. Frederick wrap was around this and replaced. At the time of my evaluation, no oozing of blood noted. I believe I see a stitch in the distal portion of the proximal half of the surgical incision site. There is some bruising visible more so proximally than what I can see distally around this. Bruising noted to the right knee area. Neuro: OTHER: Face symmetric, speech soft but clear, moves all extremities but generally weak Skin: NARRATIVE SKIN EXAM: Patient was initially quite pale but has staff after a unit of blood. She has chronic hyperpigmented areas, chronic stasis changes and surgical site changes as noted above. There are scattered bruises. Data : 04/08/20 02:45 04/07/20 20:35 Other Labs: Liver Function 04/07/20 Range/Units 20:35 Total Bilirubin 0.3 (0.15-1.2) mg/dL AST 10 (0-32) U/L ALT 9 (0-33) U/L Alkaline Phosphatase 114 H (35-105) IU/L Albumin 2.7 L (3.5-5.2) g/dL Laboratory Tests 04/07/20 04/07/20 04/07/20 20:35 20:35 20:35 PT 102.10 H INR 12.80 H* APTT 66.5 H Lactate 3.1 H Micro: Microbiology 04/07/20 20:35 Blood Culture - Preliminary Blood SPECIMEN COLLECTED 04/07/20 22:24 Blood Culture - Preliminary Blood SPECIMEN COLLECTED CXR: I personally reviewed and interpreted this imaging study as follows: My impression: Chest x-ray per my interpretation with elevated left hemidiaphragm secondary to gastric/bowel distention. Film is rotated. No acute infiltrate noted though appears to have some atelectasis at the left base. Other data: Echo from January with estimated EF 55%, poor quality A&P Assessment and plan (1) Shock: Currently not clear to me if this is hypovolemic shock from bl eeding/hematoma at the left thigh and potentially in the abdomen versus septic shock related to infectious process most likely at the abdomen related to the bowel obstruction. Has leukocytosis, lactic acidosis, acute renal failure, coagulopathy (though on anticoagulation) presently. Abdomen is certainly a potential source of infection related to obstructive process. Chest x-ray per me does not show definite infection. Urinalysis is still pending. Left thigh just appears to be bleeding without evidence of any purulent material around it. Patient is not tachycardic or febrile. She has been tachypneic with occasional drop in saturation particularly since blood was started. Status: Acute (2) Large bowel obstruction: Status: Acute (3) Elevated INR: Status post vitamin K and 2 units of FFP ordered to the emergency room. On anticoagulation chronically due to atrial fibrillation. Status: Acute (4) Hematoma of leg: Had active bleeding upon presentation to the ED, status post a single [id number] stitch towards the more proximal end of the surgical incision site almost near the midline of the surgical incision as well as wrapping with an Frederick wrap with at least control of external indication of bleeding. Status: Acute Qualifiers: Encounter type: initial encounter Laterality: left Qualified Code(s): S80.12XA - Contusion of left lower leg, initial encounter (5) Acute blood loss anemia: Receiving first unit of blood currently Status: Acute (6) Acute renal failure: Feel secondary to ATN from hypotension plus or minus effects of medications including diuretic therapy and FREDERICK inhibitor Status: Acute Qualifiers: Acute renal failure type: with acute tubular necrosis Qualified Code(s): N17.0 - Acute kidney failure with tubular necrosis (7) History of total left hip arthroplasty: Done by Dr. Russell on March 26. Original hip fracture occurred in January. She had pinning of the same hip on February 07. Status: Chronic (8) Diabetes mellitus: Chronically on metformin Status: Chronic Qualifiers: Diabetes mellitus complication status: with hyperglycemia Diabetes mellitus ocean transportation intermediary insulin use: without senior care use Diabetes mellitus type: type 2 Qualified Code(s): E11.65 - Type 2 diabetes mellitus with hyperglycemia (9) Atrial fibrillation: Chronic, usually on digoxin and carvedilol Status: Chronic Qualifiers: Atrial fibrillation type: unspecified Qualified Code(s): I48.91 - Unspecified atrial fibrillation (10) Congestive heart failure: Most recent echo from January 2020 showed an estimated ejection fraction of 55% though the study was of suboptimal quality due to atrial fibrillation. She had moderate biatrial enlargement and trace mitral regurgitation noted. Status: Chronic Qualifiers: Heart failure chronicity: chronic Heart failure type: unspecified Qualified Code(s): I50.9 - Heart failure, unspecified (11) Hypertension: Historically with hypertension treated with carvedilol, Lasix, lisinopril Status: Chronic Qualifiers: Hypertension type: essential hypertension Qualified Code(s): I10 - Essential (primary) hypertension (12) Dyslipidemia: Chronically on statin therapy Status: Chronic (13) Protein-calorie malnutrition, moderate: Status: Chronic (14) At risk for falls: Status: Chronic Additional A&P Information Hypokalemia Hypocalcemia Hypoalbuminemia Inpatient admission to the ICU Dr. Lobo consulted for bowel obstruction Dr. Russell consulted, via discussion with Dr. Horowitz, for secondary hematoma post recent hemiarthroplasty of hip Continue vancomycin and Zosyn empirically Repeat lactic acid NG tube to low intermittent suction N.p.o. currently Check ABG Hold Coumadin Status post 10 mg vitamin K in the emergency room Status post 2 units of FFP thus far Status post 1 unit of blood Recheck INR Will give additional 500 mL normal saline bolus but working to have to go on and start her on some Levophed Hold all nephrotoxic medications or adjust dosages appropriately Stat digoxin level Check magnesium, replace potassium, check ionized calcium Cates catheter for close monitoring of urine output in the setting of acute renal failure Monitor overall volume status closely Serial H&H Additional transfusion as needed Telemetry monitoring Presently having to hold carvedilol secondary to hypotension and impending digoxin level; may have to hold digoxin as well which I am anticipating. If not able to rate control with either medication will have to watch for development of RVR. Check CK level, currently holding statin Hold metformin, sliding scale insulin for diabetes presently Have held iron sulfate, citalopram and gabapentin simply because of n.p.o. status currently Dietitian consultation for nutritional support once able to take oral intake Depending on clinical course may have to consider TPN I was told that a figure 8 suture was placed in the emergency room though I am not seeing specific documentation of such. I do see what looks to be most likely to be the end of a dissolvable suture in between some of the claire that are currently present. I am hesitant to do much probing currently with elevation in the INR. Monitor respiratory status for acute change. Anticipate disposition back to skilled facility Upon discharge will need close monitoring of INR When medically stabilized this will need resumption of physical therapy for her hip PPI for GI prophylaxis Currently patient with high risk of bleeding due to elevation in INR but once INR normalizes and there is no immediate need for surgical intervention either for the abdomen or the left hip can consider initiation of pharmacological DVT prophylaxis. For now will keep her with some IPC's. Anticipate discharge back to a skilled facility when medically stable To be allowed natural per records and discussion with patient's by nursing staff Plans discussed with nursing staff as well as with patient. She was given an opportunity to ask questions. I did not get a chance to personally talk to the patient's tonelver but he is aware of her hospitalization and multiple acute issues. Attestations Medical Necessity Statement*: Anticipated stay greater than 2 midnights in a patient with multiple issues as noted above. She is at high risk of rapid clinical decline up to and including the possibility of . 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 [employer] Fwd Diagnoses Shock R57.9 Large bowel obstruction K56.609 Elevated INR R79.1 Hematoma of leg S80.12XA Encounter type: initial encounter Laterality: left Acute blood loss anemia D62 Acute renal failure N17.0 Acute renal failure type: with acute tubular necrosis History of total left hip arthroplasty Z96.642 Diabetes mellitus E11.65 Diabetes mellitus complication status: with hyperglycemia Diabetes mellitus ocean transportation intermediary insulin use: without ocean transportation intermediary use Diabetes mellitus type: type 2 Atrial fibrillation I48.91 Atrial fibrillation type: unspecified Congestive heart failure I50.9 Heart failure chronicity: chronic Heart failure type: unspecified Hypertension I10 Hypertension type: essential hypertension Dyslipidemia E78.5 Protein-calorie malnutrition, moderate E44.0 At risk for falls Z91.81
[2020-04-08 01:03] LABS: Glucose Point of Care 158 mg/dL (70-110)
[2020-04-08] MEDS: sodium chloride 0.9% 500 ML 999 ML IV ×2 (01:11→04:58)
--- NOTE | 2020-04-08 01:46 | PC.NURSE ---
called to hospitalist at 0030 with hypotension concerns and questions on blood. MD instructs RN to give all blood products.
--- NOTE | 2020-04-08 01:47 | PC.NURSE ---
call to hospitalist with hypotension concerns. MD orders 500cc bolus.
--- NOTE | 2020-04-08 02:49 | PC.PHAR ---
Vancomycin is dosed at 1000mg IVPB every 24 hours to produce a predicted trough level of 17.95 (population based pharmacokinetic analysis). A trough level has been ordered from the lab to be obtained before the fourth dose to confirm and adjust if needed. The Zosyn is dosed at 3.375gm IVPB every 8 hours, each dose to be infused over 4 hours per extended infusion protocol.
[2020-04-08 02:57] LABS: Basophils # 0.1 10^3/uL (0.0-0.1); Basophils % 0.2 %; Hematocrit 31.6 % (37.0-47.0); Hemoglobin 9.6 g/dL (11.5-15.3); Lymphocytes # 0.8 10^3/uL (0.8-4.8); Lymphocytes % 3.1 %; Mean Corpuscular HGB Conc 30.4 g/dL (30.0-36.0); Mean Corpuscular Hemoglobin 28.3 pg (28.0-34.0); Mean Corpuscular Volume 93.2 fL (81-99); Mean Platelet Volume 9.4 fL (7.4-10.4); Monocytes # 1.6 10^3/uL (0.2-0.9); Monocytes % 6.3 %; Neutrophils # 22.58 10^3/uL (1.8-7.7); Neutrophils % 89.8 %; Nucleated Red Blood Cells % 0 %; Platelet Count 376 10^3/cmm (130-400); Red Blood Count 3.39 10^6/uL (4.1-5.3); Red Cell Distribution Width 15.4 % (12.1-15.1); White Blood Count 25.1 10^3/uL (4.0-10.0)
[2020-04-08] MEDS: sodium chloride 0.9% 500 ML IV (03:00)
[2020-04-08 03:02] LABS: INR 1.58 (0.8-1.2)
[2020-04-08 03:08] LABS: Lactate (Lactic Acid level) 1.3 mmol/L (0.5-2.2)
[2020-04-08 03:12] LABS: Digoxin 1.3 ng/mL (0.6-1.2)
[2020-04-08] MEDS: sodium chlor 0.9% + KCl 20 mEq 20 MEQ/1,000 ML BAG 125 MEQ IV ×2 (03:28→11:35)
[2020-04-08 04:25] LABS: Add Urine Microscopic? YES; Bilirubin Urine 1+ (NEGATIVE); Blood Urine Neg (Negative); Glucose Urine UA Norm (Normal); Ketones Urine Negative (Negative); Leukocyte Esterase Urine Negative (Negative); Nitrate Urine Negative (Negative); Protein Urine Neg (Negative); RBC Urine 0-4 /hpf (0-2); Urine Appearance SL Hazy (CLEAR); Urine Color Dark Yellow (Yellow); Urobilinogen Urine Norm (Negative); pH Urine 5 (5-7)
[2020-04-08 04:26] LABS: Add Urine Culture? No; Bacteria Urine 1+; Hyaline Casts Urine 25-40; Mucus Urine 2+
[2020-04-08 04:37] LABS: ABG PCO2 80.8 mmHg (35-45); ABG PH Result 7.14 (7.35-7.45); Arterial Blood Gas Hematocrit 31.4 % (37-47); Base Excess ABG -2.8 mmol/L (-2.0-2.0); Blood Gas Allen Test Pos; Blood Gas Sample Site Brachial, left; Blood Gas Sample Type Arterial; HCO3 ABG 27.4 mmol/L (22-26); Oxygen Device NC
--- NOTE | 2020-04-08 05:36 | P.CONIM_ITS ---
Providers/Reason For Consult Consulting Physican/Specialty*: Alphonso Lobo MD Reason for Consult*: Abdominal distention Attending Physician: Yuni Weems MD Primary Care Provider: Reece Garcia MD History of Present Illness History of Present Illness Chief complaint Abdominal pain HPI: Mrs.Doris Ashanti Puri is a pleasent 74 year old female with multiple medical comorbidities, patient presented to the emergency department it was reported that the patient had dark-colored emesis and abdominal distention associated with abdominal pain, patient had recently left hip arthroplasty about 12 days ago as she did fall and sustained a hip fracture back in January, further evaluation in the emergency department that showed lab values of INR of 12 and a lactic acid of 3.1 that was followed by obtaining a CT scan of the abdomen and pelvis that showed large bowel obstruction with pneumatosis of the right side of the colon and concern for rectal neoplastic lesion that is causing bowel obstruction, patient was admitted on the hospitalist service and Dr. Weems and the ICU the team continuedto work on resuscitating the patient with administration of FFP's IV fluids and patient ultimately was placed on pressors as she is currently on Levophed and vasopressin, hemodynamically unstable, general surgery was consulted initially for evaluation of patient's abdominal distention and the findings on the CT scan yet with a high INR she would not be an appropriate candidate for surgical intervention given the high risk of bleeding and demise. Patient was seen and evaluated in ICU bed 3, she is currently on a BiPAP she is not able to give clear directions about her potential surgery as I did discuss with her such an option. Awaiting on her spouse for arrival Review of Systems General: Reports: ROS unobtainable due to medical condition Meds/Allergies Home Medications and Allergies Home Medications Medication Instructions Recorded Confirmed Last Taken Type acetaminophen [Tylenol] 325 mg PO QID PRN 02/07/20 04/08/20 03/25/20 History citalopram [Celexa] 40 mg PO DAILY 02/07/20 04/08/20 03/25/20 History digoxin 0.25 mcg PO DAILY 02/07/20 04/08/20 03/25/20 History ferrous sulfate 324 mg PO BID 02/07/20 04/08/20 03/25/20 History furosemide 40 mg PO DAILY 02/07/20 04/08/20 03/25/20 History gabapentin 100 mg PO BID 02/07/20 04/08/20 03/25/20 History metformin See Rx Instructions .ROUTE .COMPLEX 02/07/20 04/08/20 03/24/20 History potassium chloride 20 meq PO DAILY 02/07/20 04/08/20 03/25/20 History simvastatin 40 mg PO DAILY 02/07/20 04/08/20 03/25/20 History warfarin [Coumadin] 5 mg PO DAILY 03/22/20 04/08/20 03/22/20 History carvedilol 12.5 mg PO BID #60 tab 03/29/20 04/08/20 Unknown Rx lisinopril 10 mg PO DAILY #30 tab 03/29/20 04/08/20 Unknown Rx oxycodone-acetaminophen 1 tab PO Q4H PRN #40 tab 03/29/20 04/08/20 Unknown Rx bisacodyl 10 mg MS DAILY PRN 04/08/20 04/08/20 Unknown History magnesium hydroxide [Milk of 30 ml PO DAILY PRN 04/08/20 04/08/20 Unknown History Magnesia] polyethylene glycol 3350 [Miralax] 17 g PO DAILY PRN 04/08/20 04/08/20 Unknown History sennosides-docusate sodium 8.6 tab PO BID PRN 04/08/20 04/08/20 Unknown History [Senna-S] simethicone 125 mg PO QID PRN 04/08/20 04/08/20 Unknown History sodium phosphates [Enema 1 ml MS DAILY PRN 04/08/20 04/08/20 Unknown History Disposable] tuberculin PPD [Tubersol] 0.1 ml INTRADERMAL ONCE 04/08/20 04/08/20 Unknown History Allergies Allergy/AdvReac Type Severity Reaction Status Date / Time meperidine [From Demerol] Allergy Unknown Verified 04/08/20 16:43 Current Medications Current Medications Generic Name Dose Route Start Last Admin Trade Name Freq PRN Reason Stop Dose Admin Norepinephrine Bitartrate 4 mg 254 mls @ 0 mls/hr 04/08/20 02:45 04/08/20 03:04 / Dextrose IV 2 mcg/min .Q0M EMY 7.6 mls/hr Administration Protocol Per Protocol Potassium Chloride/Sodium Chloride 20 meq in 1,000 mls @ 125 mls/hr 04/08/20 03:15 04/08/20 03:28 Sodium Chlor 0.9% + Kcl 20 Meq IV 125 mls/hr .Q8H EMY Administration Vasopressin 40 unit/ Sodium 40 mls @ 0.03 mls/min 04/08/20 04:30 04/08/20 04:30 Chloride IV 1.8 mls/min CONT EMY Administration PFSH Acute PFSH: Medical History Atrial fibrillation Rate controlled Branchial cleft cyst Congestive heart failure Diabetes mellitus Dyslipidemia Hypertension Sciatica Surgical History H/O section H/O vein stripping History of appendectomy History of fracture of left hip (~01/2020) with pinning History of total left hip arthroplasty (~02/2020) with revision 02/2020 Family History Father Cancer Colon cancer - of this. Mother Broken hip Social History Smoking and tobacco status: former smoker Alcohol intake: never Substance/Drug Use: never Housing: [facility] Marital status: Vitals/I&O/Wt Last Vital Signs Temp 97.3 F L 04/08/20 04:00 Pulse 77 04/08/20 05:01 Resp 23 H 04/08/20 04:35 BP 68/41 04/08/20 04:35 Pulse Ox 99 04/08/20 05:01 04/07/20 04/07/20 04/08/20 14:59 22:59 06:59 Intake Total 1000 / 1000 0 / 1000 Balance 1000 / 1000 0 / 1000 Weight last 48 hrs Weight 216 lb Physical Exam Narrative: EXAM NARRATIVE: Patient is conscious yet confused BMI 16 Head and neck examination PERRLA no masses no cervical lymphadenopathy no jaundice Cardiac examination audible S1-S2 no murmurs no gallops no arrhythmias Chest is clear bilateral,abscence of Rhonchi or wheezes,no surgical emphysema Abdomen diffuse tender distended Cates catheter in place with scanty amount of urine Left hip dressing in place Urinary Catheter Management^: Cates: Cath Placed During This Visit: no Data Micro: Micro: Microbiology 04/07/20 20:35 Blood Culture - Pr eliminary Blood SPECIMEN [facility] AGU[facility] 04/07/20 22:24 Blood Culture - Pr eliminary Blood SPECIMEN [facility] A&P Assessment and plan (1) Large bowel obstruction: 0535 am After history taking physical examination and reviewing the chart and images with my personal interpretation, patient will require exploratory laparotomy with likely subtotal colectomy,Keith's procedure and an end ileostomy. I do believe that the patient is at high risk of complications given the overall clinical picture I did talk in length and in depth with Mr. Puri over the phone about his spouse's overall condition and I did encourage him to come over to visit her at the hospital due to her critical condition, in the interim he would think about potential options that I gave him whether to proceed with surgery understanding the high risk of complications or whether not to,he said that he will need about an hour to think about it and let us know. The plan of care has been discussed in the presence of ICU charge nurse María that she spoke with the spouse to make sure that he understood the potential opt ions. Continue coordinating with the hospitalist service 07:45 am I did discuss in length and in depth [id number] with Mr. Puri in the presence of the patient and caring nurses Myra and Latisha as well patient's respiratory therapist Agustina.I did discuss in details about potential options of surgical intervention in the form of exploratory laparotomy and subtotal colectomy with ileostomy and the potential associated morbidities and postoperative ICU and potential vegetative status postoperatively. At this point Mr. Puri elected comfort care measures and he wanted to get a hold of his older son and spouse's sister updated him as well. Assurance and education All questions have been answered and all concerns have been addressed to patient's spouse's satisfaction. We will continue coordinating with Dr. Garcia Status: Acute Consult Attestations Medical Necessity Statement: Per hospitalist service Time Spent in Patient Care: Greater than 35 minutes (>than 50% of time spent in counselling and/or direct pt care on unit) . 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
[2020-04-08] MEDS: piperacillin-tazobactam 3.375 GM in sodium chloride 0.9% (plus) 50 ML IV (05:37)
[2020-04-08 07:36] LABS: Basophils # 0.1 10^3/uL (0.0-0.1); Basophils % 0.2 %; Hematocrit 33.4 % (37.0-47.0); Hemoglobin 9.9 g/dL (11.5-15.3); Lymphocytes # 0.7 10^3/uL (0.8-4.8); Mean Corpuscular HGB Conc 29.6 g/dL (30.0-36.0); Mean Corpuscular Volume 94.4 fL (81-99); Mean Platelet Volume 9.7 fL (7.4-10.4); Monocytes # 1.9 10^3/uL (0.2-0.9); Monocytes % 7.7 %; Neutrophils # 21.93 10^3/uL (1.8-7.7); Neutrophils % 88.5 %; Nucleated Red Blood Cells % 0 %; Platelet Count 502 10^3/cmm (130-400); Red Blood Count 3.54 10^6/uL (4.1-5.3); Red Cell Distribution Width 15.9 % (12.1-15.1); White Blood Count 24.8 10^3/uL (4.0-10.0)
[2020-04-08 07:39] LABS: INR 1.43 (0.8-1.2)
[2020-04-08 07:47] LABS: Digoxin 1.7 ng/mL (0.6-1.2)
[2020-04-08 07:51] LABS: Alanine Aminotransferase 13 U/L (0-33); Albumin Level 2.7 g/dL (3.5-5.2); Alkaline Phosphatase 99 IU/L (35-105); Anion Gap 16.6 (5-19); Aspartate Amino Transferase 21 U/L (0-32); Blood Urea Nitrogen 35 mg/dL (8-23); Calcium 6.8 mg/dL (8.5-10.5); Carbon Dioxide 27 mmol/L (22-29); Chloride 96 mmol/L (98-107); Globulin 2.3 g/dL (1.3-4.6); Glucose 173 mg/dL (65-115); Magnesium 1.5 mg/dL (1.7-2.3); Osmolality Calculated 284 mOsm/kg (285-295); Phosphorus 6.6 mg/dL (2.5-4.5); Potassium 3.6 mmol/L (3.5-5.1); Sodium 136 mmol/L (136-145); Total Bilirubin 0.6 mg/dL (0.15-1.2)
--- NOTE | 2020-04-08 07:51 | PC.NURSE ---
dr lozano in to explain risks of surgery to pt. and . pt. had taken bipap off so nasal cannula placed at 4l. will monitor. pt. oriented to place, name.
[2020-04-08 07:56] LABS: Creatine Phosphokinase 488 U/L (26-192)
[2020-04-08] MEDS: pantoprazole 40 mg SDV IVP (08:09)
[2020-04-08] MEDS: magnesium sulfate premix 4 GM/100 ML PREMIX IV ×2 (09:32→09:38)
[2020-04-08] MEDS: morphine 4 mg/mL SDV 1 mL 2 MG IVP (10:38)
--- NOTE | 2020-04-08 11:01 | PC.NURSE ---
Gave 1 mg of morphine to try and control pain, with additonal 1 mg of ordered dose drawn up and waiting to give if pain intensity does not decrease. Lower dose given to try and avoid a BP drop with clinical medical transcriptionist. Pushed 1mg/0.25 mL over 5 mins. Wasted remaining 2mg with MOOKIE Barkley in med room. Stayed and observed Pt BP afterwards to assess BP after admin.
[2020-04-08 11:30] LABS: Glucose Point of Care 158 mg/dL (70-110)
--- NOTE | 2020-04-08 11:49 | PC.NURSE ---
Pt complaining of increased amounts of pain. Requested a pain pill . MOOKIE Barkley directed to give 0.25mL of the remaining ordered morphine to pt. Pushed slowly over 5 mins to decrease risk for further hypotension. Pt still has 0.25 mL of IVP morphine remaining for pain. Will assess patient pain levels again in 15 mins with BP assessment.
--- NOTE | 2020-04-08 12:00 | PC.NURSE ---
b/p readings variable. doppler 58/d. at bedside.
[2020-04-08 13:27] LABS: Hematocrit 33.5 % (37.0-47.0); Hemoglobin 9.8 g/dL (11.5-15.3)
--- NOTE | 2020-04-08 13:44 | PC.NURSE ---
resting quietly bp 68/d
--- NOTE | 2020-04-08 14:23 | PC.NURSE ---
bp 68/d after turning. had med. soft unformed bm. pillow used between legs. oozing red drainage from hip incision.
--- NOTE | 2020-04-08 14:37 | PC.NURSE ---
Rounded on pt, and assessed the SPO2 down near 84%. Readjusted NC and bumped the O2 up to 4L. Pt SPO2 then bumped to 95%. Will continue to monitor.
--- NOTE | 2020-04-08 14:46 | PC.NURSE ---
Per last entry, SPO2 levels have dropped to 83% again. Raised the HOB to [place] again. Adjusted NC, and let RT know of pt condition. RT rounding on her now.
[2020-04-08 15:11] LABS: Arterial Blood Gas Hematocrit 31.8 % (37-47); Base Excess ABG -6.7 mmol/L (-2.0-2.0); Blood Gas Operator Identificat amh; Blood Gas Sample Site Brachial, right; Blood Gas Sample Type Arterial; HCO3 ABG 24.7 mmol/L (22-26); Oxygen Device NC; PO2 ABG 91.9 mmHg (80.0-100.0)
[2020-04-08 15:25] LABS: ABG PH Result 7.06 (7.35-7.45)
[2020-04-08 15:26] LABS: ABG PCO2 88.5 mmHg (35-45)
[2020-04-08 16:09] LABS: Basophils # 0.1 10^3/uL (0.0-0.1); Basophils % 0.2 %; Hematocrit 33.9 % (37.0-47.0); Hemoglobin 10.1 g/dL (11.5-15.3); Lymphocytes # 0.9 10^3/uL (0.8-4.8); Lymphocytes % 2.6 %; Mean Corpuscular HGB Conc 29.8 g/dL (30.0-36.0); Mean Corpuscular Hemoglobin 28.9 pg (28.0-34.0); Mean Corpuscular Volume 96.9 fL (81-99); Mean Platelet Volume 9.7 fL (7.4-10.4); Monocytes # 2.3 10^3/uL (0.2-0.9); Monocytes % 6.9 %; Neutrophils # 29.51 10^3/uL (1.8-7.7); Neutrophils % 88.4 %; Nucleated Red Blood Cells % 0 %; Platelet Count 607 10^3/cmm (130-400); Red Cell Distribution Width 16.5 % (12.1-15.1)
[2020-04-08 16:21] LABS: Lactate (Lactic Acid level) 2.2 mmol/L (0.5-2.2)
[2020-04-08 16:30] LABS: Alanine Aminotransferase 15 U/L (0-33); Albumin Level 2.7 g/dL (3.5-5.2); Alkaline Phosphatase 105 IU/L (35-105); Anion Gap 17.7 (5-19); Aspartate Amino Transferase 26 U/L (0-32); Blood Urea Nitrogen 34 mg/dL (8-23); Carbon Dioxide 25 mmol/L (22-29); Chloride 97 mmol/L (98-107); Globulin 3.2 g/dL (1.3-4.6); Glucose 150 mg/dL (65-115); Osmolality Calculated 280 mOsm/kg (285-295); Potassium 4.7 mmol/L (3.5-5.1); Sodium 135 mmol/L (136-145); Total Bilirubin 0.4 mg/dL (0.15-1.2); Total Protein 5.9 g/dL (6.6-8.7)
--- NOTE | 2020-04-08 17:12 | PM.DDS ---
Discharge Providers DDS Date of Admission: 04/07/20 22:46 Date Summary Completed: 04/08/20 Attending Provider at Admission: Yuni Weems MD Time of : 17:05 Attending Provider at Discharge: Yuni Weems MD Primary Care Provider: Reece Garcia MD DS Diagnoses Hospital Diagnoses (1) Large bowel obstruction: (2) Septic shock: (3) Elevated INR: (4) Acute renal failure: Qualifiers: Acute renal failure type: with acute tubular necrosis Qualified Code(s): N17.0 - Acute kidney failure with tubular necrosis (5) Hematoma of leg: Qualifiers: Encounter type: initial encounter Laterality: left Qualified Code(s): S80.12XA - Contusion of left lower leg, initial encounter (6) Diabetes mellitus: Qualifiers: Diabetes mellitus complication status: with hyperglycemia Diabetes mellitus yeast distiller insulin use: without mcc use Diabetes mellitus type: type 2 Qualified Code(s): E11.65 - Type 2 diabetes mellitus with hyperglycemia (7) Congestive heart failure: Qualifiers: Heart failure chronicity: chronic Heart failure type: unspecified Qualified Code(s): I50.9 - Heart failure, unspecified Reason for Visit Reason for Visit: Abd Distended, Hypotensive, GI Bleed Summary Date and Time of : Date of : 04/08/20 Time of : 17:05 Summary: Summary: The patient presented to the hospital with concerns for nausea and vomiting for 3 to 4 days while at the [place] [facility]. The patient began having abdominal pain and was taken to the ER for further evaluation. In the ER the patient was found to be in septic shock and with a large bowel obstruction in the sigmoid colon region with signs of air in the colon wall. A CT scan suggested that this may be due to a be cancerous cause. The patient had an elevated lactic acid and hypotension. The patient was started on IV antibiotics with vancomycin and Zosyn. She was given IV fluids and started on Levophed with vasopressin. Dr. Lobo was consulted for surgical evaluation and he discussed the case with the patient's . The patient was not oriented. Dr. Lobo explained that the patient was significantly ill and that she would not likely survive sedation for a significant surgery. He also explained that prognosis without surgery was extremely poor. The patient's said that the patient had expressed that she would not want to live in a state where she could not care for herself well and having a colectomy would not be part of her wishes. The patient also discussed with me in the past on more than one occasion that she did not want to have a colonoscopy and that if she had colon cancer, that she would not want to know it and to let her go peacefully. With the patient's wishes in mind, the patient's decided that no surgical intervention was to be done. We tried to maximize medical management, however the patient's status continued to decline. Despite pressors, BiPAP and IV antibiotics the patient continued to decline. She did not tolerate the BiPAP well. The patient had an allow natural order. At 1705 on 04/08/2020, the patient went into asystole. The patient peacefully. The patient's will be notified by nursing staff. Additional Data: Was code activated?: No Advance directives?: Yes Discharge Plan Discharge Patient Disposition: Condition: Prescriptions: No Action furosemide 40 mg tablet 40 mg PO DAILY RF: 0 metformin 500 mg tablet See Rx Instructions .ROUTE .COMPLEX RF: 0 acetaminophen [Tylenol] 325 mg Tablet 325 mg PO QID PRN (Reason: Pain) RF: 0 citalopram [Celexa] 40 mg tablet 40 mg PO DAILY RF: 0 digoxin 250 mcg (0.25 mg) tablet 0.25 mcg PO DAILY RF: 0 simvastatin 40 mg tablet 40 mg PO DAILY RF: 0 potassium chloride 20 mEq tablet,ER particles/crystals 20 meq PO DAILY RF: 0 ferrous sulfate 325 mg (65 mg iron) tablet 324 mg PO BID RF: 0 gabapentin 100 mg capsule 100 mg PO BID RF: 0 warfarin [Coumadin] 5 mg Tablet 5 mg PO DAILY RF: 0 oxycodone-acetaminophen 5-325 mg tablet 1 tab PO Q4H PRN (Reason: pain) Qty: 40 RF: 0 carvedilol 12.5 mg Tablet 12.5 mg PO BID Qty: 60 RF: 0 lisinopril 10 mg Tablet 10 mg PO DAILY Qty: 30 RF: 0 Miralax 17 gram Powder In Packet 17 g PO DAILY PRN (Reason: Constipation) RF: 0 Senna-S 8.6-50 mg Tablet 8.6 tab PO BID PRN (Reason: Constipation) RF: 0 bisacodyl 10 mg Suppository 10 mg KS DAILY PRN (Reason: Constipation) RF: 0 Enema Disposable 19-7 gram/118 mL Enema 1 ml KS DAILY PRN (Reason: Constipation) RF: 0 Tubersol 5 tub. unit /0.1 mL Solution 0.1 ml INTRADERMAL ONCE RF: 0 Milk of Magnesia 400 mg/5 mL Suspension 30 ml PO DAILY PRN (Reason: Constipation) RF: 0 simethicone 125 mg Tablet,Chewable 125 mg PO QID PRN (Reason: Dyspepsia) RF: 0 DS Attestations Time Spent in /Discharge Care*: critical care time Critical Care Time (min): 40 Quality - AMI: AMI present?: No Quality - Stroke: CVA present?: No Quality - VTE: VTE present?: No Coding Level of Care Code Acute [employer] for [facility] Fwd Diagnoses Large bowel obstruction K56.609 Septic shock A41.9; R65.21 Elevated INR R79.1 Acute renal failure N17.0 Acute renal failure type: with acute tubular necrosis Hematoma of leg S80.12XA Encounter type: initial encounter Laterality: left Diabetes mellitus E11.65 Diabetes mellitus complication status: with hyperglycemia Diabetes mellitus yeast distiller insulin use: without mcc use Diabetes mellitus type: type 2 Congestive heart failure I50.9 Heart failure chronicity: chronic Heart failure type: unspecified
--- NOTE | 2020-04-08 17:37 | PC.NURSE ---
Remaining 0.25 mL of morphine wasted in sharps container in the med room witnessed by Lulú Robison RN.
[2020-04-08 18:07] LABS: White Blood Count 33.4 10^3/uL (4.0-10.0)
[2020-04-08 18:09] LABS: Slide Review Slide Review Perform
--- NOTE | 2020-04-08 18:48 | PC.NURSE ---
1700 heart rate dropping. no b/p agonal respirations.
--- NOTE | 2020-04-08 18:50 | PC.NURSE ---
1705 respirations ceased. unable to get pulses or b/p
--- NOTE | 2020-04-08 21:16 | PC.NURSE ---
Home [facility] here to receive patient. Body Transfer form signed and in the paper chart. Post-mortem care complete. Dentures, glasses and jewelry with patient. No further questions or concerns at this time.
== END 2020-04-08 21:09 | disposition expired | DRG 871 ==
LOC: ER 22:48 → ICU 23:20
PROVIDERS: Admitting Provider Hospitalist; Emergency Provider Emergency Medicine; PCP Family Medicine; Visit Provider Hospitalist
DX: A41.9 Sepsis, unspecified organism (principal); N17.0 Acute kidney failure with tubular necrosis; R65.21 Severe sepsis with septic shock; K56.609 Unspecified intestinal obstruction, unspecified as to partial versus complete obstruction; D62 Acute posthemorrhagic anemia; E44.0 Moderate protein-calorie malnutrition; Z68.1 Body mass index [BMI] 19.9 or less, adult; S80.12XA Contusion of left lower leg, initial encounter; Z66 Do not resuscitate; X58.XXXA Exposure to other specified factors, initial encounter; E11.65 Type 2 diabetes mellitus with hyperglycemia; I48.91 Unspecified atrial fibrillation; I11.0 Hypertensive heart disease with heart failure; Z91.81 History of falling; E78.5 Hyperlipidemia, unspecified; I50.9 Heart failure, unspecified; Z96.642 Presence of left artificial hip joint; Z87.891 Personal history of nicotine dependence; Z79.84 Long term (current) use of oral hypoglycemic drugs
CPT/HCPCS: 12345; 36415; 36416; 36430; 36600; 51702; 71045; 74177; 80053; 80162; 81001; 81003; 82274; 82330; 82550; 82803; 82962; 83605; 83735; 84100; 85014; 85018; 85025; 85610; 85730; 86141; 86850; 86900; 86920; 86927; 87040; 87205; 87493; 93005; 94660; 96372; 96375; 99284; C9113; J1815; J2270; J2543; J3370; J3430; J3475; J3490; J7030; J7040; J7050; P9016; P9017; Q9967